=== PATIENT | female | born 1990 | race Caucasian/White ===

== ENCOUNTER 2022-11-22 13:14 | Emergency (ER) | payer BC, SELFPAY ==
[2022-11-22 13:24] VITALS: BP 163/88; PULSE 89; RESP 18; TEMP 36.6; O2SAT 100; BMI 29.4
[2022-11-22] MEDS: 0.9 % SODIUM CHLORIDE 1000 ml 1,000 ML IV (13:42)
[2022-11-22] MEDS: ONDANSETRON 2 MG/ML inj 4 MG IVP ×2 (13:42→16:00)
--- NOTE | 2022-11-22 13:49 | ED_ITS ---
HPI - General Adult General Chief complaint: Unspecified Complaint, Adult Stated complaint: Numbness Hands/Feet Tunnel Vision Time Seen by Provider: 11/22/22 13:23 History of Present Illness HPI narrative: This 32-year-old female comes in reporting episodes of tingling in her hands and which she calls tunnel vision. She states that she was positive for COVID 6 weeks ago. Since then she has had episodes of these symptoms. She is otherwise in good health but states that she is undergoing treatments for infertility. She did start progesterone about 10 days ago but had these symptoms prior to that. She has had some nausea and vomiting. She does not report any dysuria, fever, or abdominal pain. She does get tension headaches and currently does have a headache. Related Data Home Medications Medication Instructions Recorded Confirmed sertraline 50 mg tablet 50 mg PO 10/08/22 10/08/22 Previous Rx's Medication Instructions Recorded meclizine 25 mg tablet 25 mg PO QID #20 tabs 11/22/22 ondansetron HCl 4 mg tablet 4 mg PO Q6H #20 tabs 11/22/22 Allergies Allergy/AdvReac Type Severity Reaction Status Date / Time metoclopramide [From Reglan] Allergy Severe syncope Verified 10/08/22 14:10 Review of Systems Status of ROS: Reports: 10 or more systems reviewed and unremarkable except as noted in History and below Narrative: Constitutional: No fevers, no weight gain or loss. Eyes: No discharge. No vision changes. HENT: No congestion, no sore throat, no ear pain. Cardiovascular: No chest pain, no palpitations. Respiratory: No shortness of breath, no wheezes, no cough. Gastrointestinal: No abdominal pain, no diarrhea. Nausea with vomiting. Genitourinary: No dysuria, no hematuria. Musculoskeletal: Normal range of motion. Skin: No rashes, no pruritis. Neurological: No weakness, speech change. She has episodes of tingling in her hands with lightheadedness. Endo/Heme/Allergies: No bruising or bleeding. No polydipsia. Pysch: no suicidality, no anxiety, no insomnia. All other systems reviewed and are negative. PFSH PFSH Social History Smoking Status: Never smoker Non-prescribed substance use: denies use Exam Const: Vital Signs, click to edit/add: Vital Signs - 24 hr 11/22/22 13:24 11/22/22 14:21 11/22/22 16:00 Temperature 97.8 F Pulse Rate [Right Pulse Oximeter] 89 76 92 Respiratory Rate 18 14 Blood Pressure [Ri ght Upper Arm] 163/88 H 124/77 172/98 H Pulse Oximetry 100 97 98 Oxygen Delivery Me thod Room Air Room Air Room Air 11/22/22 16:30 11/22/22 16:45 Temperature Pulse Rate [Right Pulse Oximeter] 99 93 Respiratory Rate 24 22 Blood Pressure [Ri ght Upper Arm] 178/102 H 191/107 H Pulse Oximetry 95 94 Oxygen Delivery Me thod Room Air Room Air Course Vital Signs Vital signs: Initial Vital Signs Temperature 97.8 F 11/22/22 13:24 Temperature Source Temporal Artery Scan 11/22/22 13:24 Pulse Rate 89 11/22/22 13:24 Respiratory Rate 18 11/22/22 13:24 Blood Pressure 163/88 H 11/22/22 13:24 Blood Pressure Mean 113 11/22/22 13:24 Blood Pressure Position Sitting 11/22/22 13:24 Pulse Oximetry 100 11/22/22 13:24 Oxygen Delivery Method 11/22/22 13:24 Vital Signs Temperature 97.8 F 11/22/22 13:24 Pulse Rate 89 11/22/22 13:24 Respiratory Rate 18 11/22/22 13:24 Blood Pressure 163/88 H 11/22/22 13:24 Pulse Oximetry 100 11/22/22 13:24 Oxygen Delivery Method 11/22/22 13:24 Temperature 97.8 F 11/22/22 13:24 Pulse Rate 93 11/22/22 16:45 Respiratory Rate 22 11/22/22 16:45 Blood Pressure 191/107 H 11/22/22 16:45 Pulse Oximetry 94 11/22/22 16:45 Oxygen Delivery Method 11/22/22 16:45 Medical Decision Making MDM Narrative Medical decision making narrative: This patient comes in episodes of dizziness with some brief visual changes. An IV was established and labs were drawn. She received a L of normal saline initially and states that she did not feel much better. Lab results returned with normal findings. She states that she has several in her family who have had various scan of brain tumors and this is a fear that is lurking in the background of her symptoms. So a CT scan of the head is acquired and returns with no acute findings. She also received IV dose of Zofran 4 mg and an oral dose of meclizine 25 mg. This did bring relief to her symptoms. She is reassured with lab and imaging results. She is okay to be discharged home and a prescription is provided for both Zofran and meclizine. Lab Data Labs: Lab Results 11/22/22 11/22/22 11/22/22 Range/Units 14:15 14:15 14:16 WBC 6.01 (4.50-11.00) K/uL RBC 4.85 (4.00-5.20) m/uL Hgb 13.6 (12.0-16.0) gm/dL Hct 41.8 (33.0-51.0) % MCV 86 (80-100) fL MCH 28 (26-34) pg MCHC 33 (32-36) gm/dL RDW Coeff of Dave 13.2 (11.5-15.5) % Plt Count 256 (140-440) K/uL Neut % (Auto) 53.0 (42.0-72.0) % Lymph % (Auto) 40.3 (20-44) % [place] % (Auto) 5.7 (0.0-11.0) % Eos % (Auto) 0.5 (0.0-7.0) % Baso % (Auto) 0.3 (0.0-3.0) % Neut # (Auto) 3.19 (1.7-7.0) K/uL Lymph # (Auto) 2.42 (0.90-2.90) K/uL [place] # (Auto) 0.30 (0.00-0.90) K/UL Eos # (Auto) 0.03 (0.00-0.50) K/uL Baso # (Auto) 0.02 (0.00-0.30) K/uL Sodium 141 (135-149) mmol/L Potassium 3.6 (3.6-5.1) mmol/L Chloride 109 (96-114) mmol/L Carbon Dioxide 23 (20-32) mmol/L BUN 6 (5-24) mg/dL Creatinine 0.6 (0.5-1.5) mg/dL Estimated Creat Clear 148.26 Estimated GFR 124 ml/min Glucose 88 (60-115) mg/dL Calcium 8.6 (8.4-10.6) mg/dL C-Reactive Protein < 0.5 L (0.5-1.0) mg/dL SARS-CoV-2 (PCR) Negative SARS-CoV-2 (Negative) Influenza Type A (PCR) Negative PCR FLU A (Negative) Influenza Type B (PCR) Negative PCR FLU B (Negative) RSV (PCR) Negative PCR RSV (Negative) Imaging Data CT scan - head: Radiologist's impression: Unremarkable noncontrast head CT. Discharge Plan Discharge Clinical Impression: Acute vestibular neuritis Patient Disposition: Home, Self-Care Condition: Improved Additional Instructions: Take medication as needed and indicated. Follow up with MD or return if worsening. Prescriptions: New ondansetron HCl 4 mg tablet 4 mg PO Q6H Qty: 20 0RF meclizine 25 mg tablet 25 mg PO QID Qty: 20 0RF No Action sertraline 50 mg tablet 50 mg PO Label Comments: TAKE ONE TABLET BY MOUTH EVERY DAY DIRECTED Follow Up/Referrals: Provider,Not a Local [Primary Care Provider] - Stand Alone Forms: [facility] Info Instructions
[2022-11-22 14:21] VITALS: BP 124/77; PULSE 76; RESP 14; O2SAT 97
[2022-11-22 14:21] LABS: Basophils Absolute Auto 0.02 K/uL (0.00-0.30); Basophils Percent Auto 0.3 % (0.0-3.0); Eosinophils Absolute Auto 0.03 K/uL (0.00-0.50); Eosinophils Percent Auto 0.5 % (0.0-7.0); Hematocrit 41.8 % (33.0-51.0); Hemoglobin* 13.6 gm/dL (12.0-16.0); Immature Granulocytes Abs Auto 0.01 K/uL (0.00-0.30); Immature Granulocytes Pct Auto 0.2 %; Lymphocytes Absolute Auto 2.42 K/uL (0.90-2.90); Lymphocytes Percent Auto 40.3 % (20-44); Mean Corpuscular HGB Conc 33 gm/dL (32-36); Mean Corpuscular Hemoglobin 28 pg (26-34); Mean Corpuscular Volume 86 fL (80-100); Monocytes Percent Auto 5.7 % (0.0-11.0); Neutrophils Absolute Auto 3.19 K/uL (1.7-7.0); Platelet Count* 256 K/uL (140-440); RDW Coefficient of Variation % 13.2 % (11.5-15.5); Red Blood Count 4.85 m/uL (4.00-5.20); White Blood Count* 6.01 K/uL (4.50-11.00)
[2022-11-22 14:22] LABS: Slide Review Reflex No
[2022-11-22 15:03] LABS: Chloride* 109 mmol/L (96-114); Potassium* 3.6 mmol/L (3.6-5.1); Sodium* 141 mmol/L (135-149)
[2022-11-22 15:05] LABS: Creatinine* 0.6 mg/dL (0.5-1.5); Est. Creatinine Clearance* 148.26; Estimated Glomerular Filt Rate 124 ml/min
[2022-11-22 15:06] LABS: Blood Urea Nitrogen* 6 mg/dL (5-24); Carbon Dioxide* 23 mmol/L (20-32)
[2022-11-22 15:07] LABS: Calcium* 8.6 mg/dL (8.4-10.6); Glucose* 88 mg/dL (60-115)
[2022-11-22 15:10] LABS: C Reactive Protein* < 0.5 mg/dL (0.5-1.0)
[2022-11-22 15:16] LABS: PCR FLU A Negative PCR FLU A (Negative); PCR FLU B Negative PCR FLU B (Negative); PCR RSV Negative PCR RSV (Negative)
[2022-11-22 15:23] LABS: SARS PCR* Negative SARS-CoV-2 (Negative)
--- NOTE | 2022-11-22 15:33 | CRLHL7_ITS ---
For Patients: As a result of the Century Cures Act, medical imaging exams and procedure reports are released immediately into your electronic medical record. You may view this report before your referring provider. If you have questions, please contact your health care provider. INDICATION: Headache and vertigo. TECHNIQUE: CT head without contrast. COMPARISON: None. FINDINGS: CSF spaces: Within normal limits for age. Brain parenchyma and extra-axial spaces: The winter-white differentiation is normal. No sign of mass, hemorrhage, or midline shift. No extra-axial fluid collection. Skull base and calvarium: The visualized paranasal sinuses and mastoid air cells demonstrate no acute or significant findings. The visualized orbits are grossly unremarkable. No skull fractures. IMPRESSION: Unremarkable noncontrast head CT. Please note that all CT scans at this facility use dose modulation, iterative reconstruction, and/or weight-based dosing when appropriate to reduce radiation dose to as low as reasonably achievable. Dictated by Salazar Coelho MD @ 11/22/2022 4:45:29 PM (Electronically Signed)
[2022-11-22 16:00] VITALS: BP 172/98; PULSE 92; O2SAT 98
[2022-11-22] MEDS: MECLIZINE HCL 25 MG TABLET PO (16:00)
[2022-11-22 16:30] VITALS: BP 178/102; PULSE 99; RESP 24; O2SAT 95
[2022-11-22 16:45] VITALS: BP 191/107; PULSE 93; RESP 22; O2SAT 94
--- NOTE | 2022-11-22 17:05 | ED.NURSE ---
any blood pressures entered by this sba underwriter are charted in error.
== END 2022-11-22 17:45 | disposition home or self-care (01) ==
PROVIDERS: Emergency Provider Emergency Medicine Emergency Medical Services
DX: H81.23 Vestibular neuronitis, bilateral (principal)
CPT/HCPCS: 36415; 70450; 80048; 85025; 86140; 87502; 87634; 87635; 96361; 96374; 96376; 99284; A9270; J2405; J7030

== ENCOUNTER 2023-12-31 18:28 | Outpatient (CLI) | payer BC, SELFPAY | END 2023-12-31 18:29 | disposition home or self-care (01) | LOC: AMB 01-03 11:13 | PROVIDERS: Visit Provider Student in an Organized Health Care Education/Training Program | DX: R55 Syncope and collapse (principal); M54.2 Cervicalgia; R11.2 Nausea with vomiting, unspecified | CPT/HCPCS: A0425; A0427 ==

== ENCOUNTER 2023-12-31 19:01 | Emergency (ER) | payer BC, SELFPAY ==
[2023-12-31 19:08] VITALS: BP 141/86; PULSE 83; RESP 18; TEMP 36.4; O2SAT 100; BMI 26.4
--- NOTE | 2023-12-31 19:16 | ED_ITS ---
HPI - General Adult General Chief complaint: Constipation <Donte Lange MD - Last Filed: 01/02/24 23:56> Stated complaint: weak <Donte Lange MD - Last Filed: 01/02/24 23:56> Time Seen by Provider: 12/31/23 19:13 <Donte Lange MD - Last Filed: 01/02/24 23:56> History of Present Illness HPI narrative: Patient here today after having some nausea/dry heaving that triggered LLQ abdominal pain and neck pain at 07/31. Patient had C5- C6 surgery on Tuesday and no BM since that time. Tried enema and suppository at home without effect. 4 mg PO zofran given by EMS. Taking opioids at home after surgery. 33-year-old woman presenting to the emergency department <Donte Lange MD - Last Filed: 01/02/24 23:56> 33-year-old woman presenting to the emergency department with abdominal pain. Patient is postop day number 4, status post C5-C6 disc surgery. She she has been doing well postoperatively until today she started feeling nauseated. She stated that she started having abdominal cramping and then started dry heaving. Right when she was dry heaving she felt very lightheaded and tingly all over. she went to lay down when her significant other was helping her, and she fainted very briefly. He was able to hold her up and put her on the bed. She is now complaining of significant abdominal discomfort that is worse than left lower quadrant but is diffuse. She states that she is passing gas, but is less than usual and she feels very bloated. She had her last dose of narcotics yesterday. She has not had a bowel movement since Tuesday. She denies any fevers. No chills. Her neck pain has been well controlled. She did try an enema earlier today and did not have any results. She is also on daily Colace in the morning and 1 spoonful of Metamucil per day. <Thelma Taveras MD - Last Filed: 01/01/24 00:00> Related Data Home medications: Home Medications Medication Instructions Recorded Confirmed sertraline 50 mg tablet 50 mg PO 10/08/22 10/08/22 acetaminophen 500 mg tablet 500 mg PO Q6H PRN 12/31/23 12/31/23 (Tylenol Extra Strength) docusate sodium 100 mg capsule 100 mg PO BID 12/31/23 12/31/23 hydroxyzine HCl 25 mg tablet 25 mg PO QID PRN 12/31/23 12/31/23 oxycodone 5 mg tablet 5 - 10 mg PO Q4-6H PRN pain 12/31/23 12/31/23 Previous Rx's Medication Instructions Recorded meclizine 25 mg tablet 25 mg PO QID #20 tabs 11/22/22 ondansetron HCl 4 mg tablet 4 mg PO Q6H #20 tabs 11/22/22 <Donte Lange MD - Last Filed: 01/02/24 23:56> Allergies/adverse reactions: Allergies Allergy/AdvReac Type Severity Reaction Status Date / Time metoclopramide [From Reglan] Allergy Severe syncope Verified 10/08/22 14:10 <Donte Lange MD - Last Filed: 01/02/24 23:56> Review of Systems Status of ROS: Reports: 10 or more systems reviewed and unremarkable except as noted in History and below <Thelma Taveras MD - Last Filed: 01/01/24 00:00> [facility] Social History: Social History Smoking Status: Never smoker Non-prescribed substance use: denies use <Donte Lange MD - Last Filed: 01/02/24 23:56> Exam Narrative: Exam Narrative: Well-nourished well-developed patient , appears uncomfortable. Alert and oriented X3. Answers questions appropriately. Mood and affect are appropriate. Thoughts are goal oriented and rational. No tangential or magical thinking noted. Patient speaks in full sentences without needing to catch her breath. HEENT: Normocephalic atraumatic. Pupils are equally round reactive to light. Extraocular muscles are intact. Conjunctivae are moist without any icterus noted. Moist mucous membranes. neck is clearly stiff. Incision on the anterior neck is dressed, there is no surrounding erythema or oozing from the dressing. Cardiovascular: Heart is regular rate and rhythm S1 and S2 are present without any murmurs. Lungs: Clear to auscultation bilaterally no wheezes rhonchi or rales are appreciated. Patient takes deep breaths without any discomfort. Abdomen: Soft and Mildly distended. She does have hypoactive bowel sounds. She has mild tenderness throughout the entire abdomen, left lower quadrant more tender than the remainder of the abdomen. Extremities: Bilateral lower extremities are without edema. Normal DP and PT pulses. Skin: Well perfused without any obvious rashes. <Thelma Taveras MD - Last Filed: 01/01/24 00:00> Const: Vital Signs, click to edit/add: Vital Signs - 24 hr 12/31/23 19:08 12/31/23 21:13 12/31/23 21:25 Temperature 97.6 F Pulse Rate 82 Pulse Rate [Pulse Oximeter] 83 Respiratory Rate 18 Blood Pressure [Le ft Upper Arm] 141/86 H Pulse Oximetry 100 96 97 Oxygen Delivery Me thod Room Air 12/31/23 21:30 12/31/23 21:45 12/31/23 22:00 Temperature Pulse Rate 79 81 84 Pulse Rate [Pulse Oximeter] Respiratory Rate Blood Pressure [Le ft Upper Arm] Pulse Oximetry 98 91 99 Oxygen Delivery Me thod <Donte Lange MD - Last Filed: 01/02/24 23:56> Vital Signs, click to edit/add: Vital Signs - 24 hr 12/31/23 19:08 12/31/23 21:13 12/31/23 21:25 Temperature 97.6 F Pulse Rate 82 Pulse Rate [Pulse Oximeter] 83 Respiratory Rate 18 Blood Pressure [Le ft Upper Arm] 141/86 H Pulse Oximetry 100 96 97 Oxygen Delivery Me thod Room Air 12/31/23 21:30 12/31/23 21:45 12/31/23 22:00 Temperature Pulse Rate 79 81 84 Pulse Rate [Pulse Oximeter] Respiratory Rate Blood Pressure [Le ft Upper Arm] Pulse Oximetry 98 91 99 Oxygen Delivery Me thod <Thelma Taveras MD - Last Filed: 01/01/24 00:00> Course Course ED Course: Differential diagnosis includes postop ileus, narcotic induced ileus, colitis, constipation. Less likely but still on the differential include pancr eatitis, ischemic colitis, UTI. IV is established and patient was given a L of normal saline and Zofran. CBC shows an elevated white cell count 14.86, 88.9% neutrophils. Chemistries are unremarkable. Normal LFTs and lipase. Normal CRP. UA is unremarkable. Negative test. Abdominal x-ray shows multiple air-fluid levels, nonspecific pattern. Given the amount of discomfort she was having and the concern for an obstruction, we did proceed with an abdominal CT scan which shows large stool and gas burden in the colon. There is also an area of ascending colonic wall thickening and mild adjacent fluid which could represent early stercoral colitis. Patient received enema while she was in the ED, no results. <Thelma Taveras MD - Last Filed: 01/01/24 00:00> Vital Signs Vital signs: Initial Vital Signs Temperature 97.6 F 12/31/23 19:08 Temperature Source Temporal Artery Scan 12/31/23 19:08 Pulse Rate 83 12/31/23 19:08 Pulse Rhythm Regular 12/31/23 19:08 Respiratory Rate 18 12/31/23 19:08 Blood Pressure 141/86 H 12/31/23 19:08 Blood Pressure Mean 104 12/31/23 19:08 Blood Pressure Position Sitting 12/31/23 19:08 Pulse Oximetry 100 12/31/23 19:08 Oxygen Delivery Method Room Air 12/31/23 19:08 Vital Signs Temperature 97.6 F 12/31/23 19:08 Pulse Rate 83 12/31/23 19:08 Respiratory Rate 18 12/31/23 19:08 Blood Pressure 141/86 H 12/31/23 19:08 Pulse Oximetry 100 12/31/23 19:08 Oxygen Delivery Method Room Air 12/31/23 19:08 Temperature 97.6 F 12/31/23 19:08 Pulse Rate 84 12/31/23 22:00 Respiratory Rate 18 12/31/23 19:08 Blood Pressure 141/86 H 12/31/23 19:08 Pulse Oximetry 99 12/31/23 22:00 Oxygen Delivery Method Room Air 12/31/23 19:08 <Donte Lange MD - Last Filed: 01/02/24 23:56> Initial Vital Signs Temperature 97.6 F 12/31/23 19:08 Temperature Source Temporal Artery Scan 12/31/23 19:08 Pulse Rate 83 12/31/23 19:08 Pulse Rhythm Regular 12/31/23 19:08 Respiratory Rate 18 12/31/23 19:08 Blood Pressure 141/86 H 12/31/23 19:08 Blood Pressure Mean 104 12/31/23 19:08 Blood Pressure Position Sitting 12/31/23 19:08 Pulse Oximetry 100 12/31/23 19:08 Oxygen Delivery Method Room Air 12/31/23 19:08 Vital Signs Temperature 97.6 F 12/31/23 19:08 Pulse Rate 83 12/31/23 19:08 Respiratory Rate 18 12/31/23 19:08 Blood Pressure 141/86 H 12/31/23 19:08 Pulse Oximetry 100 12/31/23 19:08 Oxygen Delivery Method Room Air 12/31/23 19:08 Temperature 97.6 F 12/31/23 19:08 Pulse Rate 84 12/31/23 22:00 Respiratory Rate 18 12/31/23 19:08 Blood Pressure 141/86 H 12/31/23 19:08 Pulse Oximetry 99 12/31/23 22:00 Oxygen Delivery Method Room Air 12/31/23 19:08 <Thelma Taveras MD - Last Filed: 01/01/24 00:00> Medications Administered Medications: Discontinued Medications Generic Name Dose Route Start Last Admin Trade Name Freq PRN Reason Stop Dose Admin Hydromorphone HCl 0.5 mg 12/31/23 20:57 12/31/23 21:08 Hydromorphone 0.5 Mg/0.5 Ml Inj IVP 12/31/23 20:58 0.5 mg ONCE ONE Administration Sodium Chloride 1,000 mls @ 1,000 mls/hr 12/31/23 20:00 12/31/23 21:37 0.9 % Sodium Chloride 1000 Ml IV 12/31/23 20:59 Infused .Q1H YOBANI Infusion Ketorolac Tromethamine 15 mg 12/31/23 22:25 12/31/23 22:32 Ketorolac 15 Mg/Ml Inj IVP 12/31/23 22:26 15 mg ONCE ONE Administration Ondansetron HCl 4 mg 12/31/23 19:59 12/31/23 21:08 Ondansetron 2 Mg/Ml Inj IVP 12/31/23 20:00 4 mg ONCE ONE Administration <Donte Lange MD - Last Filed: 01/02/24 23:56> Discontinued Medications Generic Name Dose Route Start Last Admin Trade Name Freq PRN Reason Stop Dose Admin Hydromorphone HCl 0.5 mg 12/31/23 20:57 12/31/23 21:08 Hydromorphone 0.5 Mg/0.5 Ml Inj IVP 12/31/23 20:58 0.5 mg ONCE ONE Administration Sodium Chloride 1,000 mls @ 1,000 mls/hr 12/31/23 20:00 12/31/23 21:37 0.9 % Sodium Chloride 1000 Ml IV 12/31/23 20:59 Infused .Q1H YOBANI Infusion Ketorolac Tromethamine 15 mg 12/31/23 22:25 12/31/23 22:32 Ketorolac 15 Mg/Ml Inj IVP 12/31/23 22:26 15 mg ONCE ONE Administration Ondansetron HCl 4 mg 12/31/23 19:59 12/31/23 21:08 Ondansetron 2 Mg/Ml Inj IVP 12/31/23 20:00 4 mg ONCE ONE Administration <Thelma Taveras MD - Last Filed: 01/01/24 00:00> Medical Decision Making MDM Narrative Medical decision making narrative: 33-year-old female with postoperative constipation. Plan below. <Thelma Taveras MD - Last Filed: 01/01/24 00:00> Lab Data Lab results reviewed: Yes I reviewed the patient's lab results <Thelma Taveras MD - Last Filed: 01/01/24 00:00> Labs: Lab Results 12/31/23 12/31/23 Range/Units 20:10 20:36 WBC 14.86 H (4.50-11.00) K/uL RBC 4.79 (4.00-5.20) m/uL Hgb 13.7 (12.0-16.0) gm/dL Hct 41.1 (33.0-51.0) % MCV 86 (80-100) fL MCH 29 (26-34) pg MCHC 33 (32-36) gm/dL RDW Coeff of Dave 12.6 (11.5-15.5) % Plt Count 268 (140-440) K/uL Neut % (Auto) 88.9 H (42.0-72.0) % Lymph % (Auto) 7.5 L (20-44) % [place] % (Auto) 3.3 (0.0-11.0) % Eos % (Auto) 0.1 (0.0-7.0) % Baso % (Auto) 0.1 (0.0-3.0) % Neut # (Auto) 13.20 H (1.7-7.0) K/uL Lymph # (Auto) 1.10 (0.90-2.90) K/uL [place] # (Auto) 0.50 (0.00-0.90) K/UL Eos # (Auto) 0.00 (0.00-0.50) K/uL Baso # (Auto) 0.00 (0.00-0.30) K/uL Abs Immat Gran (auto) 0.00 (0.00-0.30) K/uL Imm/Tot Granulo (auto) 0.1 % Sodium 134 L (135-149) mmol/L Potassium 4.4 (3.6-5.1) mmol/L Chloride 98 (96-114) mmol/L Carbon Dioxide 29 (20-32) mmol/L Anion Gap 7 (7-15) mEq/L BUN 10 (5-24) mg/dL Creatinine 0.7 (0.5-1.5) mg/dL Estimated Creat Clear 125.92 Estimated GFR 119 ml/min Glucose 109 (60-115) mg/dL Calcium 9.3 (8.4-10.6) mg/dL Total Bilirubin 0.4 (0.1-1.5) mg/dL Direct Bilirubin 0.2 (0.0-0.5) mg/dL AST 29 (12-35) U/L ALT 27 (4-35) U/L Alkaline Phosphatase 64 (40-150) U/L C-Reactive Protein 1.0 (0.5-1.0) mg/dL Total Protein 7.8 (6.0-8.3) g/dL Albumin 4.6 (3.3-5.0) g/dL Lipase 37 (23-300) U/L Urine Color Yellow (Yellow) Urine Appearance Clear (Clear) Urine pH 8.5 (5.0-8.5) Ur Specific [place] 1.015 (1.000-1.030) Urine Protein Negative (Negative) Urine Glucose (UA) Negative (Negative) Urine Ketones Negative (Negative) Urine Blood Negative (Negative) Urine Nitrite Negative (Negative) Urine Bilirubin Negative (Negative) Urine Urobilinogen 0.2 (0.2-1.0) Ur Leukocyte Esterase Negative (Negative) Urine RBC 0-2 (0-2) Urine WBC 0-2 (0-5) Ur Squamous Epith Cells None (None-Few) Urine Bacteria None (None) Urine HCG, Qual Negative (Negative) <Donte Lange MD - Last Filed: 01/02/24 23:56> Lab Results 12/31/23 12/31/23 Range/Units 20:10 20:36 WBC 14.86 H (4.50-11.00) K/uL RBC 4.79 (4.00-5.20) m/uL Hgb 13.7 (12.0-16.0) gm/dL Hct 41.1 (33.0-51.0) % MCV 86 (80-100) fL MCH 29 (26-34) pg MCHC 33 (32-36) gm/dL RDW Coeff of [place] 12.6 (11.5-15.5) % Plt Count 268 (140-440) K/uL Neut % (Auto) 88.9 H (42.0-72.0) % Lymph % (Auto) 7.5 L (20-44) % [place] % (Auto) 3.3 (0.0-11.0) % Eos % (Auto) 0.1 (0.0-7.0) % Baso % (Auto) 0.1 (0.0-3.0) % Neut # (Auto) 13.20 H (1.7-7.0) K/uL Lymph # (Auto) 1.10 (0.90-2.90) K/uL [place] # (Auto) 0.50 (0.00-0.90) K/UL Eos # (Auto) 0.00 (0.00-0.50) K/uL Baso # (Auto) 0.00 (0.00-0.30) K/uL Abs Immat Gran (auto) 0.00 (0.00-0.30) K/uL Imm/Tot Granulo (auto) 0.1 % Sodium 134 L (135-149) mmol/L Potassium 4.4 (3.6-5.1) mmol/L Chloride 98 (96-114) mmol/L Carbon Dioxide 29 (20-32) mmol/L Anion Gap 7 (7-15) mEq/L BUN 10 (5-24) mg/dL Creatinine 0.7 (0.5-1.5) mg/dL Estimated Creat Clear 125.92 Estimated GFR 119 ml/min Glucose 109 (60-115) mg/dL Calcium 9.3 (8.4-10.6) mg/dL Total Bilirubin 0.4 (0.1-1.5) mg/dL Direct Bilirubin 0.2 (0.0-0.5) mg/dL AST 29 (12-35) U/L ALT 27 (4-35) U/L Alkaline Phosphatase 64 (40-150) U/L C-Reactive Protein 1.0 (0.5-1.0) mg/dL Total Protein 7.8 (6.0-8.3) g/dL Albumin 4.6 (3.3-5.0) g/dL Lipase 37 (23-300) U/L Urine Color Yellow (Yellow) Urine Appearance Clear (Clear) Urine pH 8.5 (5.0-8.5) Ur Specific [place] 1.015 (1.000-1.030) Urine Protein Negative (Negative) Urine Glucose (UA) Negative (Negative) Urine Ketones Negative (Negative) Urine Blood Negative (Negative) Urine Nitrite Negative (Negative) Urine Bilirubin Negative (Negative) Urine Urobilinogen 0.2 (0.2-1.0) Ur Leukocyte Esterase Negative (Negative) Urine RBC 0-2 (0-2) Urine WBC 0-2 (0-5) Ur Squamous Epith Cells None (None-Few) Urine Bacteria None (None) Urine HCG, Qual Negative (Negative) <Thelma Taveras MD - Last Filed: 01/01/24 00:00> Imaging Data Abdominal x-ray: Attestation: I have reviewed the pertinent imaging results. <Thelma Taveras MD - Last Filed: 01/01/24 00:00> Radiologist's impression: Abdominal pain Technique: Flat and upright views of the abdomen Comparison: None Findings: Nonspecific scattered air-fluid levels are noted on upright imaging. There is prominence of colonic stool and transverse colon gas. The largest loops of small bowel measure up to 2.7 centimeters. No free air under the diaphragm. No acute osseous abnormality. No gross organomegaly. No dystrophic calcifications. Impression: Nonspecific bowel gas pattern with no acute radiographic abnormality appreciated. <Thelma Taveras MD - Last Filed: 01/01/24 00:00> CT scan - abdomen: Attestation: I have reviewed the pertinent imaging results. <Thelma Taveras MD - Last Filed: 01/01/24 00:00> Discharge Plan Discharge Clinical Impression: Constipation <Donte Lange MD - Last Filed: 01/02/24 23:56> Patient Disposition: Home, Self-Care <Donte Lange MD - Last Filed: 01/02/24 23:56> Condition: Stable <Donte Lange MD - Last Filed: 01/02/24 23:56> Additional Instructions: Start 2 scoops of MiraLax per day and continued use of Colace until bowel movements are regular, then can decrease MiraLax use. Increase water intake. Try to do some mild physical activity daily such as walking. Use enemas as needed. Try to decrease narcotic use if possible. <Donte Lange MD - Last Filed: 01/02/24 23:56> Activity Level: Activity as Tolerated <Donte Lange MD - Last Filed: 01/02/24 23:56> Activity as Tolerated <Thelma Taveras MD - Last Filed: 01/01/24 00:00> Prescriptions: No Action sertraline 50 mg tablet 50 mg PO Patient Comments: TAKE ONE TABLET BY MOUTH EVERY DAY DIRECTED ondansetron HCl 4 mg tablet 4 mg PO Q6H Qty: 20 0RF meclizine 25 mg tablet 25 mg PO QID Qty: 20 0RF docusate sodium 100 mg capsule 100 mg PO BID hydroxyzine HCl 25 mg tablet 25 mg PO QID PRN oxycodone 5 mg tablet 5 - 10 mg PO Q4-6H PRN (Reason: pain) acetaminophen [Tylenol Extra Strength] 500 mg tablet 500 mg PO Q6H PRN <Donte Lange MD - Last Filed: 01/02/24 23:56> Follow Up/Referrals: Provider,Not a Local [Primary Care Provider] - <Donte Lange MD - Last Filed: 01/02/24 23:56> Stand Alone [facility] <Donte Lange MD - Last Filed: 01/02/24 23:56>
--- NOTE | 2023-12-31 19:59 | CRLHL7_ITS ---
For Patients: As a result of the Century Cures Act, medical imaging exams and procedure reports are released immediately into your electronic medical record. You may view this report before your referring provider. If you have questions, please contact your health care provider. Indication: Abdominal pain Technique: Flat and upright views of the abdomen Comparison: None Findings: Nonspecific scattered air-fluid levels are noted on upright imaging. There is prominence of colonic stool and transverse colon gas. The largest loops of small bowel measure up to 2.7 centimeters. No free air under the diaphragm. No acute osseous abnormality. No gross organomegaly. No dystrophic calcifications. Impression: Nonspecific bowel gas pattern with no acute radiographic abnormality appreciated. Dictated by Moncho Bauer MD @ 12/31/2023 9:55:49 PM (Electronically Signed)
[2023-12-31 20:24] LABS: Basophils Percent Auto 0.1 % (0.0-3.0); Eosinophils Percent Auto 0.1 % (0.0-7.0); Hematocrit 41.1 % (33.0-51.0); Hemoglobin* 13.7 gm/dL (12.0-16.0); Immature Granulocytes Pct Auto 0.1 %; Lymphocytes Percent Auto 7.5 % (20-44); Mean Corpuscular HGB Conc 33 gm/dL (32-36); Mean Corpuscular Hemoglobin 29 pg (26-34); Mean Corpuscular Volume 86 fL (80-100); Monocytes Percent Auto 3.3 % (0.0-11.0); Neutrophils Percent Auto 88.9 % (42.0-72.0); Platelet Count* 268 K/uL (140-440); RDW Coefficient of Variation % 12.6 % (11.5-15.5); Red Blood Count 4.79 m/uL (4.00-5.20); White Blood Count* 14.86 K/uL (4.50-11.00)
[2023-12-31 20:28] LABS: Slide Review Reflex No
[2023-12-31 20:36] LABS: Chloride* 98 mmol/L (96-114); Potassium* 4.4 mmol/L (3.6-5.1); Sodium* 134 mmol/L (135-149)
[2023-12-31 20:37] LABS: Albumin* 4.6 g/dL (3.3-5.0)
[2023-12-31 20:39] LABS: Anion Gap 7 mEq/L (7-15); Blood Urea Nitrogen* 10 mg/dL (5-24); Carbon Dioxide* 29 mmol/L (20-32); Creatinine* 0.7 mg/dL (0.5-1.5); Est. Creatinine Clearance* 125.92; Estimated Glomerular Filt Rate 119 ml/min
[2023-12-31 20:40] LABS: Alkaline Phosphatase* 64 U/L (40-150); Aspartate Amino Transferase* 29 U/L (12-35); Bilirubin Direct* 0.2 mg/dL (0.0-0.5); Bilirubin Total* 0.4 mg/dL (0.1-1.5); Calcium* 9.3 mg/dL (8.4-10.6); Glucose* 109 mg/dL (60-115); Lipase* 37 U/L (23-300); Total Protein* 7.8 g/dL (6.0-8.3)
[2023-12-31 20:41] LABS: Alanine Aminotransferase* 27 U/L (4-35)
[2023-12-31 20:43] LABS: Appearance Urine Clear (Clear); Bilirubin Urine Negative (Negative); Blood Urine Negative (Negative); Color Urine Yellow (Yellow); Glucose Urine Negative (Negative); Ketones Urine Negative (Negative); Leukocyte Esterase Urine Negative (Negative); Nitrite Urine Negative (Negative); Protein Urine Negative (Negative); Specific Gravity Urine 1.015 (1.000-1.030); Urobilinogen Urine 0.2 (0.2-1.0); pH Urine 8.5 (5.0-8.5)
[2023-12-31 20:46] LABS: Ur HCG Qualitative* Negative (Negative)
[2023-12-31 20:52] LABS: RBC Urine 0-2 (0-2); WBC Urine 0-2 (0-5)
--- NOTE | 2023-12-31 21:00 | CRLHL7_ITS ---
For Patients: As a result of the Century Cures Act, medical imaging exams and procedure reports are released immediately into your electronic medical record. You may view this report before your referring provider. If you have questions, please contact your health care provider. INDICATION: Concern for small bowel obstruction TECHNIQUE: CT abdomen and pelvis acquired with 90 cc Isovue 370 IV contrast. COMPARISON: Same day radiographs FINDINGS: Lower chest: No acute abnormality appreciated. Hepatobiliary: Unremarkable. Spleen: Unremarkable. Pancreas: Unremarkable. Adrenal glands: Unremarkable. Kidneys: No significant parenchymal abnormality. No hydronephrosis. No calculi. Bowel: No small bowel obstruction. Prominent air and stool in the colon. Focal area of ascending colonic wall thickening and adjacent stranding and small volume fluid. The appendix is visualized and appears unremarkable. Vascular: Unremarkable. Lymph nodes: Mildly prominent right lower quadrant nodes. Peritoneum: Right mid abdominal stranding and small volume ascites. : Unremarkable. Soft tissues: Unremarkable. Bones: No acute abnormality appreciated. IMPRESSION: No small bowel obstruction. There is a large colonic air and stool burden, and there is a focal region of ascending colonic wall thickening and mild adjacent fluid which could represent early stercoral colitis. Please note that all CT scans at this facility use dose modulation, iterative reconstruction, and/or weight-based dosing when appropriate to reduce radiation dose to as low as reasonably achievable. Dictated by Moncho Bauer MD @ 12/31/2023 11:19:16 PM (Electronically Signed)
[2023-12-31] MEDS: HYDROmorphone 0.5 mg/0.5 ml inj IVP (21:08)
[2023-12-31] MEDS: 0.9 % SODIUM CHLORIDE 1000 ml 1,000 ML IV (21:08)
[2023-12-31] MEDS: ONDANSETRON 2 MG/ML inj 4 MG IVP (21:08)
[2023-12-31 21:13] VITALS: O2SAT 96
[2023-12-31 21:25] VITALS: PULSE 82; O2SAT 97
[2023-12-31 21:30] VITALS: PULSE 79; O2SAT 98
[2023-12-31 21:45] VITALS: PULSE 81; O2SAT 91
[2023-12-31 22:00] VITALS: PULSE 84; O2SAT 99
[2023-12-31] MEDS: KETOROLAC 15 MG/ML inj IVP (22:32)
--- NOTE | 2024-01-01 | ED.NURSE ---
Enema has been ineffective thus far.
== END 2024-01-01 00:21 | disposition home or self-care (01) ==
PROVIDERS: Emergency Provider Family Medicine
DX: K59.00 Constipation, unspecified (principal)
CPT/HCPCS: 36415; 74019; 74177; 80048; 80076; 81001; 81025; 83690; 85025; 86140; 87086; 94761; 96374; 96375; 99284; 99285; J1170; J1885; J2405; J7030; Q9967

== ENCOUNTER 2024-01-01 16:37 | Outpatient (CLI) | payer BC, SELFPAY | END 2024-01-01 16:38 | disposition home or self-care (01) | LOC: AMB 01-03 12:51 | PROVIDERS: Visit Provider Emergency Medicine Emergency Medical Services | DX: R10.9 Unspecified abdominal pain (principal) | CPT/HCPCS: A0425; A0433 ==

== ENCOUNTER 2025-02-22 00:17 | Emergency (ER) | payer BC, SELFPAY ==
--- OUTSIDE RECORDS SUMMARY | 2025-02-22 00:19 | XMS_ITS ---
Author Organization [facility] Address [address] [place] [id number] Care Team Providers Care Traffic Rate Analyst Name Role Phone No Ref-Primary, Physician Primary Care Provider Anitha Anaya MD Unavailable Home Infusion Status:Closed (Closed) Start date:07/26/2024 Enrollment date:07/27/2024 End date:01/21/2025 Close reason:Therapy Completed Related service episodes:Antiemetic (Closed), Hydration Therapy (Closed), Multivitamin (Closed), Alteplase (Closed) Continued Care and Services Coordination This section includes services coordinated for Home Infusion. [facility] Name Services Phone [facility] [phone]
--- OUTSIDE RECORDS SUMMARY | 2025-02-22 00:19 | XMS_ITS | Clinical Summary ---
Author Organization [facility] [employer] Address [address] [place] [address] Care Team Providers Care Systems Specialist Name Role Phone Needs Pcp, Assignment Primary Care Provider [phone] Source Comments You are receiving this document as you are listed as the primary care provider,follow-up provider, or the patient has been referred to you for consultation.This is in compliance with the Medicare and[facility] EHR Incentive Program,which states Providers who transition their patient to another setting of careor provider of care or refers their patient to another provider of care shouldprovide summary care record for each transition of care or referral. [employer] Allergies Active Allergy Reactions Criticality Noted Date Comments Metoclopramide Respiratory Distress High 12/16/2023 Medications * This document contains information received from the source organization and may not represent a complete record from that organization. VYVANSE 30 MG capsule Take 1 Capsule (30 mg) by mouth every morning. 12/12/2023 Active sertraline (ZOLOFT) 100 MG tablet Take 1 Tablet (100 mg) by mouth daily. 10/17/2023 Active Immunizations Immunization Administration Dates Next Due Pfizer Monovalent 12+ Purple Top 03/28/2021,02/19 Social History Tobacco Use Types Packs/Day Years Used Date Smoking Tobacco: Never Tobacco Cessation:Counseling Given: Not Answered Alcohol Use Standard Drinks/Week Comments Yes 0 (1 standard drink = 0.6 oz pur e alcohol) Comments No Sex and Gender Information Value Date Recorded Sex Assigned at Not on file Legal Sex Female 4:00 PM COAL SAMPLE TESTER Gender Identity Not on file Sexual Orientation Not on file Last Filed Vital Signs Vital Sign Reading Time Taken Comments Blood Pressure 126/79 12/16/2023 11:20 AM COAL SAMPLE TESTER Pulse 67 12/16/2023 11:20 AM COAL SAMPLE TESTER Temperature - - Respiratory Rate - - Oxygen Saturation - - Inhaled Oxygen Concentration - - Weight 83.9 kg (185 lb) 12/16/2023 11:17 AM COAL SAMPLE TESTER Height 178 cm (5' 10.08) 12/16/2023 11:17 AM CS T Body Mass Index 26.48 12/16/2023 11:17 AM COAL SAMPLE TESTER Plan of Treatment Health Maintenance Due Date Last Done Comments Cervical Cancer Screening Due 1992 Hep C Screening (Preventive Services) 1992 HIV Screening (Preventive Services) 2008 Adult Preventive Visit 2010 DTaP/Tdap/Td (1 - Tdap) 2011 HepB (1) 2011 COVID-19 Vaccine (3 - 2023-2 5 season) 2024 03/28/2021, 03/07/2021 Influenza (#1) 2024 Zoster/Shingles (1 of 2) 2042 HPV Vaccine Aged Out No longer eligi ble based on patient's age to complete this topic HepA Aged Out No longer eligi ble based on patient's age to complete this topic Hib Aged Out No longer eligi ble based on patient's age to complete this topic IPV (Polio) Aged Out No longer eligi ble based on patient's age to complete this topic MCV4 Aged Out No longer eligi ble based on patient's age to complete this topic Meningococcal B Aged Out No longer el igible based on patient's age to complete this topic Pneumococcal Aged Out No longer eligi ble based on patient's age to complete this topic Insurance [facility] [employer] Care Teams Systems Specialist Relationship Specialty Start Date End Date Needs Pcp, [place] [address] PCP - General 12/16/23
--- OUTSIDE RECORDS SUMMARY | 2025-02-22 00:19 | XMS_ITS ---
Author Name [id number] Address [address] [facility] [address] [address] Organization [facility] Address [address] [facility] [address] [address] Care Team Providers Care Big Machine Consultant Name Role Phone Arielle Blanco Unavailable Unavailable Allergies and Adverse Reactions Medication/Group Name Reaction Severity Date Reglan 12/03/2024 Plan Date Type Value 12/18/2024 APPOINTMENT TREATMENT 2 HR 12/17/2024 APPOINTMENT TREATMENT 2 HR 12/10/2024 APPOINTMENT TREATMENT 2 HR 12/03/2024 APPOINTMENT TREATMENT 2 HR 12/03/2024 APPOINTMENT NEW PT CONSULT 6 0 MIN Reason for Visit TREATMENT 2 HR Encounters Date Name 12/03/2024 Anemia of (disorder) Immunizations Date Name Route Dose Instructions Refusal Reason Stat us Flu vaccine - Adult Comp leted Medications Date Name Route Dose Frequency Instructions Start Date End Date Status Ondansetron Oral every 8- 12 hours active Famotidine Oral a ctive Magnesium Oxide Oral daily active Promethazine Suppository PRN active Pyridoxine Oral daily a ctive Aspirin Oral acti ve Diphenhydramine Oral Disintegrating Tablet active 12/18 hydrocortisone 100 MG Injection intravenously 100.0 mg Re-initiate treatment only upon physician approval. 2024 active 12/18 methylprednisolone 2000 MG Injection intravenously 125.0 mg Re-initiate treatment only upon physician approval. 2024 active 12/18 famotidine 10 MG/ML Injectable Solution intravenously 20.0 mg Re-initiate treatment only upon physician approval. 2024 active 12/18 1 ML epinephrine 1 MG/ML Injection intramuscularly 0.3 mg once Re-initiate treatment only upon physician approval. 2024 active 12/10 methylprednisolone 2000 MG Injection intravenously 125.0 mg Re-initiate treatment only upon physician approval. 2024 active 12/10 hydrocortisone 100 MG Injection intravenously 100.0 mg Re-initiate treatment only upon physician approval. 2024 active 12/10 famotidine 10 MG/ML Injectable Solution intravenously 20.0 mg Re-initiate treatment only upon physician approval. 2024 active 12/10 1 ML epinephrine 1 MG/ML Injection intramuscularly 0.3 mg once Re-initiate treatment only upon physician approval. 2024 active 12/03 1 ML epinephrine 1 MG/ML Injection intramuscularly 0.3 mg once Re-initiate treatment only upon physician approval. 2024 active 12/03 hydrocortisone 100 MG Injection intravenously 100.0 mg Re-initiate treatment only upon physician approval. 2024 active 12/03 famotidine 10 MG/ML Injectable Solution intravenously 20.0 mg Re-initiate treatment only upon physician approval. 2024 active 12/03 methylprednisolone 2000 MG Injection intravenously 125.0 mg Re-initiate treatment only upon physician approval. 2024 active Problems Diagnosis Status Date of Diagnosi s Anemia of (disorder) Active Iron deficiency anemia (disorder) Active Vital Signs Date Type Value 12/03/2024 Heart Beat 94.00 12/03/2024 Body Temperature 98.00 12/03/2024 Intravascular Systolic 102 12/03/2024 Intravascular Diastolic 65 12/03/2024 Respiratory Rate 16.00 12/03/2024 Oxygen Saturation 98.00 12/03/2024 BSA 2.21 12/03/2024 Pain Scale 4.00 12/03/2024 Weight 228.20 12/03/2024 Height 70.00 12/03/2024 BMI 32.74 12/03/2024 Intravascular Systolic 122 12/03/2024 Intravascular Diastolic 78 12/10/2024 Heart Beat 81.00 12/10/2024 Intravascular Systolic 99 12/10/2024 Intravascular Diastolic 64 12/10/2024 BSA 2.23 12/10/2024 BMI 33.36 12/10/2024 Height 70.00 12/10/2024 Weight 232.50 12/10/2024 Pain Scale 0.00 12/10/2024 Intravascular Systolic 112 12/10/2024 Intravascular Diastolic 63 12/10/2024 Oxygen Saturation 99.00 12/10/2024 Respiratory Rate 16.00 12/10/2024 Body Temperature 98.50 12/10/2024 Heart Beat 94.00 12/18/2024 Height 70.00 12/18/2024 Intravascular Systolic 110 12/18/2024 Intravascular Diastolic 71 12/18/2024 Oxygen Saturation 99.00 12/18/2024 Respiratory Rate 16.00 12/18/2024 Heart Beat 83.00 12/18/2024 Body Temperature 98.10 12/18/2024 Pain Scale 0.00 Notes Section * [facility] Consult (Amended) Patient Name:??MAMI SEQUEIRA Date of :??1990 Date of Service:??12/03/2024 Attending Physician:?Arielle Blanco (Medical Oncology) Referring Physician: Cecy Andersen MD [facility] Reason for Visit 1. ??Patient is in the office today for IV iron??due to iron deficiency anemia in Assessment 1. ??Iron deficiency anemia in Plan 1. ??Proceed with Venofer 300 mg??IV weekly x 3 2. ??Repeat iron studies to be performed under the direction of??[employer] TECHNICAL LEAD SENIOR DEVELOPER 3. ??Patient will return weekly??x 2??for continuation of??treatment 4.?? Today??we reviewed??the??side effects including flu type symptoms as well as??infusional reactions. ??Patient verbalized understanding and agrees to proceed. History of Present Illness 34-year-old woman who is a [id number] with final estimated date of delivery 02/11/2025.?? The patient describes many challenges with her .?? First she experienced infertility for about 12 years. ??She has struggled with endometriosis and anemia as well as ovarian cysts.?? She has had??hyperemesis gravidarum??and is receiving??at home IV fluids and multivitamins.?? She has had extreme??fatigue and was found to be iron deficient. ??Hemoglobin at 10.1, ferritin at 10, iron 42.?Mami denies any complaints of pica. Review of Systems A comprehensive review of systems was performed and the pertinent positives and negatives can be found in the History of Present Illness. Past Medical and Surgical History Anemia Cervical spine surgery C5-C6 Shoulder/bicep surgery Endoscopy/colonoscopy Current Medications Medication List Name Date Aspirin Oral 12/03/2024 Promethazine Suppository 12/03/2024 Magnesium Oxide Oral 12/03/2024 Ondansetron Oral 12/03/2024 Pepcid (Famotidine Oral) 12/03/2024 Unisom SleepMelts (Diphenhydramine Oral Disintegrating Tablet) 12/03/2024 Vitamin B-6 (Pyridoxine Oral) 12/03/2024 Allergies Current Allergy List Allergy Name Severity Status Recording Date Reglan Active 12/03/2024 Family History No significant family history Social History The patient is . ??She has struggled with infertility for 12 years.?? Her and her live in [place]. 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 Vital Signs Blood pressure: 102/65, Pulse: 94, Temperature: 98 F, Respirations: 16, O2 sat: 98%, At Rest, Room Air, Pain Scale: 4, Height: 70 in, Weight: 228.2 lb, BSA: 2.21, BMI: 32.74 kg/m2 Immunizations: COVID 4+ (2023), Elsewhere; Flu vaccine - Adult (12/03/2024), Elsewhere Oxygen Sats 98%, At Rest, Room Air Physical Exam GENERAL:??Alert and oriented x 3. ??In no apparent distress.?? She is seated comfortably HEENT:??Pupils equal round and reactive to light. ??Sclera nonicteric. ??Conjunctive are pink. ??Oropharynx pink and moist no lesions or exudate. LYMPH:??No palpable cervical supraclavicular axillary lymphadenopathy RESP:??No dyspnea with conversation lungs are clear to auscultation CARDIAC:??Regular rate and rhythm no ectopic beats or murmurs noted. ABDOMEN:??Not examined today EXT:??Lower extremities without any edema?? SKIN:??Warm and dry no rashes or petechiae. NEURO: None Focal Additional Labs, Imaging and Other Studies Lab Results 11/20/2024: Hemoglobin 10.0 Iron 42 Ferritin 10 Thank you for allowing me to see MAMI SEQUEIRA in consult. Arielle Blanco RN, LAWN SPRINKLER SERVICER, MA, OCN CC: ? Electronically signed by Arielle Blanco RN, LAWN SPRINKLER SERVICER, MA, OCN 12/03/2024 15:21 WASHER MACHINE
--- OUTSIDE RECORDS SUMMARY | 2025-02-22 00:20 | XMS_ITS | Encounter Summary ---
Author Organization [facility] Address [address] [place] [address] Care Team Providers Care Information Technology Internship Name Role Phone No Ref-Primary, Physician Primary Care Provider Anitha Anaya MD Unavailable [phone] Reason for Visit * Auth/Cert (Routine) Specialty Diagnoses / Procedures Referred By Contac t Referred To Contact well treatment offsider Diagnoses Labor and delivery, indication for care [facility] [address] [place] [address] Phone: tel: fax: Referral ID Status Reason Start Date Expiration Date Visits Re quested Visits Authorized [id number] 1 1 Encounter Details Date Type Department Care Team (Late st Contact Info) Description 02/05/2025 10:38 PM CDT Anesthesia Event [facility] [address] [place] [address] Katlyn Frost MD [facility] [place] [address] [place] [address] Lui Cardona MD [facility] [address] [place], [place] [id number] Anesthesia Record Procedure Summary Procedure Name Responsible Anesthesiologist Anesthesia Start Time Anesthesia Stop Time section (Abdomen) Katlyn Frost MD 02/05/25223702/05/25 2353 Events Date Time Event Comment 02/05/20252231 DIRECTOR OF LAND Ready for Procedure 2237 AN REASSESS I attest that I have identified and re-evaluated the patient immediately before the induction of anesthesia and I am satisfied that the anesthetic plan is suitable for the patient's condition and procedure. The first vital signs recorded are pre-induction. Johnathon Coulter APRN DIRECTOR OF LAND 2237 An Start Anesthesia Star t is defined as when the anesthesia provider assumed care, began anesthesia prep, remained continuously present with the patient, and excludes all time for performing the pre-anesthesia evaluation. The Pre-Anesthesia Evaluation was completed before Anesthesia Start. 223 Quick Note To OR. Sitting for SAB by Anesthesiologist, then supine, SHANEKA, oxygen per nasal, arms padded and secured. All monitors applied. 2240 An Start Data 2240 MD Present 225 Quick Note Spinal attempte d x 2 levels, suspect longer needle needed. None immediately available. Epidural placed uneventfully 2310 MD Present 2311 AN INCISION 2317 Uterine Incision 2320 Baby Delivered 2341 Quick Note Epidural cathet er removed tip intact. 2353 an stop data 2353 An Stop Electronically signed by Johnathon Coulter APRN DIRECTOR OF LAND on February 05, 2025 11:53 PM Meds Name Total fentaNYL 50 mcg/mL 100 mcg ePHEDrine 5 mg/mL in NS 10 mg phenylephrine (FLIP-SYNEPHRINE) injection 150 mcg phenylephrine 0.1 mg/mL infusion (mcg/kg /min) 2.42 mg dexamethasone (DECADRON) 4 mg/mL 4 mg ondansetron 2 mg/mL 4 mg oxytocin 30 units in 500 mL 0.9% NaCl in fusion 210 mL ceFAZolin Sodium (ANCEF) injection 2 g 2 g chloroprocaine PF 3% 20 mL lidocaine 2%-EPINEPHrine 1:200,000 20 mL morphine PF 1 mg/mL 2 mg ketorolac 30mg/mL 30 mg LR 1,900 mL * Agents Name O2 N2O Air * Blood No blood administrations on file. Lines, Drains, and Airways Type Details Placement Removal Incision/Surgical Site Incision; 5; 2345; Lower; Abdomen 02/05/252344 by Elizabeth Malik, RN Peripheral IV 02/05/25; 0844; 18 G ; Anterior, Right; Upper forearm; Chlorhexidine; None; 2; Tolerated well 02/05/25 0844 by Ale An, SUNDAR 02/07/25 0031 by Janae Angel RN Epidural 02/05/25; 223 (created via procedure documentation); Physician; Epidural; L3-4; Anesthesia 02/05/25 2231 by Katlyn Frost MD 02/06/25 0000 by Claire Cosme RN Urinary Drain 02/05/25; 2300; Urethral Catheter; No; franky enciso rn; Surgical procedure; (order for 6 hours after out of OR) 02/05/25 2300 by Elizabeth Malik RN 02/06/25 0630 by Claire Cosme, RN documented in this encounter Social History Tobacco Use Types Packs/Day Years Used Date Smoking Tobacco: Never Smokeless Tobacco: Never Alcohol Use Standard Drinks/Week Comments Not Currently 0 (1 standard drink = 0.6 oz pur e alcohol) [place] Depression Scale Answer Date Recorded Last EPDS Total Score Not on file 02/07/2025 The thought of harming myself has occurred to me . Never 02/07/2025 Adolescent Education Answer Date Record ed Getting School Help Needed Not on file 08/13 Food Insecurity Answer Date Recorded Within the past 12 months, d id you worry that your food would run out before you got money to buy more? No 02/05/2025 Within the past 12 months, d id the food you bought just not last and you didn t have money to get more? No 02/05/2025 Housing Stability Answer Date Recorded Do you have housing? (Housin g is defined as stable permanent housing and does not include staying ouside in a car, in a tent, in an abandoned building, in an overnight custodial, or couch-surfing.) Yes 02/05/2025 Are you worried about losing your housing? No 02/05/2025 Financial Resource Strain Answer Date R ecorded Within the past 12 months, h ave you or your family members you live with been unable to get utilities (heat, electricity) when it was really needed? No 02/05/2025 Transportation Needs Answer Date Record ed Within the past 12 months, h as lack of transportation kept you from medical appointments, getting your medicines, non-medical meetings or appointments, work, or from getting things that you need? No 02/05/2025 Interpersonal Safety Answer Date Record ed Do you feel physically and e motionally safe where you currently live? Yes 02/05/2025 Within the past 12 months, h ave you been hit, slapped, kicked or otherwise physically hurt by someone? No 02/05/2025 Within the past 12 months, h ave you been humiliated or emotionally abused in other ways by your partner or ex-partner? No 02/05/2025 Comments Yes Sex and Gender Information Value Date Recorded Sex Assigned at Not on file Legal Sex Female 10:15 AM NURSE COORDINATOR Gender Identity Not on file Sexual Orientation Not on file documented as of this encounter OR Notes * Anesthesia Postprocedure Evaluation - Katlyn Frost MD - 02/06/2025 6:11 AM CDT Patient: Mami Pete Procedure: Procedure(s): section Anesthesia Type: No value filed. Note: Disposition: Inpatient Postop Pain Control: Uneventful Sign Out: Well controlled pain PONV: No Neuro/Psych: Uneventful Sign Out: Acceptable/Baseline neuro status Airway/Respiratory: Uneventful Sign Out: Acceptable/Baseline resp. status CV/Hemodynamics: Uneventful Sign Out: Acceptable CV status; No obvious hypovolemia; No obvious fluid overload Other NRE: DID A NON-ROUTINE EVENT OCCUR? No Last vitals: Vitals Value Taken Time BP 117/60 02/06/25 0048 Temp Pulse Resp SpO2 100 % 02/06/25 0045 Vitals shown include unfiled device data. Electronically Signed By: Katlyn Frost MD February 06, 2025 6:11 AM * Anesthesia Procedure Notes - Johnathon Coulter APRN CRNA - 02/05/2025 11:20 PM CDT Associated Order(s): Epidural Block Epidural catheter Procedure Note Pre-Procedure Staff - Anesthesiologist: Katlyn Frost MD Performed By: anesthesiologist Location: OR Procedure Start/Stop Times: 02/05/2025 10:31 PM and 02/05/2025 10:54 PM Pre-Anesthestic Checklist: patient identified, IV checked, risks and benefits discussed, informed consent, monitors and equipment checked, pre-op evaluation and at physician/surgeon's request Timeout: Correct Patient: Yes Correct Procedure: Yes Correct Site: Yes Correct Position: Yes Procedure Documentation Procedure: epidural catheter Patient Position: sitting Skin prep: Chloraprep Local skin infiltrated with 3 mL of 2% lidocaine. Insertion Site: L3-4. (midline approach). Technique: LORT air ANDREW at 8 cm. Needle Type: Touhy needle Needle Gauge: 17. Needle Length (Inches): 3.5 Catheter: 19 G. Catheter threaded easily. 5 cm epidural space. Threaded 13 cm at skin. # of attempts: 1 and # of redirects: 1 Assessment/Narrative Paresthesias: No. Test dose of 3 mL at. Test dose negative, 3 minutes after injection, for signs of intravascular, subdural, or intrathecalinjection. Insertion/Infusion Method: LORT air Aspiration negative for Heme or CSF via Epidural Catheter. Sensory Level Left: T6. Sensory Level Right: T6. Medication(s) Administered Medication Administration Time: 02/05/2025 10:31 PM Comments: Spinal attempted x 2 levels - unsuccessful, suspect needle too short - no longer needle immediately available. Epidural catheter placed, ANDREW @ 8cm, no complications FOR [facility] ([facility]) ONLY: Pain Team Contact information: please page the Pain Team Via [employer]Search Pain. During daytime hours, please page the attending first. At night please page the resident first. * Anesthesia Preprocedure Evaluation - Katlyn Frost MD - 02/05/2025 10:41 PM CDT Anesthesia Pre-Procedure Evaluation Patient: Mami Pete : 1990 Procedure : Procedure(s): section Past Medical History: Diagnosis Date ADHD (attention deficit hyperactivity disorder) Anxiety Hyperemesis gravidarum Past Surgical History: Procedure Laterality Date CERVICAL SPINE SURGERY 2023 SHOULDER SURGERY 2016 Allergies Allergen Reactions Reglan [Metoclopramide] Shortness Of Breath, Itching and Difficulty breathing Social History Tobacco Use Smoking status: Never Smokeless tobacco: Never Substance Use Topics Alcohol use: Not Currently Wt Readings from Last 1 Encounters: 02/05/25 108.9 kg (240 lb) Anesthesia Evaluation ROS/MED HX ENT/Pulmonary: - neg pulmonary ROS Neurologic: Cardiovascular: - neg cardiovascular ROS METS/Exercise Tolerance: Hematologic: Musculoskeletal: GI/Hepatic: Renal/Genitourinary: Endo: (+) Obesity, Psychiatric/Substance Use: Infectious Disease: Malignancy: Other: Hyperemesis gravidarum, severe, requiring PICC line for most of . Still dealing with nausea and vomiting, none today. Physical Exam Airway Mallampati: II TM distance: > 3 FB Neck ROM: full Mouth opening: > 3 cm Respiratory Devices and Support Dental Cardiovascular cardiovascular exam normal Pulmonary pulmonary exam normal OUTSIDE LABS: CBC: Lab Results Component Value Date WBC 10.6 02/05/2025 WBC 16.0 (H) 11/27/2024 HGB 11.7 02/05/2025 HGB 11.0 (L) 11/27/2024 HCT 35.2 02/05/2025 HCT 32.7 (L) 11/27/2024 PLT 190 02/05/2025 PLT 209 11/27/2024 BMP: Lab Results Component Value Date NA 135 11/27/2024 NA 139 10/22/2024 POTASSIUM 4.2 11/27/2024 POTASSIUM 4.3 10/22/2024 CHLORIDE 103 11/27/2024 CHLORIDE 106 10/22/2024 CO2 19 (L) 11/27/2024 CO2 21 (L) 10/22/2024 BUN 4.0 (L) 11/27/2024 BUN 5.2 (L) 10/22/2024 CR 0.60 11/27/2024 CR 0.55 10/22/2024 GLC 84 11/27/2024 GLC 92 10/22/2024 COAGS: No results found for: PTT, INR, FIBR POC: No results found for: BGM, HCG, HCGS HEPATIC: Lab Results Component Value Date ALBUMIN 3.4 (L) 11/27/2024 PROTTOTAL 6.5 11/27/2024 ALT 11 11/27/2024 AST 25 11/27/2024 ALKPHOS 97 11/27/2024 BILITOTAL 0.2 11/27/2024 OTHER: Lab Results Component Value Date UNRULY 8.8 11/27/2024 MAG 2.0 10/22/2024 LIPASE 22 10/22/2024 Anesthesia Plan ASA Status: 2 Anesthesia Type: Spinal. Consents Anesthesia Plan(s) and associated risks, benefits, and realistic alternatives discussed. Questions answered and patient/metals sales representative(s) expressed understanding. - Discussed: - Discussed with: Patient Postoperative Care Comments: Katlyn Frost MD Clinically Significant Risk Factors Present on Admission # Drug Induced Platelet Defect: home medication list includes an antiplatelet medication documented in this encounter Miscellaneous Notes * Anesthesia Care Transfer Note - Johnathon Coulter APRN CRNA - 02/05/2025 11:52 PM CDT Patient: Mami Pete Procedure: Procedure(s): section Diagnosis: 39 weeks gestation of [Z3A.39] Diagnosis Additional Information: No value filed. Anesthesia Type: No value filed. Note: Oropharynx: spontaneously breathing Level of Consciousness: awake Oxygen Supplementation: room air Independent Airway: airway patency satisfactory and stable Dentition: dentition unchanged Vital Signs Stable: post-procedure vital signs reviewed and stable Report to RN Given: handoff report given Patient transferred to: Labor and Delivery Comments: To L/D, report to RN. Vitals: Vitals Value Taken Time BP 88/50 02/05/25 2350 Temp Pulse Resp SpO2 Electronically Signed By: Johnathon Coulter APRN CRNA February 05, 2025 11:52 PM documented in this encounter Plan of Treatment Not on file documented as of this encounter Procedures Procedure Name Priority Date/Time Associated Diagnosis Comments ANE EPIDURAL BLOCK Routine 02/05/2025 10 :31 PM CDT documented in this encounter Results * FV AN EPIDURAL DUMMY PERFORMABLE (02/05/2025 10:31 PM CDT) Narrative Johnathon Coulter APRN CRNA - 02/05/2025 10:31 PM CDT Johnathon Coulter APRN CRNA 02/05/2025 11:23 PM Epidural catheter Procedure Note Pre-Procedure Staff - Anesthesiologist: Katlyn Frost MD Performed By: anesthesiologist Location: OR Procedure Start/Stop Times: 02/05/2025 10:31 PM and 02/05/2025 10:54 PM Pre-Anesthestic Checklist: patient identified, IV checked, risks and benefits discussed, informed consent, monitors and equipment checked, pre-op evaluation and at physician/surgeon's request Timeout: Correct Patient: Yes Correct Procedure: Yes Correct Site: Yes Correct Position: Yes Procedure Documentation Procedure: epidural catheter Patient Position: sitting Skin prep: Chloraprep Local skin infiltrated with 3 mL of 2% lidocaine. Insertion Site: L3-4. (midline approach). Technique: LORT air ANDREW at 8 cm. Needle Type: Touhy needle Needle Gauge: 17. Needle Length (Inches): 3.5 Catheter: 19 G. Catheter threaded easily. 5 cm epidural space. Threaded 13 cm at skin. # of attempts: 1 and # of redirects: 1 Assessment/Narrative Paresthesias: No. Test dose of 3 mL at. Test dose negative, 3 minutes after injection, for signs of intravascular, subdural, or intrathecal injection. Insertion/Infusion Method: LORT air Aspiration negative for Heme or CSF via Epidural Catheter. Sensory Level Left: T6. Sensory Level Right: T6. Medication(s) Administered Medication Administration Time: 02/05/2025 10:31 PM Comments: Spinal attempted x 2 levels - unsuccessful, suspect needle too short - no longer needle immediately available. Epidural catheter placed, ANDREW @ 8cm, no complications FOR [facility] ([facility]) ONLY: Pain Team Contact information: please page the Pain Team Via [employer]. Search Pain. During daytime hours, please page the attending first. At night please page the resident first. Katlyn Frost MD [place] ANESTHESIA Final Result documented in this encounter Visit Diagnoses Not on filedocumented in this encounter Administered Medications Inactive Administered Medications - up to 3 most recent administrations Medication Order MAR Action Action Date Dose Rate Site ceFAZolin Sodium (ANCEF) injection 2 g Routine, 2 g, Intravenous, PRE-OP/PRE-PROCEDURE, Starting on Tue02/05/25 at 2225, For 1 dose, Give no sooner than 60 minutes prior to incision., Indications: Perioperative Pharmacoprophylaxis, Pre-procedureIndications:Perioperat mukesh Pharmacoprophylaxis $Given 02/05/2025 10:40 PM CDT 2 g chloroprocaine (PF) (NESACAINE) 3 % injection EPIDURAL, PRN, Starting on e 02/05/25 at 2256, Anesthesia Intra-op $Given 02/05/2025 10:56 PM CDT 20 mLs dexAMETHasone (DECADRON) injection Intravenous, PRN, Administer over 1 Minutes, Starting on Tue02/05/25 at 2255, Anesthesia Intra-op $Given 02/05/2025 10:55 PM CDT 4 mg ePHEDrine injection Intravenous, PRN, Starting on Tue02/05/25 at 2316, Anesthesia Intra-op $Given 02/05/2025 11:16 PM CDT 10 mg fentaNYL (PF) (SUBLIMAZE) injection EPIDURAL, PRN, Administer over 3-5 Minutes, Starting on Tue02/05/25 at 2309, Anesthesia Intra-op $Given 02/05/2025 11:09 PM CDT 100 mcg ketorolac (TORADOL) injection Intravenous, PRN, Administer over 2 Minutes, Starting on Tue02/05/25 at 2346, Anesthesia Intra-op $Given 02/05/2025 11:46 PM CDT 30 mg lactated ringers infusion Intravenous, CONTINUOUS PRN, Anesthesia Intra-op, Starting on Tue02/05/25 at 2236, Until Tue02/05/25 at 2353 $New Bag 02/05/2025 10:58 PM CDT $New Bag 02/05/2025 10:36 PM CDT Lidocaine-EPINEPHrine (PF) injection EPIDURAL, PRN, Starting on Tue02/05/25 at 2300, Anesthesia Intra-op $Given 02/05/2025 11:09 PM CDT 5 mLs $Given 02/05/2025 11:08 PM CDT 5 mLs $Given 02/05/2025 11:02 PM CDT 5 mLs morphine (PF) (DURAMORPH) injection EPIDURAL, PRN, Administer over 4-5 Minutes, Starting on Tue02/05/25 at 2324, Anesthesia Intra-op $Given 02/05/2025 11:24 PM CDT 2 mg ondansetron (ZOFRAN) injection Intravenous, PRN, Administer over 2-5 Minutes, Starting on Tue02/05/25 at 2241, Anesthesia Intra-op $Given 02/05/2025 10:41 PM CDT 4 mg oxytocin (PITOCIN) 30 units in 500 mL 0.9% NaCl infusion Intravenous, PRN, Starting on Tue02/05/25 at 2320, Anesthesia Intra-op $Given 02/05/2025 11:42 PM CDT 200 mLs $Given 02/05/2025 11:20 PM CDT 10 mLs phenylephrine (FLIP-SYNEPHRINE) injection Intravenous, CONTINUOUS PRN, Starting on Tue02/05/25 at 2318, Anesthesia Intra-op $New Bag 02/05/2025 11:18 PM CDT 150 mcg phenylephrine 0.1 mg/mL infusion (mcg/kg/min) Intravenous, CONTINUOUS PRN, Starting on Tue02/05/25 at 2244, Anesthesia Intra-op Rate/Dose Change 02/05/2025 11:24 PM CDT 0.4 mcg/kg/min 25.92 mL/hr $New Bag 02/05/2025 10:44 PM CDT 0.5 mcg/kg/min 32.4 mL/ hr documented in this encounter Care Teams Information Technology Internship Relationship Specialty Start Date End Date No Ref-Primary, Physician PCP - General 12/14/23 Anitha Anaya MD [facility] [address] [place] [id number] Physician well treatment offsider 09/09/24 documented as of this encounter
--- OUTSIDE RECORDS SUMMARY | 2025-02-22 00:20 | XMS_ITS ---
Author Organization [facility] Address [address] [place] [address] Care Team Providers Care Copper Plate Printer Name Role Phone No Ref-Primary, Physician Primary Care Provider Anitha Anaya MD Unavailable [phone] Antiemetic Status:Closed (Closed) Start date:07/26/2024 Enrollment date:09/05/2024 End date:01/21/2025 Close reason:Therapy Completed Linked medications:Ondansetron HCl (Discontinued) Linked problems:Hyperemesis gravidarum (Active) Related program episode:Home Infusion (Closed) Continued Care and Services Coordination
--- OUTSIDE RECORDS SUMMARY | 2025-02-22 00:20 | XMS_ITS ---
Author Organization [facility] Address [address] [place] [address] Care Team Providers Care Industrial Green Systems Designer Name Role Phone No Ref-Primary, Physician Primary Care Provider Anitha Anaya MD Unavailable [phone] Alteplase Status:Closed (Closed) Start date:07/26/2024 Enrollment date:07/26/2024 End date:01/21/2025 Close reason:Therapy Completed Linked medications:Alteplase (Discontinued) Linked problems:Hyperemesis gravidarum (Active) Related program episode:Home Infusion (Closed) Continued Care and Services Coordination
--- OUTSIDE RECORDS SUMMARY | 2025-02-22 00:20 | XMS_ITS ---
Author Organization [facility] Address [address] [place] [address] Care Team Providers Care Computer Training Specialist Name Role Phone No Ref-Primary, Physician Primary Care Provider Anitha Anaya MD Unavailable [phone] Hydration Therapy Status:Closed (Closed) Start date:07/26/2024 Enrollment date:07/27/2024 End date:01/21/2025 Close reason:Therapy Completed Linked medications:Dextrose in Lactated Ringers (Discontinued) Linked problems:Hyperemesis gravidarum (Active) Related program episode:Home Infusion (Closed) Continued Care and Services Coordination
--- OUTSIDE RECORDS SUMMARY | 2025-02-22 00:20 | XMS_ITS | Encounter Summary ---
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 Diagnoses Labor and delivery, indication for care [facility] [address] [place] [address] Phone: tel: fax: Referral ID Status Reason Start Date Expiration Date Visits Re quested Visits Authorized [id number] 1 1 Encounter Details Date Type Department Care Team (Latest Contact Info) Description 02/05/2025 7:39 AM CDT - 02/09/2025 12:38 PM CDT Hospital Encounter [facility] [address] [place] [id number] Pete Orozco MD [address] [facility] [address] [place], [place] [id number] S/P primary low transverse (Primary Dx); Labor and delivery, indication for care Discharge Disposition: Home or Self Care Social History Tobacco Use Types Packs/Day Years Used Date Smoking Tobacco: Never Smokeless Tobacco: Never Alcohol Use Standard Drinks/Week Comments Not Currently 0 (1 standard drink = 0.6 oz pur e alcohol) Bristol Depression Scale Answer Date Recorded Last EPDS [...] in an abandoned building, in an overnight chcf, or couch-surfing.) Yes 02/05/2025 Are you worried [...] your partner or ex-partner? 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 Gender Identity Not on file Sexual Orientation Not on file documented as of this encounter Last Filed Vital Signs Vital Sign Reading Time Taken Comments Blood Pressure 129/84 02/09/2025 9:00 AM CDT Pulse 88 02/09/2025 9:00 AM CDT Temperature 36.7 C (98 F) 02/09/2025 9:00 AM CDT Respiratory Rate 17 02/09/2025 9:00 AM CDT Oxygen Saturation 99% 02/06/2025 8:44 AM CDT Inhaled Oxygen Concentration - - Weight 104.7 kg (230 lb 13.2 oz) 2024 12:11 PM CDT Height 177.8 cm (5' 10) 02/05/2025 8:05 AM CDT Body Mass Index 33.12 02/05/2025 8:05 AM CDT documented in this encounter Discharge Summaries * Geri Alanis MD - 02/09/2025 9:03 AM CDT Subjective: 34 year old on POD#4 s/p pLTCS for failed induction of labor in the setting of suspected LGA Had painful, pruritic rash likely from chlorhexidine. Now improved with topical steroid and short oral course. Objective: Vitals: Last vitals: BP 129/84 (BP Location: Left arm, Patient Position: Semi-Posadas's, Cuff Size: Adult Regular) Pulse 88 Temp 98 ??F (36.7 ??C) (Oral) Resp 17 Ht 1.778 m (5' 10) Wt 108.9 kg (240lb) SpO2 99% Unknown BMI 34.44 kg/m?? Vital Range in last 24 hours: Temp: [98 ??F (36.7 ??C)-99.3 ??F (37.4 ??C)] 98 ??F (36.7 ??C) Pulse: [65-88] 88 Resp: [16-17] 17 BP: (120-138)/(65-84) 129/84 General: In no acute distress. Cardiovascular: Regular rate Pulmonary: Non-labored Abdomen: diffuse raise, erythematous rash Incision: incision clean, dry, and intact Extremities: Warm and well perfused, mild edema bilaterally. Perineum: Deferred. Relevant Labs: Blood Type: A POS Hemoglobin Date Value Ref Range Status 02/06/2025 10.5 (L) 11.7 - 15.7 g/dL Final 02/05/2025 11.7 11.7 - 15.7 g/dL Final 11/27/2024 11.0 (L) 11.7 - 15.7 g/dL Final Recent Labs Lab Test 02/06/25 0638 02/05/25 0828 11/27/24 1828 10/22/24 1611 08/08/24 2348 06/26/24 1044 HGB 10.5* 11.7 11.0* 11.4* < > -- AST -- -- 25 16 -- 22 ALT -- -- 11 13 -- 21 < > = values in this interval not displayed. Assessment/Plan Mami Pete is a 34 year old delivered on 02/05/2025 11:20 PM via , Low Transverse # s/p - Post-op H&H as expected - Encourage ambulation, diet as tolerated - Pain control: Ibuprofen and Tylenol with oxycodone PRN # contact dermatitis - likely from chlorhexidine - improved with steroids Discharge today Geri Alanis MD documented in this encounter Discharge Instructions * Discharge Instructions* Khushboo Levin RN - 02/09/2025 11:23 AM CDT Warning Signs after Having a Baby Keep this paper on your fridge or somewhere else where you can see it. Call your provider if you have any of these symptoms up to 12 weeks after having your baby. Thoughts of hurting yourself or your baby Pain in your chest or trouble breathing Severe headache not helped by pain medicine Eyesight concerns (blurry vision, seeing spots or flashes of light, other changes to eyesight) Fainting, shaking or other signs of a seizure Call if you feel that it is an emergency. The symptoms below can happen to anyone after giving . They can be very serious. Call your provider if you have any of these warning signs. My provider???s phone number: Losing too much blood (hemorrhage) Call your provider if you soak through a pad in less than an hour or pass blood clots bigger than agolf ball. These may be signs that you are bleeding too much. Blood clots in the legs or lungs After you give , your body naturally clots its blood to help prevent blood loss. Sometimes this increased clotting can happen in other areas of the body, like the legs or lungs. This can block your blood flow and be very dangerous. Call your provider if you: Have a red, swollen spot on the back of your leg that is warm or painful when you touch it. Are coughing up blood. Infection Call your provider if you have any of these symptoms: Fever of 100.4 F (38 C) or higher. Pain or redness around your stitches if you had an incision. Any yellow, white, or green fluid coming from places where you had stitches or surgery. Mood Problems ( depression) Many people feel sad or have mood changes after having a baby. But for some people, these mood swings are worse. Call your provider right away if you feel so anxious or nervous that you can't care for yourself oryour baby. Preeclampsia (high blood pressure) Even if you didn't have high blood pressure when you were , you are at risk for the high blood pressure disease called preeclampsia. This risk can last up to 12 weeks after giving . Call your provider if you have: Pain on your right side under your rib cage Sudden swelling in the hands and face Remember: You know your body. If something doesn't feel right, get medical help. For informational purposes only. Not to replace the advice of your health care provider. Copyright 2020 [facility]. All rights reserved. Clinically reviewed by CYNTHIA Moyer-OB, MSN. [employer] [id number] - Rev 01/13. documented in this encounter Medications at Time of Discharge clobetasol (TEMOVATE) 0.05 % external ointmentIndicati ons:Labor and delivery, indication for care Apply topically 2 times daily. 453 g 02/09/2025 oxyCODONE (ROXICODONE) 5 MG tabletIndication s:Labor and delivery, indication for care Take 1 tablet (5 mg) by mouth every 4 hours as needed for moderate pain. 15 tablet 02/09/2025 predniSONE (DELTASONE) 20 MG tabletIndication s:Labor and delivery, indication for care Take 1 tablet (20 mg) by mouth daily. 3 tablet 02/10/2025 documented as of this encounter Progress Notes * Geri Alanis MD - 02/08/2025 7:35 AM CDT Subjective: 34 year old on POD#3 s/p pLTCS for failed induction of labor in the setting of suspected LGA Patient tearful secondary to rash on abdomen. Patient notes she has had reaction to chlorhexidine in the past. Objective: Vitals: Last vitals: BP 110/45 (BP Location: Left arm, Patient Position: Semi-Posadas's, Cuff Size: Adult Regular) Pulse 74 Temp 98.1 ??F (36.7 ??C) (Oral) Resp 16 Ht 1.778 m (5' 10) Wt 108.9 kg (240 lb) SpO2 99% BMI 34.44 kg/m?? Vital Range in last 24 hours: Temp: [97.8 ??F (36.6 ??C)-98.3 ??F (36.8 ??C)] 98.1 ??F (36.7 ??C) Pulse: [72-91] 74 Resp: [14-16] 16 BP: (110-135)/(45-76) 110/45 General: In no acute distress. Cardiovascular: Regular rate Pulmonary: Non-labored Abdomen: diffuse raise, erythematous rash Incision: incision clean, dry, and intact Extremities: Warm and well perfused, mild edema bilaterally. Perineum: Deferred. Relevant Labs: Blood Type: A POS Hemoglobin Date Value Ref Range Status 02/06/2025 10.5 (L) 11.7 - 15.7 g/dL Final 02/05/2025 11.7 11.7 - 15.7 g/dL Final 11/27/2024 11.0 (L) 11.7 - 15.7 g/dL Final Recent Labs Lab Test 02/06/25 0638 02/05/25 0828 11/27/24 1828 10/22/24 1611 08/08/24 2348 06/26/24 1044 HGB 10.5* 11.7 11.0* 11.4* < > -- AST -- -- 25 16 -- 22 ALT -- -- 11 13 -- 21 < > = values in this interval not displayed. Assessment/Plan Mami Pete is a 34 year old delivered on 02/05/2025 11:20 PM via # s/p - Post-op H&H as expected - Encourage ambulation, diet as tolerated - Pain control: Ibuprofen and Tylenol with oxycodone PRN # contact dermatitis - likely from chlorhexidine - plan stronger topical steroid and PO steroid course Likely discharge tomorrow Geri Alanis MD * Izzy Ashby RN - 02/07/2025 10:09 AM CDT Public Health Nurse (PHN) in to see patient to discuss [facility] ([facility]) programs.Patient is not interested in referral for a nurse visit at this time but will reach out to [facility] if interested in scheduling a nurse visit. PHN discussed [facility] community resource guide and rack cards and left these resources with patient. * Orlando Cardenas MD - 02/07/2025 7:45 AM CDT POD 2 Vss afeb c/o itching and rash on abd FF,NT Incision- intact Ext NT Imp- POD 2, rash due to prep Plan-Benadryl and topical hydrocortisone. Routine care discharge tomorrow * Liseth Ayala PA-C - 02/06/2025 7:[address] [facility] Obstetrics Post-Op / Progress Note Interval History: Doing well. Pain is well-controlled. Ambulatory. Voiding independently. well. Lochia within normal limits, denies clots. C/o dizziness, notable low BPs, up with assistance. Physical Exam: All vitals stable Patient Vitals for the past 8 hrs: BP Temp Temp src Pulse Resp SpO2 02/06/25 0609 123/53 -- -- 62 16 98 % 02/06/25 0508 127/54 -- -- 72 18 97 % 02/06/25 0429 138/57 -- -- 77 16 96 % 02/06/25 0333 126/65 -- -- 60 18 97 % 02/06/25 0230 125/61 98.5 ??F (36.9 ??C) Oral 64 16 98 % 02/06/25 0119 121/68 -- -- -- -- -- 02/06/25 0109 125/71 -- -- -- -- -- 02/06/25 0059 121/65 -- -- -- -- -- 02/06/25 0048 117/60 -- -- -- -- -- 02/06/25 0043 106/59 -- -- -- -- -- 02/06/25 0040 -- -- -- -- -- 100 % 02/06/25 0038 101/59 -- -- -- -- -- 02/06/25 0033 99/57 -- -- -- -- -- 02/06/25 0030 -- -- -- -- -- 97 % 02/06/25 0028 94/52 -- -- -- -- -- 02/06/25 0023 91/54 -- -- -- -- -- 02/06/25 0020 89/51 -- -- -- -- 96 % 02/06/25 0016 96/53 -- -- -- -- -- 02/06/25 0010 -- -- -- -- -- (!) 80 % 02/06/25 0005 (!) 66/48 -- -- -- -- -- 02/06/25 0003 (!) 62/37 -- -- -- -- -- 02/06/25 0000 89/49 -- -- -- -- -- 02/05/252356 (!) 82/52 -- -- -- -- -- 02/05/252353 (!) 79/52 -- -- -- -- -- 02/05/25 2350 (!) 88/50 -- -- -- -- -- Constitutional: healthy, alert, no distress. Abdomen: Abdomen soft, non-tender. BS normal. No masses, fundus is firm. Incision: Clean, dry and pressure dressing intact, no erythema or induration. Extremities: minimal edema Data: All laboratory data related to this surgery reviewed Lab Results Component Value Date HGB 10.5 (L) 02/06/2025 Assessment and Plan: Assessment: Post-operative day #1 Low transverse primary section Doing well. Plan: Ambulation encouraged Pain control: acetaminophen and ibuprofen PRN Diet as tolerated Activity as tolerated Continue cares Dispo: anticipate discharge home in 1-2 days. Liseth Ayala PA-C * Pete Orozco MD - 02/05/2025 10:26 PM CDT February 05, 2025 S: Since pitocin was increased to 24 mU/min, pt states UCs have gotten more painful, rating up to 8/10. O: BP 106/56 Temp 98 ??F (36.7 ??C) (Oral) Resp 16 Ht 1.778 m (5' 10) Wt 108.9 kg (240 lb) BMI 34.44 kg/m?? Gen: NAD, A&O x 3 Abd: gravid, NT SVE: /-3 to -4 FHT: cat 1 TOCO: Q2 min pit@ 24 A/P: 34 yo @ 39 w 1 d, here for eIOL for suspected LGA. AVSS. - No cervical change, s/p dilapan, misoprostol x 2, pitocin. - Offered option of continuing at pitocin 24 for a couple hours to see if any change due to pt getting more uncomfortable, vs proceeding with primary C/S - Risks, benefits, and alternatives of continued management vs. section discussed with thepatient. Risks of section discussed in detail, including risk of bleeding with possible need for blood transfusion, visceral injury including but not limited to damage to bladder/bowel/ureter, infection, prolonged hospitalization. Pt desires to proceed with primary C/S. Patient understandsand agrees, all questions have been answered. Informed consent obtained. PETE OROZCO MD * Evita Leon RN - 02/05/2025 9:20 PM CDT Bo hung complete * Evita Leon RN - 02/05/2025 9:10 PM CDT Bo hung RN presence at bedside. * Pete Orozco MD - 02/05/2025 5:30 PM CDT February 05, 2025 S: Pt feeling UCs, not too uncomfortable at this time. O: BP 131/77 Temp 98.1 ??F (36.7 ??C) (Oral) Resp 18 Ht 1.778 m (5' 10) Wt 108.9 kg (240 lb) BMI 34.44 kg/m?? Gen: NAD, A&Ox 3 Abd: gravid, NT SVE: /50/-4 FHT: cat 1 reactive TOCO: Q2-3 min, pit @ 14 A/P: 34 yo @ 39 w 1 d, here for eIOL, suspected LGA. AVSS. - d/w pt no cervical change (s/p dilapan, cytotec x 2, pitocin). Options: continue pitocin per protocol, return to more cervical ripening (eg. Cytotec, cook), or section. After discussion, pt would like to continue pitocin. However, if no cervical change, then would proceed with C/S at that time. She would not be interested in going back to cervical ripening. Of note, EFW at 36 wks 7 lb 11 oz 95% (HC 92%, AC 98%). - clear liquids only for now PETE OROZCO MD documented in this encounter H&P Notes * Pete Orozco MD - 02/05/2025 7:50 AM CDT February 05, 2025 34 yo @ 39 w 1 d here for IOL for suspected LGA. 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 US on 01/18 showed EFW 3485 g @ 95%, HC 92%, AC 98%. There was concern for CPD due to exam in the office with narrow pubic arch and high station. She underwent dilapan placement in the office yesterday. PNLs: A pos, ABS neg, RI, RPR NR, HBsAg neg, HIV neg, GBS neg BP 106/56 Temp 98 ??F (36.7 ??C) (Oral) Resp 16 Ht 1.778 m (5' 10) Wt 108.9 kg (240 lb) BMI 34.44 kg/m?? Gen: NAD, A&O x 3 Abd: gravid, NT SVE: dilapan removed x 3. 1/50/-4, vertex FHT: cat 1 TOCO: irregular A/P: 34 yo @ 39 w 1 d here for IOL due to suspected LGA/CPD. AVSS. - dilapan removed today, exam as above. May benefit from some additional misoprostol for ripening. Plan for misoprostol per PO protocol x 2, then pitocin - pt is aware of high station, possibility of C/S if station does not descend and has been counseled regarding concern of CPD in the office - GBS neg - EFW 9 lb PETE OROZCO MD documented in this encounter Miscellaneous Notes * Plan of Care - Khushboo Levin RN - 02/09/2025 11:04 AM CDT Data: Vital signs within normal limits. checks within normal limits - see flow record. Patient eating and drinking normally. Patient able to empty bladder independently and is up ambulating. No apparent signs of infection. Incision healing well, rash improving. Patient performing self cares and is able to care for infant. Action: Patient medicated during the shift for pain and cramping. See MAR. Patient reassessed within 1 hour after each medication and pain was improved - patient stated she was comfortable. Patient discharge education completed, no further questions. Response: Positive attachment behaviors observed with infant. Support person present. Plan: Anticipate discharge to home with infant today. Problem: Adult Inpatient Plan of Care Goal: Plan of Care Review Outcome: Met Flowsheets (Taken 02/09/2025 1104) Outcome Evaluation: Discharge to home with neworn today Plan of Care Reviewed With: patient spouse Overall Patient Progress: improving Goal: Patient-Specific Goal (Individualized) Outcome: Met Goal: Absence of Hospital-Acquired Illness or Injury Outcome: Met Goal: Optimal Comfort and Wellbeing Outcome: Met Goal: Readiness for Transition of Care Outcome: Met Problem: ( Delivery) Goal: Successful Parent Role Transition Outcome: Met Goal: Hemostasis Outcome: Met Goal: Effective Bowel Elimination Outcome: Met Goal: Fluid and Electrolyte Balance Outcome: Met Goal: Absence of Infection Signs and Symptoms Outcome: Met Goal: Anesthesia/Sedation Recovery Outcome: Met Goal: Optimal Pain Control and Function Outcome: Met Goal: Nausea and Vomiting Relief Outcome: Met Goal: Effective Urinary Elimination Outcome: Met Goal: Effective Oxygenation and Ventilation Outcome: Met Goal Outcome Evaluation: Plan of Care Reviewed With: patient, spouse Overall Patient Progress: improvingOverall Patient Progress: improving Outcome Evaluation: Discharge to home with neworn today * Note - Jane Beyer RN - 02/09/2025 10:35 AM CDT Follow up with patient. Baby had been congested yesterday, has now cleared. Since cleared patient latching for longer periods. Increasing volume with pumping. Per peds will decrease pumping. Discussed when baby nursing well, actively swallowing, can stop pumping, will follow up with peds to monitorweight and jaundice. Has a pump for home. Reviewed resources as an outpatient. * Plan of Care - Trisha Ladd RN - 02/09/2025 5:45 AM CDT Vital signs stable. assessment WDL. Uterine fundus is firm and midline. Scant vaginal bleeding. Using Tylenol and Ibuprofen for pain with good relief. Incision assessment WDL and open to air. Abdominal rash red and itchy, but improving. Using oral and topical steroid. Up and ambulating; free of dizziness. Voiding w/o difficulty. Tolerating a regular diet. well every 2-3 hours and pumping. Questions/concerns addressed. Problem: Adult Inpatient Plan of Care Goal: Plan of Care Review Description: The Plan of Care Review/Shift note should be completed every shift. The Outcome Evaluation is a brief statement about your assessment that the patient is improving, declining, or no change. This information will be displayed automatically on your shift note. Outcome: Progressing Flowsheets (Taken 02/09/2025 0533) Plan of Care Reviewed With: patient Overall Patient Progress: improving Goal: Patient-Specific Goal (Individualized) Description: You can add care plan individualizations to a care plan. Examples of Individualizationmight be: Parent requests to be called daily at 9am for status, I have a hard time hearing out of my right ear, or Do not touch me to wake me up as it startles me. Outcome: Progressing Goal: Absence of Hospital-Acquired Illness or Injury Outcome: Progressing Intervention: Prevent Skin Injury Recent Flowsheet Documentation Taken 02/08/20252312 by Trisha Ladd RN Body Position: position changed independently Intervention: Prevent and Manage VTE (Venous Thromboembolism) Risk Recent Flowsheet Documentation Taken 02/08/20252312 by Trisha Ladd RN VTE Prevention/Management: SCDs off (sequential compression devices) Intervention: Prevent Infection Recent Flowsheet Documentation Taken 02/08/20252312 by Trisha Ladd RN Infection Prevention: rest/sleep promoted hand hygiene promoted Goal: Optimal Comfort and Wellbeing Outcome: Progressing Intervention: Provide Person-Centered Care Recent Flowsheet Documentation Taken 02/08/20252312 by Trisha Ladd RN Trust Relationship/Rapport: care explained choices provided questions answered questions encouraged thoughts/feelings acknowledged Goal: Readiness for Transition of Care Outcome: Progressing Problem: ( Delivery) Goal: Successful Parent Role Transition Outcome: Progressing Intervention: Support Parent Role Transition Recent Flowsheet Documentation Taken 02/08/20252312 by Trisha Ladd RN Supportive Measures: active listening utilized decision-making supported self-care encouraged Parent-Child Attachment Promotion: caring behavior modeled cue recognition promoted rooming-in promoted [id number]-bapt contact encouraged Goal: Hemostasis Outcome: Progressing Goal: Effective Bowel Elimination Outcome: Progressing Goal: Fluid and Electrolyte Balance Outcome: Progressing Goal: Absence of Infection Signs and Symptoms Outcome: Progressing Goal: Anesthesia/Sedation Recovery Outcome: Progressing Goal: Optimal Pain Control and Function Outcome: Progressing Goal: Nausea and Vomiting Relief Outcome: Progressing Goal: Effective Urinary Elimination Outcome: Progressing Goal: Effective Oxygenation and Ventilation Outcome: Progressing Intervention: Optimize Oxygenation and Ventilation Recent Flowsheet Documentation Taken 02/08/20252312 by Trisha Ladd RN Head of Bed (HOB) Positioning: HOB at 45 degrees Goal Outcome Evaluation: Plan of Care Reviewed With: patient Overall Patient Progress: improvingOverall Patient Progress: improving * Plan of Care - Mary Varela RN - 02/08/2025 5:59 PM CDT Goal Outcome Evaluation: Plan of Care Reviewed With: patient, spouse Overall Patient Progress: improving Outcome Evaluation: Abdominal rash and pain improving Data: Vital signs within normal limits. checks within normal limits - see flow record. Patient eating and drinking normally. Patient able to empty bladder independently and is up ambulating. Patient performing self cares, is able to care for and is /pumping for infantevery 2-3 hours. Incision open to air and clean/dry and intact. Abdominal rash itchy/red/inflamed, has been improving throughout the day. Pt taking oral steroid, benadryl and cream for rash. Action: Patient medicated with ibuprofen, tylenol and oxycodone x1 during the shift for pain. See MAR. Adequate pain control noted by patient. Patient education done, see flow record. Response: Positive attachment behaviors observed with infant. Patient's spouse present this shift and supportive. Plan: Continue current plan of care. Anticipate discharge on 02/09/25. Will continue to monitor and treat. Problem: Adult Inpatient Plan of Care Goal: Plan of Care Review Description: The Plan of Care Review/Shift note should be completed every shift. The Outcome Evaluation is a brief statement about your assessment that the patient is improving, declining, or no change. This information will be displayed automatically on your shift note. Outcome: Progressing Flowsheets (Taken 02/08/2025 1758) Outcome Evaluation: Abdominal rash and pain improving Plan of Care Reviewed With: patient spouse Overall Patient Progress: improving Goal: Patient-Specific Goal (Individualized) Description: You can add care plan individualizations to a care plan. Examples of Individualizationmight be: Parent requests to be called daily at 9am for status, I have a hard time hearing out of my right ear, or Do not touch me to wake me up as it startles me. Outcome: Progressing Goal: Absence of Hospital-Acquired Illness or Injury Outcome: Progressing Intervention: Prevent and Manage VTE (Venous Thromboembolism) Risk Recent Flowsheet Documentation Taken 02/08/2025 1604 by Mary Varela RN VTE Prevention/Management: SCDs off (sequential compression devices) Taken 02/08/2025 0812 by Mary Varela RN VTE Prevention/Management: SCDs off (sequential compression devices) Intervention: Prevent Infection Recent Flowsheet Documentation Taken 02/08/2025 1604 by Mary Varela RN Infection Prevention: rest/sleep promoted hand hygiene promoted Taken 02/08/2025 0812 by Mary Varela RN Infection Prevention: rest/sleep promoted hand hygiene promoted Goal: Optimal Comfort and Wellbeing Outcome: Progressing Intervention: Monitor Pain and Promote Comfort Recent Flowsheet Documentation Taken 02/08/2025 1604 by Mary Varela, chopped strand operator Interventions: cold applied medication (see MAR) Taken 02/08/2025 0812 by Mary Varela chopped strand operator Interventions: cold applied medication (see MAR) Intervention: Provide Person-Centered Care Recent Flowsheet Documentation Taken 02/08/2025 1604 by Mary Varela, RN Trust Relationship/Rapport: care explained choices provided emotional support provided empathic listening provided questions answered reassurance provided questions encouraged thoughts/feelings acknowledged Taken 02/08/2025 0812 by Mary Varela RN Trust Relationship/Rapport: care explained choices provided emotional support provided empathic listening provided questions answered reassurance provided questions encouraged thoughts/feelings acknowledged Goal: Readiness for Transition of Care Outcome: Progressing Problem: ( Delivery) Goal: Successful Parent Role Transition Outcome: Progressing Goal: Hemostasis Outcome: Progressing Goal: Effective Bowel Elimination Outcome: Progressing Goal: Fluid and Electrolyte Balance Outcome: Progressing Goal: Absence of Infection Signs and Symptoms Outcome: Progressing Goal: Anesthesia/Sedation Recovery Outcome: Progressing Goal: Optimal Pain Control and Function Outcome: Progressing Intervention: Prevent or Manage Pain Recent Flowsheet Documentation Taken 02/08/2025 1604 by Mary Varela, chopped strand operator Interventions: cold applied medication (see MAR) Taken 02/08/2025 0812 by Mary Varela RN Pain Management Interventions: cold applied medication (see MAR) Goal: Nausea and Vomiting Relief Outcome: Progressing Goal: Effective Urinary Elimination Outcome: Progressing Goal: Effective Oxygenation and Ventilation Outcome: Progressing * Note - Jane Beyer RN - 02/08/2025 5:07 PM CDT visit with Mami. States feeling like breasts are starting to fill. Baby at the breastnursing at time of some swallows heard. Encouraged compressions to keep baby active and swallowing.Due to 10% weight loss encouraged pumping on one breast if baby active on the first. Reviewed clogged ducts and mastitis. Offered a weighted feed to see how much baby is transferring. Weighted feed done. Baby brought to breast did slip off of breast with maternal adjustment. Baby relatched. Nursed for less than 10 minutes before fatigue. Education Professor about to rouse infant. Nursed for ashort period before non effective at breast. Transfer of 8 mls. Education Professor changed plan. Bring to breast when due to feed. Pump both breast if baby not active and swallowing, then supplement. Withinfants age baby tummy size 22-27 mls encouraged to offered at least that volume in total with the 8 already taken by breast. Will given ebm first and if not enough will use formula as parents choice. Baby looks slightly jaundice, per bedside nurse recheck wnl. * Plan of Care - Janae Angel RN - 02/08/2025 6:09 AM CDT Vital signs stable. checks WDL. C/s incision CDI, no signs of infection noted in surrounding tissue. Pt is up ad hiren, voiding w/o difficulties. Pt is independent in self cares. Pt is every 2-3 hrs, tolerating well. Began pumping tonight d/t 48 hr wt loss being 9%. Pain wellcontrolled with Tylenol and Ibuprofen. Pt stated increased comfort after each medication. Using benadryl and hydrocortisone cream for abdominal rash. Pt is attentive to all cues and cares. Positive bonding and frequent holding observed. FOB at bedside, supportive of pt. Goal Outcome Evaluation: Plan of Care Reviewed With: patient, spouse Overall Patient Progress: improvingOverall Patient Progress: improving Problem: Adult Inpatient Plan of Care Goal: Plan of Care Review Description: The Plan of Care Review/Shift note should be completed every shift. The Outcome Evaluation is a brief statement about your assessment that the patient is improving, declining, or no change. This information will be displayed automatically on your shift note. Outcome: Progressing Flowsheets (Taken 02/07/20252314) Plan of Care Reviewed With: patient spouse Overall Patient Progress: improving Goal: Absence of Hospital-Acquired Illness or Injury Intervention: Prevent Skin Injury Recent Flowsheet Documentation Taken 02/07/20252305 by Janae Angel RN Body Position: position changed independently Taken 02/07/20251954 by Janae Angel RN Body Position: position changed independently Intervention: Prevent Infection Recent Flowsheet Documentation Taken 02/07/20252305 by Janae Angel RN Infection Prevention: hand hygiene promoted rest/sleep promoted single patient room provided Taken 02/07/20251954 by Janae Angel RN Infection Prevention: hand hygiene promoted rest/sleep promoted single patient room provided Goal: Optimal Comfort and Wellbeing Intervention: Monitor Pain and Promote Comfort Recent Flowsheet Documentation Taken 02/07/20251923 by Janae Angel RN Pain Management Interventions: cold applied medication (see MAR) Intervention: Provide Person-Centered Care Recent Flowsheet Documentation Taken 02/07/20252305 by Janae Angel RN Trust Relationship/Rapport: care explained choices provided emotional support provided questions answered empathic listening provided questions encouraged reassurance provided thoughts/feelings acknowledged Taken 02/07/20251954 by Janae Angel RN Trust Relationship/Rapport: care explained choices provided emotional support provided questions answered empathic listening provided questions encouraged reassurance provided thoughts/feelings acknowledged Problem: Labor Goal: Stable Wellbeing Intervention: Promote and Monitor Wellbeing Recent Flowsheet Documentation Taken 02/07/20252305 by Janae Angel RN Body Position: position changed independently Taken 02/07/20251954 by Janae Angel RN Body Position: position changed independently Goal: Absence of Infection Signs and Symptoms Intervention: Prevent or Manage Infection Recent Flowsheet Documentation Taken 02/07/20252305 by Janae Angel RN Infection Prevention: hand hygiene promoted rest/sleep promoted single patient room provided Taken 02/07/20251954 by Janae Angel RN Infection Prevention: hand hygiene promoted rest/sleep promoted single patient room provided Problem: ( Delivery) Goal: Successful Parent Role Transition Intervention: Support Parent Role Transition Recent Flowsheet Documentation Taken 02/07/20252305 by Janae Angel RN Supportive Measures: active listening utilized decision-making supported goal-setting facilitated positive reinforcement provided problem-solving facilitated relaxation techniques promoted self-care encouraged verbalization of feelings encouraged Taken 02/07/20251954 by Janae Angel RN Supportive Measures: active listening utilized decision-making supported goal-setting facilitated positive reinforcement provided problem-solving facilitated relaxation techniques promoted self-care encouraged verbalization of feelings encouraged Goal: Effective Bowel Elimination Intervention: Enhance Bowel Motility and Elimination Recent Flowsheet Documentation Taken 02/07/20252305 by Janae Angel RN Bowel Motility Enhancement: ambulation promoted fluid intake encouraged Bowel Elimination Promotion: adequate fluid intake promoted ambulation promoted Taken 02/07/20251954 by Janae Angel RN Bowel Motility Enhancement: ambulation promoted fluid intake encouraged Bowel Elimination Promotion: adequate fluid intake promoted ambulation promoted Goal: Optimal Pain Control and Function Intervention: Prevent or Manage Pain Recent Flowsheet Documentation Taken 02/07/20252305 by Janae Angel RN Perineal Care: perineal hygiene encouraged perineal spray bottle/warm water use encouraged Taken 02/07/20251954 by Janae Angel RN Perineal Care: perineal hygiene encouraged perineal spray bottle/warm water use encouraged Taken 02/07/20251923 by Janae Angel RN Pain Management Interventions: cold applied medication (see MAR) Goal: Effective Urinary Elimination Intervention: Monitor and Manage Urinary Retention Recent Flowsheet Documentation Taken 02/07/20252305 by Janae Angel RN Urinary Elimination Promotion: frequent voiding encouraged Taken 02/07/20251954 by Janae Angel RN Urinary Elimination Promotion: frequent voiding encouraged Goal: Effective Oxygenation and Ventilation Intervention: Optimize Oxygenation and Ventilation Recent Flowsheet Documentation Taken 02/07/20252305 by Janae Angel RN Head of Bed (HOB) Positioning: HOB at 20 degrees Taken 02/07/20251954 by Janae Angel RN Head of Bed (HOB) Positioning: HOB at 45 degrees * Plan of Care - Destiny Scott RN - 02/07/2025 5:54 PM CDT Vitally WDL. Fundus firm, midline, and 1cm below umbilicus. Scant lochia rubra. Surgical incision open to air and approximated with no drainage. Voiding spontaneously and ambulating independently. Pain adequately controlled with scheduled medications. Rash on lower abdomen and back, improving with Benadryl and Hydrocortisone cream. independently q2-3hr. S/o at bedside, supportive. Positive bonding and attachment with observed, attentive to cues. Problem: Adult Inpatient Plan of Care Goal: Plan of Care Review Description: The Plan of Care Review/Shift note should be completed every shift. The Outcome Evaluation is a brief statement about your assessment that the patient is improving, declining, or no change. This information will be displayed automatically on your shift note. 02/07/20251546 by Destiny Scott RN Outcome: Progressing Flowsheets (Taken 02/07/2025 1547) Plan of Care Reviewed With: patient spouse Overall Patient Progress: improving 02/07/2025 1436 by Destiny Scott RN Outcome: Progressing Flowsheets (Taken 02/07/2025 143) Plan of Care Reviewed With: patient spouse Overall Patient Progress: improving Goal: Patient-Specific Goal (Individualized) Description: You can add care plan individualizations to a care plan. Examples of Individualizationmight be: Parent requests to be called daily at 9am for status, I have a hard time hearing out of my right ear, or Do not touch me to wake me up as it startles me. 02/07/2025 1547 by Destiny Scott RN Outcome: Progressing 02/07/2025 143 by Destiny Scott RN Outcome: Progressing Goal: Absence of Hospital-Acquired Illness or Injury 02/07/2025 154 by Destiny Scott RN Outcome: Progressing 02/07/20251435 by Destiny Scott RN Outcome: Progressing Intervention: Prevent Skin Injury Recent Flowsheet Documentation Taken 02/07/2025925 by Destiny Scott RN Body Position: position changed independently Intervention: Prevent Infection Recent Flowsheet Documentation Taken 02/07/2025925 by Destiny Scott RN Infection Prevention: hand hygiene promoted rest/sleep promoted single patient room provided Goal: Optimal Comfort and Wellbeing 02/07/2025 154 by Destiny Scott RN Outcome: Progressing 02/07/20251435 by Destiny Scott RN Outcome: Progressing Intervention: Monitor Pain and Promote Comfort Recent Flowsheet Documentation Taken 02/07/2025925 by Destiny Scott RN Pain Management Interventions: shower Intervention: Provide Person-Centered Care Recent Flowsheet Documentation Taken 02/07/2025925 by Destiny Scott RN Trust Relationship/Rapport: care explained choices provided emotional support provided questions answered empathic listening provided questions encouraged reassurance provided thoughts/feelings acknowledged Goal: Readiness for Transition of Care 02/07/20251546 by Destiny Scott RN Outcome: Progressing 02/07/20251435 by Destiny Scott RN Outcome: Progressing Problem: ( Delivery) Goal: Successful Parent Role Transition 02/07/2025 154 by Destiny Scott RN Outcome: Progressing 02/07/2025 1436 by Destiny Scott RN Outcome: Progressing Intervention: Support Parent Role Transition Recent Flowsheet Documentation Taken 02/07/2025 09 by Destiny Scott RN Supportive Measures: active listening utilized decision-making supported goal-setting facilitated positive reinforcement provided problem-solving facilitated relaxation techniques promoted self-care encouraged verbalization of feelings encouraged Parent-Child Attachment Promotion: caring behavior modeled cue recognition promoted [id number] positioning promoted interaction encouraged parent/caregiver presence encouraged participation in care promoted positive reinforcement provided rooming-in promoted [id number] contact encouraged strengths emphasized Goal: Hemostasis 02/07/2025 1547 by Destiny Scott RN Outcome: Progressing 02/07/2025 1436 by Destiny Scott RN Outcome: Progressing Goal: Effective Bowel Elimination 02/07/2025 1547 by Destiny Scott RN Outcome: Progressing 02/07/2025 1436 by Destiny Scott RN Outcome: Progressing Goal: Fluid and Electrolyte Balance 02/07/2025 1547 by Destiny Scott RN Outcome: Progressing 02/07/2025 1436 by Destiny Scott RN Outcome: Progressing Goal: Absence of Infection Signs and Symptoms 02/07/2025 1547 by Destiny Scott RN Outcome: Progressing 02/07/2025 1436 by Destiny Scott RN Outcome: Progressing Goal: Anesthesia/Sedation Recovery 02/07/2025 1547 by Destiny Scott RN Outcome: Progressing 02/07/2025 1436 by Destiny Scott RN Outcome: Progressing Goal: Optimal Pain Control and Function 02/07/2025 1547 by Destiny Scott RN Outcome: Progressing 02/07/2025 1436 by Destiny Scott RN Outcome: Progressing Intervention: Prevent or Manage Pain Recent Flowsheet Documentation Taken 02/07/2025 09 by Destiny Scott RN Pain Management Interventions: shower Goal: Nausea and Vomiting Relief 02/07/2025 1547 by Destiny Scott RN Outcome: Progressing 02/07/2025 1436 by Destiny Scott RN Outcome: Progressing Goal: Effective Urinary Elimination 02/07/2025 1547 by Destiny Scott RN Outcome: Progressing 02/07/2025 1436 by Destiny Scott RN Outcome: Progressing Goal: Effective Oxygenation and Ventilation 02/07/2025 1547 by Destiny Scott RN Outcome: Progressing 02/07/2025 1436 by Destiny Scott RN Outcome: Progressing Goal Outcome Evaluation: Plan of Care Reviewed With: patient, spouse Overall Patient Progress: improvingOverall Patient Progress: improving * Note - Lucy Danielson RN - 02/07/2025 10:40 AM CDT Visit: was STS when lyric writer entered the room. Infant was able to latch in both to cradle hold as well as the football hold Infant latched and nursed best on the R side this feeding Flanged lips, wide open mouth. Rhythmic suck pattern noted and swallows heard. Mother has pump at home. Her sister is an [employer] nurse and has been also helping with and is a resource for her at home. Mami has PCOS and endometriosis. She is aware that this diagnosis may affect her milk supply but that it is difficult to know this early on. She does have colostrum with hand expression. Mami has to start back to work between 4-6 weeks. Discussed starting to pump as soon as she is at home after feedings to help increase her milk supply and build up her volume for when she has to exclusively pump. Reviewed the new baby book with her . Questions answered and encouragement given. Encouraged her to call for assistance as needed. * Provider Notification - Janae Angel RN - 02/07/2025 5:34 AM CDT 02/07/25 0530 Provider Notification Provider Name/Title Dr. Umaña Method of Notification Electronic Page Request Evaluate-Remote Notification Reason Medication Request Pt requesting hydrocortisone cream for the rash on her abdomen/lower back (from tape/betadine). put in order for hydrocortisone cream 1% QID. * Plan of Care - Janae Angel RN - 02/07/2025 5:25 AM CDT Vital signs stable. checks WDL. C/s dressing CDI, no signs of infection noted in surrounding tissue. Pt is up ad hiren, voiding w/o difficulties. Pt is independent in self cares. Pt is every 2-3 hrs, tolerating well. Pain well controlled with Tylenol and Ibuprofen. Pt stated increased comfort after each medication. Nubain given 1x for itching from abdominal rash. Pt is attentive to all cues and cares. Positive bonding and frequent holding observed. FOB at bedside,supportive of pt. Goal Outcome Evaluation: Plan of Care Reviewed With: patient, spouse Overall Patient Progress: improvingOverall Patient Progress: improving Problem: Adult Inpatient Plan of Care Goal: Plan of Care Review Description: The Plan of Care Review/Shift note should be completed every shift. The Outcome Evaluation is a brief statement about your assessment that the patient is improving, declining, or no change. This information will be displayed automatically on your shift note. Outcome: Progressing Flowsheets (Taken 02/07/2025 0103) Plan of Care Reviewed With: patient spouse Overall Patient Progress: improving Goal: Absence of Hospital-Acquired Illness or Injury Intervention: Prevent Skin Injury Recent Flowsheet Documentation Taken 02/06/20252315 by Janae Angel RN Body Position: position changed independently Taken 02/06/20252030 by Janae Angel RN Body Position: position changed independently Intervention: Prevent Infection Recent Flowsheet Documentation Taken 02/06/20252315 by Janae Angel RN Infection Prevention: hand hygiene promoted rest/sleep promoted single patient room provided Taken 02/06/20252030 by Janae Angel RN Infection Prevention: hand hygiene promoted rest/sleep promoted single patient room provided Goal: Optimal Comfort and Wellbeing Intervention: Monitor Pain and Promote Comfort Recent Flowsheet Documentation Taken 02/06/20252315 by Janae Angel RN Pain Management Interventions: medication (see MAR) cold applied Taken 02/06/20252030 by Janae Angel RN Pain Management Interventions: cold applied Intervention: Provide Person-Centered Care Recent Flowsheet Documentation Taken 02/06/20252315 by Janae Angel RN Trust Relationship/Rapport: care explained choices provided emotional support provided questions answered empathic listening provided questions encouraged reassurance provided thoughts/feelings acknowledged Taken 02/06/20252030 by Janae Angel RN Trust Relationship/Rapport: care explained choices provided emotional support provided questions answered empathic listening provided questions encouraged reassurance provided thoughts/feelings acknowledged Problem: Labor Goal: Stable Wellbeing Intervention: Promote and Monitor Wellbeing Recent Flowsheet Documentation Taken 02/06/20252315 by Janae Angel RN Body Position: position changed independently Taken 02/06/20252030 by Janae Angel RN Body Position: position changed independently Goal: Absence of Infection Signs and Symptoms Intervention: Prevent or Manage Infection Recent Flowsheet Documentation Taken 02/06/20252315 by Janae Angel RN Infection Prevention: hand hygiene promoted rest/sleep promoted single patient room provided Taken 02/06/20252030 by Janae Angel RN Infection Prevention: hand hygiene promoted rest/sleep promoted single patient room provided Problem: ( Delivery) Goal: Successful Parent Role Transition Intervention: Support Parent Role Transition Recent Flowsheet Documentation Taken 02/06/20252315 by Janae Angel RN Supportive Measures: active listening utilized decision-making supported goal-setting facilitated positive reinforcement provided problem-solving facilitated relaxation techniques promoted self-care encouraged verbalization of feelings encouraged Taken 02/06/20252030 by Janae Angel RN Supportive Measures: active listening utilized decision-making supported goal-setting facilitated positive reinforcement provided problem-solving facilitated relaxation techniques promoted self-care encouraged verbalization of feelings encouraged Goal: Effective Bowel Elimination Intervention: Enhance Bowel Motility and Elimination Recent Flowsheet Documentation Taken 02/06/20252315 by Janae Angel RN Bowel Motility Enhancement: ambulation promoted fluid intake encouraged Bowel Elimination Promotion: adequate fluid intake promoted ambulation promoted Taken 02/06/20252030 by Janae Angel RN Bowel Motility Enhancement: ambulation promoted fluid intake encouraged Bowel Elimination Promotion: adequate fluid intake promoted ambulation promoted Goal: Optimal Pain Control and Function Intervention: Prevent or Manage Pain Recent Flowsheet Documentation Taken 02/06/20252315 by Janae Angel RN Pain Management Interventions: medication (see MAR) cold applied Perineal Care: perineal hygiene encouraged perineal spray bottle/warm water use encouraged Taken 02/06/20252030 by Janae Angel RN Pain Management Interventions: cold applied Perineal Care: perineal hygiene encouraged perineal spray bottle/warm water use encouraged Goal: Effective Urinary Elimination Intervention: Monitor and Manage Urinary Retention Recent Flowsheet Documentation Taken 02/06/20252315 by Janae Angel RN Urinary Elimination Promotion: frequent voiding encouraged Taken 02/06/20252030 by Janae Angel RN Urinary Elimination Promotion: frequent voiding encouraged Goal: Effective Oxygenation and Ventilation Intervention: Optimize Oxygenation and Ventilation Recent Flowsheet Documentation Taken 02/06/20252315 by Janae Angel RN Head of Bed (HOB) Positioning: HOB at 45 degrees Taken 02/06/20252030 by Janae Angel RN Head of Bed (HOB) Positioning: HOB at 15 degrees * Provider Notification - Annalise Ellis RN - 02/06/2025 6:50 PM CDT 02/06/251832 Provider Notification Provider Name/Title Dr Umaña Method of Notification Electronic Page Request Evaluate-Remote Notification Reason Medication Request MD paged at patients request for medication to help with itching. Patient has a small raised rash on their abdomen near their stretch joiner. Cleaned abdomen removing betadine however the itching remains. The area looks less irritated now. MD will place orders for Nubain and Benadryl. * Plan of Care - Annalise Ellis RN - 02/06/2025 6:41 PM CDT Goal Outcome Evaluation: Patient abdominal checks and vital signs WDL this shift. Pain well controlled with tylenol and toradol. Tolerating regular diet well. Voiding without difficulty and ambulating independently. Abdominal rash present near umbilicus. Feels itchy. Per patient washing the abdomen helped some with itching however patient requesting something for itching. MD updated awaiting response. Problem: Adult Inpatient Plan of Care Goal: Plan of Care Review Description: The Plan of Care Review/Shift note should be completed every shift. The Outcome Evaluation is a brief statement about your assessment that the patient is improving, declining, or no change. This information will be displayed automatically on your shift note. Outcome: Progressing Flowsheets (Taken 02/06/2025 1841) Outcome Evaluation: Plan of Care Reviewed With: patient spouse Overall Patient Progress: improving Goal: Patient-Specific Goal (Individualized) Description: You can add care plan individualizations to a care plan. Examples of Individualizationmight be: Parent requests to be called daily at 9am for status, I have a hard time hearing out of my right ear, or Do not touch me to wake me up as it startles me. Outcome: Progressing Goal: Absence of Hospital-Acquired Illness or Injury Outcome: Progressing Goal: Optimal Comfort and Wellbeing Outcome: Progressing Intervention: Provide Person-Centered Care Recent Flowsheet Documentation Taken 02/06/2025 1615 by Annalise Ellis RN Trust Relationship/Rapport: care explained choices provided questions answered questions encouraged reassurance provided thoughts/feelings acknowledged Goal: Readiness for Transition of Care Outcome: Progressing Problem: ( Delivery) Goal: Successful Parent Role Transition Outcome: Progressing Goal: Hemostasis Outcome: Progressing Goal: Effective Bowel Elimination Outcome: Progressing Goal: Fluid and Electrolyte Balance Outcome: Progressing Goal: Absence of Infection Signs and Symptoms Outcome: Progressing Goal: Anesthesia/Sedation Recovery Outcome: Progressing Goal: Optimal Pain Control and Function Outcome: Progressing Goal: Nausea and Vomiting Relief Outcome: Progressing Goal: Effective Urinary Elimination Outcome: Progressing Goal: Effective Oxygenation and Ventilation Outcome: Progressing * Note - Kassi Gaston RN - 02/06/2025 5:18 PM CDT This note was copied from a baby's chart. visit; Berny is first baby for Mami. Mami and primary RN report well. Mami reports her sister is helpful with support as she is OB nurse and was helping after delivery. Discussed benefits of STS and first 24 hour feeding behaviors. Mami states Everardo rivera did some cluster feeds last night and mentioned talking to Peds MD about pacifier use. Reviewed risks of pacifier use and suggested having assess latch. Also discussed benefits of hand expression prior to latch and utilizing breast compressions during feed as needed. Has been q2-3 hours and with cues. Discussed when to expect milk transitioning. Per Mami's report has a history of PCOS- discussed how it can potentially impact milk supply and if having delayed milk or low supply to check in with outpatient as it can be individualized on its impact of supply. States she will call for latch assessment this evening or tomorrow. All questions answered. Update: Mami called out for as Berny starting to root- states had large spit up. Brought STS to left breast in cradle hold. Suggested cross cradle to start and then switching to cradleafter achieving deep latch. Also reviewed football hold. Education provided on deep latch techniques- Berny gagging at nipple and refusing to open mouth. Suggested STS and trying again. Reviewed hand expressing techniques- colostrum drops put to mouth. Reinforced first 24 hour feedingbehaviors. All questions answered. * Plan of Care - Liseth De Santiago RN - 02/06/2025 2:22 PM CDT Goal Outcome Evaluation: Plan of Care Reviewed With: patient Overall Patient Progress: improvingOverall Patient Progress: improving Outcome Evaluation: Patient stable. Up ad hiren in room and walking in hallway. Denies difficulty voiding. She has been missing the collection hat when she voids, but states she feels like she is emptying her bladder when she voids. Pain controlled with use of scheduled medications. Dressing to incision is clean dry and intact. Tolerating regular diet without nausea. Problem: Adult Inpatient Plan of Care Goal: Plan of Care Review Outcome: Progressing Flowsheets (Taken 02/06/2025 1419) Outcome Evaluation: Patient stable. Up ad hiren in room and walking in hallway. Denies difficulty voiding. She has been missing the collection hat when she voids, but states she feels like she is emptying her bladder when she voids. Pain controlled with use of scheduled medications. Dressing to incision is clean dry and intact. Tolerating regular diet without nausea. Plan of Care Reviewed With: patient Overall Patient Progress: improving Goal: Patient-Specific Goal (Individualized) Outcome: Progressing Goal: Absence of Hospital-Acquired Illness or Injury Outcome: Progressing Intervention: Prevent Skin Injury Recent Flowsheet Documentation Taken 02/06/2025843 by Liseth De Santiago RN Body Position: position changed independently Goal: Optimal Comfort and Wellbeing Outcome: Progressing Intervention: Monitor Pain and Promote Comfort Recent Flowsheet Documentation Taken 02/06/20251204 by Liseth De Santiago RN Pain Management Interventions: medication (see MAR) Taken 02/06/2025843 by Liseth De Santiago RN Pain Management Interventions: rest Intervention: Provide Person-Centered Care Recent Flowsheet Documentation Taken 02/06/2025843 by Liseth De Santiago RN Trust Relationship/Rapport: questions answered questions encouraged care explained Goal: Readiness for Transition of Care Outcome: Progressing Problem: ( Delivery) Goal: Successful Parent Role Transition Outcome: Progressing Goal: Hemostasis Outcome: Progressing Goal: Effective Bowel Elimination Outcome: Progressing Goal: Fluid and Electrolyte Balance Outcome: Progressing Goal: Absence of Infection Signs and Symptoms Outcome: Progressing Goal: Anesthesia/Sedation Recovery Outcome: Progressing Goal: Optimal Pain Control and Function Outcome: Progressing Intervention: Prevent or Manage Pain Recent Flowsheet Documentation Taken 02/06/20251204 by Liseth De Santiago RN Pain Management Interventions: medication (see MAR) Taken 02/06/2025843 by Liseth De Santiago RN Pain Management Interventions: rest Goal: Nausea and Vomiting Relief Outcome: Progressing Goal: Effective Urinary Elimination Outcome: Progressing Goal: Effective Oxygenation and Ventilation Outcome: Progressing * Plan of Care - Claire Cosme RN - 02/06/2025 6:41 AM CDT Goal Outcome Evaluation: Plan of Care Reviewed With: patient Overall Patient Progress: improvingOverall Patient Progress: improving Patient's vital signs stable, fundal checks and bleeding within normal limits. Came over from laborwith a large amount of moist, sanguinous drainage under her clear, tegaderm dressing. Labor RN reinforced dressing with a foam pressure dressing. Patient got up and walked to the bathroom this morning with stand by assist, doherty catheter taken out at 0630 and is due to void by 1030 this morning. She is good to walk to the bathroom by herself, but also told here to call if she wants assistance foranother time. baby girl every 2-3 hours and on demand. at bedside, supportiveof patient and baby. Problem: Adult Inpatient Plan of Care Goal: Plan of Care Review Description: The Plan of Care Review/Shift note should be completed every shift. The Outcome Evaluation is a brief statement about your assessment that the patient is improving, declining, or no change. This information will be displayed automatically on your shift note. Outcome: Progressing Flowsheets (Taken 02/06/2025 0641) Plan of Care Reviewed With: patient Overall Patient Progress: improving Goal: Absence of Hospital-Acquired Illness or Injury Outcome: Progressing Intervention: Prevent Skin Injury Recent Flowsheet Documentation Taken 02/06/2025329 by Claire Cosme RN Body Position: position changed independently Intervention: Prevent and Manage VTE (Venous Thromboembolism) Risk Recent Flowsheet Documentation Taken 02/06/2025329 by Claire Cosme RN VTE Prevention/Management: SCDs on (sequential compression devices) Intervention: Prevent Infection Recent Flowsheet Documentation Taken 02/06/2025329 by Claire Cosme, RN Infection Prevention: hand hygiene promoted rest/sleep promoted Goal: Optimal Comfort and Wellbeing Outcome: Progressing Intervention: Provide Person-Centered Care Recent Flowsheet Documentation Taken 02/06/2025329 by Claire Cosme RN Trust Relationship/Rapport: care explained choices provided emotional support provided empathic listening provided questions answered questions encouraged reassurance provided thoughts/feelings acknowledged Goal: Readiness for Transition of Care Outcome: Progressing Problem: ( Delivery) Goal: Successful Parent Role Transition Outcome: Progressing Intervention: Support Parent Role Transition Recent Flowsheet Documentation Taken 02/06/2025329 by Claire Cosme, RN Supportive Measures: active listening utilized decision-making supported positive reinforcement provided relaxation techniques promoted self-care encouraged Parent-Child Attachment Promotion: caring behavior modeled cue recognition promoted [id number] positioning promoted interaction encouraged parent/caregiver presence encouraged participation in care promoted positive reinforcement provided rooming-in promoted [id number] contact encouraged strengths emphasized Goal: Hemostasis Outcome: Progressing Goal: Effective Bowel Elimination Outcome: Progressing Goal: Fluid and Electrolyte Balance Outcome: Progressing Goal: Absence of Infection Signs and Symptoms Outcome: Progressing Goal: Anesthesia/Sedation Recovery Outcome: Progressing Goal: Optimal Pain Control and Function Outcome: Progressing Goal: Nausea and Vomiting Relief Outcome: Progressing Goal: Effective Urinary Elimination Outcome: Progressing Goal: Effective Oxygenation and Ventilation Outcome: Progressing Intervention: Optimize Oxygenation and Ventilation Recent Flowsheet Documentation Taken 02/06/2025 0330 by Claire Cosme RN Head of Bed (HOB) Positioning: HOB at 20-30 degrees * Plan of Care - Angela No RN - 02/06/2025 2:25 AM CDT Data: Mami Pete transferred to [facility] via cart at 0225. Baby transferred via parent's arms. Action: Receiving unit notified of transfer: Yes. Patient and family notified of room change. Report given to SUNDAR Myers at 0230. Belongings sent to receiving unit. Accompanied by Registered Nurse. Oriented patient to surroundings. Call light within reach. ID bands double-checked with receiving RN. Response: Patient tolerated transfer and is stable. Patients mobililty level scored using the bedside mobility assistance tool (BMAT). Patient is at a mobility level test number: 2. Mobility equipment used: hovermat. Required assist of 4 staff members. Further use of BMAT scoring not required. * Brief Op Note - Pete Orozco MD - 02/05/2025 11:48 PM CDT [facility] Brief Operative Note Pre-operative diagnosis: 1. Intrauterine at 39 w 1 d, 2. Suspected CPD, 3. Failure to progress Post-operative diagnosis Same as pre-operative diagnosis Procedure: Primary low transverse section, N/A - Abdomen Surgeon: Surgeons and Role: * Pete Orozco MD - Primary Anesthesia: Epidural Estimated Blood Loss: 448 mL from 02/05/2025 10:40 PM to 02/05/2025 11:47 PM Drains: None Specimens: ID Type Source Tests Collected by Time Destination A : Tissue Umbilical Cord SEE PROVIDERS ORDERS Elizabeth Malik RN 02/05/2025 11:28 PM Findings: Viable female infant, vertex presentation, not engaged. Clear fluid. Normal appearing uterus, BL tubes/ovaries. Body cord x 1 Complications: Kiwi vacuum applied for 1 pull, <30 sec, to delivery head.. Implants: * No implants in log * * Op Note - Pete Orozco MD - 02/05/2025 11:11 PM CDT February 05, 2025 OPERATIVE NOTE PRE-OPERATIVE DIAGNOSES: 1. Intrauterine at 39 w 1 d 2. Suspected CPD 3. Failed induction/failure to progress POST-OPERATIVE DIAGNOSES: 1. Intrauterine at 39 w 1 d 2. Suspected CPD 3. Failed induction/failure to progress PROCEDURE: Primary low transverse section SURGEON: Pete Orozco MD ANESTHESIA: Epidural IV FLUIDS: Please see anesthesia MAR ESTIMATED BLOOD LOSS: 448 cc URINE OUTPUT: 100 ml clear COMPLICATIONS: Kiwi vacuum applied <30 sec 1 pull FINDINGS: Viable , vertex presentation/ Head not engaged. Clear amniotic fluid. Apgars 8/9. Weighing 8 lb 2 oz. Normal appearing uterus, fallopian tubes, and ovaries. INDICATIONS: The patient is a who presented to L&D at 39w1d for a scheduled induction of labor for suspected LGA. care was complicated by HEG, as well as suspected LGA (EFW 95%, HC >90%, AC 98%). She underwent Dilapan for cervical ripening, misoprostol x 2 doses, and pitocin per protocol. Despite going up to max pitocin dose, SVE remained unchanged at 1 cm and high station -3 to -4. After discussion of options, including continued pitocin, ripening, or section, pt desired to proceed with section. The risks, benefits, and alternatives of the procedure were discussed with the patient, including bleeding with possible need for blood transfusion, visceral injury including but not limited to damage to the bladder, bowel, and ureters, infection, prolonged hospitalization, and possible reoperation. Pt understood these risks and agreed, all questionswere answered and the consent was signed. DESCRIPTION OF PROCEDURE: The patient was taken to the operating room were epidural anesthesia was administered (unsuccessfulspinal) without difficulty and found to be adequate. She was prepped and draped in the dorsal supine position with a leftward tilt. A doherty catheter was placed. Pfannenstiel skin incision was made with a scalpel and carried down to the level of the fascia with the scalpel. The fascia was scored with the scalpel and the fascial incision was extended laterally with Hall scissors. Using two Eric clamps, the superior aspect of the fascia was grasped and the underlying rectus muscle was dissected off sharply with the Hall scissors. In a similar fashion, the inferior aspect of the fascia was grasped with Eric clamps and the underlying rectus and pyramidalis muscles were dissected off sharply with the Hall scissors. The rectus muscles were in the midline with blunt traction. The peritoneum was entered sharply with Metzenbaum scissors and extended with blunt traction. Intraabdominal survey revealed clear, scant intraperitoneal fluid. A bladder blade was placed to keep the bladder out of the operative field. Using a scalpel, a transverse incision was made in the lower uterine segment and extended with superior and inferior blunt traction. The infant was found to be in vertex presentation, head was not engaged in the pelvis. Amniotomy was performed with clear fluid. The 's head was gently elevated to the level of the uterine incision with special attention paid to avoid using the incision as a fulcrum. With gentle fundal pressure, the head did not deliver easily. A kiwi vacuum was applied and pumped to the green zone.With 1 continuous pull and fundal pressure, the head then delivered after which the vacuum was immediately released (<30 sec). The shoulders then delivered. Cord was noted to be wrapped around R shoulder/arm x 1. The was bulb suctioned, delayed cord clamping was done, and the infant was handed off the the warmer for further assessment. Cord blood was obtained. The placenta then delivered spontaneously, intact, with a 3-vessel cord. The bladder blade was replaced. The inside of the uterus was wiped with moist laparotomy sponges toassure complete removal of placental membranes. The uterine incision was then closed with 0-vicryl suture in a running locked fashion. A second imbricating layer of suture was placed. Inspection of the uterine incision revealed excellent hemostasis. At this time, bilateral tubes and ovaries were inspected to appeared to be within normal limits. Reinspection of the uterine incision revealed excellent hemostasis. The pericolic gutters were cleaned with moist laparotomy sponges. Reinspection of the uterine incision, rectus muscle and fascia revealed excellent hemostasis. The fascia was then closed with 0-vicryl suture in a continuous running fashion. The subcutaneous fat layer was irrigated with warm sterile normal saline, and the Bovie electrocautery device was used to achieve additional hemostasis in this layer. Reinspection revealed excellent hemostasis. The skin was then closed Insorb s taples. All sponge and instrument counts were correct x 2. The patient tolerated the procedure welland was returned to her room in a stable condition. PETE OROZCO MD * Provider Notification - Evita Leon RN - 02/05/2025 10:19 PM CDT 02/05/252215 Provider Notification Provider Name/Title Dr. Orozco Method of Notification At Bedside MD at bedside. Patient currently on 24 of pitocin, rating pain 8/10 with contractions. MD performedSVE, unchanged /-3. MD discussed options with patient, patient wishes to proceed with a . * Provider Notification - Evita Leon RN - 02/05/2025 9:04 PM CDT 02/05/252044 Provider Notification Provider Name/Title Dr. Orozco Method of Notification Electronic Page Patient SVE unchanged from 50/-3. Currently on 22 of pitocin, can be increased to the maximum of 24 now. Patient rates some of her contractions 5/10, but still very comfortable. FHT's category 1. Per MD, increase to maximum of 24, MD will come to bedside to evaluate at 2200. Make patient NPO now. * Provider Notification - Evita Leon RN - 02/05/2025 7:23 PM CDT 02/05/25 1715 Provider Notification Provider Name/Title Dr. Orozco Method of Notification At Bedside MD at bedside to evaluate patient. She is currently on 14 of pitocin, danii regularly but very comfortable, rating pain 1/10 and contractions palpate mild. SVE per MD unchanged, /-3. MD discussed with patient the options of going back to ripening, continuing with pitocin and increasing as able, or c/section. Plan to continue with pitocin until 2029, then recheck SVE. We will reevaluate at that time. Clear liquids only at this time. * Provider Notification - Ale An RN - 02/05/2025 8:48 AM CDT 02/05/25 0848 Provider Notification Provider Name/Title Dr. Orozco Notification Reason Other (Comment) (elmore score is 6, clarified if want to do couple doses of cervical ripening first. Dr stated ok to give x2 doses of po miso, then begin iv pit.) * Provider Notification - Ale An RN - 02/05/2025 8:02 AM CDT 02/05/25 5946 Provider Notification Provider Name/Title scott Method of Notification At Bedside Notification Reason (diltiapan x3 removed, sve /-3 anterior/soft. ok to begin iv pitiocin.) * Plan of Care - Ale An RN - 02/05/2025 8:00 AM CDT 34year old at 39.1 weeks gestation presents to L/D for evaluation of IOL. Patient reports mildcramping last evening. Patient reports good movement, denies leaking of fluid, vaginal bleeding, and regular contractions. EFM and toco explained and applied. Health history obtained, physical assessment completed. Will update and obtain further orders. documented in this encounter Plan of Treatment Not on file documented as of this encounter Procedures Procedure Name Priority Date/Time Associated Diagnosis Comments HEMOGLOBIN Routine 02/06/2025 6:38 AM CDT SECTION 02/05/2025 10:4 0 PM CDT 39 weeks gestation of TYPE AND SCREEN, ADULT STAT 02/05/2025 8:28 AM CDT TREPONEMA ABS W REFLEX TO RPR AND TITER STAT 02/05/2025 8:28 AM CDT ABO/RH TYPE AND SCREEN STAT 02/05/2025 8:28 AM CDT CBC WITH PLATELETS STAT 02/05/2025 8: 28 AM CDT documented in this encounter Results * (ABNORMAL) Hemoglobin (02/06/2025 6:38 AM CDT) Hemoglobin 10.5(L) 11.7 - 15.7 g/dL 02/06/2025 6:58 AM CDT [facility] Blood STRUCTURE OF RIGHT UPPER LIMB / Unknown Venipuncture / Unknown 02/06/2025 6:38 AM CDT 02/06/2025 6:54 AM CDT us Pete Orozco MD LAB - BLOOD ORDERABLES Final Result LABORATORY [facility] [address] [facility] (1st floor, no room number) [place] [address] * Adult Type and Screen (02/05/2025 8:28 AM CDT) ABO/RH(D) A POS 02/05/2025 8:27 AM CDT [facility] BLOOD BANK Antibody Screen Negative Negative 02/05/2025 8:27 AM CDT [facility] BLO[facility] BANK SPECIMEN EXPIRATION DATE [id number] 02/05/2025 8:27 AM CDT [facility] B[facility] Blood BLOOD SPECIMEN / Unknown Venipuncture / Unknown 02/05/2025 8:28 AM CDT 02/05/2025 8:53 AM CDT Pete Orozco MD LAB - BLOOD BANK TEST ORDER Final Result BLOOD BANK [address] [place] [address] * Treponema Abs w Reflex to RPR and Titer (02/05/2025 8:28 AM CDT) Treponema Antibody Total Nonreactive Nonreactive 02/05/2025 1:19 PM CDT [facility] DO Blood BLOOD SPECIMEN / Unknown Venipuncture / Unknown 02/05/2025 8:28 AM CDT 02/05/2025 8:49 AM CDT Pete Orozco MD LAB - BLOOD ORDERABLES Final Result [facility] [address] [facility] [address], Room [address] * CBC with platelets (02/05/2025 8:28 AM CDT) WBC Count 10.6 4.0 - 11.0 10e3/uL 02/05/2025 9:02 AM CDT [facility] RBC Count 4.04 3.80 - 5.20 10e6/uL 02/05/2025 9:02 AM CDT [facility] Hemoglobin 11.7 11.7 - 15.7 g/dL 02/05/2025 9:02 AM CDT [facility] Hematocrit 35.2 35.0 - 47.0 % 02/05/2025 9:02 AM CDT [facility] MCV 87 78 - 100 fL 02/05/2025 9:02 AM CDT [facility] MCH 29.0 26.5 - 33.0 pg 02/05/2025 9:02 AM CDT [facility] MCHC 33.2 31.5 - 36.5 g/dL 02/05/2025 9:02 AM CDT [facility] RDW 14.8 10.0 - 15.0 % 02/05/2025 9:02 AM CDT [facility] Platelet Count 190 150 - 450 10e3/uL 02/05/2025 9:02 AM CDT [facility] Blood BLOOD SPECIMEN / Unknown Venipuncture / Unknown 02/05/2025 8:28 AM CDT 02/05/2025 8:48 AM CDT us Pete Orozco MD LAB - BLOOD ORDERABLES Final Result [facility] [address] Lab (1st floor, no room number) [place] [address], [facility] documented in this encounter Visit Diagnoses Diagnosis S/P primary low transverse - Primary delivery, without mention of indication, unspecified as to episode of care Labor and delivery, indication for care Unspecified indication for care or intervention related to labor and delivery, unspecified as to episode of care Labor and delivery, indication for care Unspecified indication for care or intervention related to labor and delivery, unspecified as to episode of care documented in this encounter Admitting Diagnoses Diagnosis Labor and delivery, indication for care Unspecified indication for care or intervention related to labor and delivery, unspecified as to episode of care documented in this encounter Administered Medications Inactive Administered Medications - up to 3 most recent administrations Medication Order MAR Action Action Date Dose Rate Site acetaminophen (TYLENOL) tablet 975 mg 975 mg, Oral, ONCE, On Tue02/05/25 at 2230, For 1 dose, Maximum acetaminophen dose from all sources = 75 mg/kg/day not to exceed 4 grams/day., Pre-procedure $Given 02/05/2025 10:36 PM CDT 975 mg acetaminophen (TYLENOL) tablet 975 mg 975 mg, Oral, EVERY 6 HOURS, First dose on Tue02/06/25 at 0500, Start 6 hours after pre-op dose (if given) Maximum acetaminophen dose from all sources = 75 mg/kg/day not to exceed 4 grams/day. $Given 02/09/2025 11:48 AM CDT 975 mg $Given 02/09/2025 5:35 AM CDT 975 mg $Given 02/08/2025 11:14 PM CDT 975 mg carboprost (HEMABATE) injection 250 mcg 250 mcg, Intramuscular, EVERY 15 MIN PRN, other, ONLY for uterine atony with significant bleeding POST-DELIVERY, Starting on Tue02/06/25 at 0031, Notify provider IF uterine atony and clarify with provider medication preference. Administer only if directed by provider. Give with caution in patients with asthma, active pulmonary, hepatic, renal or cardiovascular disease. clobetasol (TEMOVATE) 0.05 % ointment Topical, 2 TIMES DAILY, First dose on Tue02/08/25 at 1030, Apply to abdomen $Given 02/09/2025 8:49 AM CDT $Given 02/08/2025 11:14 PM CDT $Given 02/08/2025 10:45 AM CDT dextrose 5% in lactated ringers infusion at 125 mL/hr, Intravenous, CONTINUOUS, Subsequent IV at nurse's discretion. DC IV when tolerating fluids or at nurse's discretion & saline lock., Starting on Tue02/06/25 at 0100, Until 02/09/25 at 1454 $New Bag 02/06/2025 3:34 AM CDT 125 mL/hr diphenhydrAMINE (BENADRYL) capsule 25 mg 25 mg, Oral, EVERY 6 HOURS PRN, itching, Starting on Tue02/06/25 at 1841 $Given 02/09/2025 2:29 AM CDT 25 mg $Given 02/08/2025 4:22 PM CDT 25 mg $Given 02/08/2025 7:32 AM CDT 25 mg diphenhydrAMINE (BENADRYL) injection 25 mg 25 mg, Intravenous, EVERY 6 HOURS PRN, itching, Starting on Tue02/06/25 at 1841 $Given 02/06/2025 7:03 PM CDT 25 mg ePHEDrine injection 5 mg 5 mg, Intravenous, EVERY 3 MIN PRN, if Systolic Blood Pressure less than 100 mmHg, Starting on Tue02/05/25 at 1116, IF patient remains hypotensive (Systolic Blood Pressure less than 100 mmHg) AFTER the 5th dose, notify Anesthesia. Notify Anesthesia PRIOR to administering additional doses., Intrapartum $Given 02/06/2025 12:06 AM CDT 5 mg hydrocortisone (CORTAID) 1 % cream Topical, 4 TIMES DAILY, First dose on Tue02/07/25 at 0700, Apply to rash $Given 02/08/2025 1:02 AM CDT $Given 02/07/2025 7:48 PM CDT $Given 02/07/2025 1:16 PM CDT ibuprofen (ADVIL/MOTRIN) tablet 800 mg 800 mg, Oral, EVERY 6 HOURS, First dose on Tue02/07/25 at 0100, Give with food. $Given 02/09/2025 8:49 AM CDT 800 mg $Given 02/09/2025 2:29 AM CDT 800 mg $Given 02/08/2025 7:30 PM CDT 800 mg ketorolac (TORADOL) injection 15 mg 15 mg, Intravenous, EVERY 6 HOURS, First dose on Tue02/06/25 at 0600, For 3 doses, Give first dose in PACU IF NOT given in OR. Can cause pain on injection. If ordered intravenously (IV) : administer through a running maintenance fluid over 1 minute followed by a flush. If patient complains of pain on injection, may dilute 15-30 mg in 5 mL and push over 1 to 2 minutes. $Given 02/06/2025 7:03 PM CDT 15 mg $Given 02/06/2025 12:05 PM CDT 15 mg $Given 02/06/2025 6:08 AM CDT 15 mg lactated ringers BOLUS 500 mL Intravenous, 500 mL, ONCE PRN, other, IF patient to have epidural or intrathecal narcotics, Starting on Tue02/05/25 at 1116, For 1 dose, Initiate infusion when anesthesia is present for procedure, then IV fluids per labor orders. Nurse may discontinue this order if duplicate., Intrapartum $New Bag 02/06/2025 12:00 AM CDT 500 mLs 999 mL /hr Rate/Dose Change 02/05/2025 10:22 PM CDT lactated ringers infusion at 25-125 mL/hr, Intravenous, CONTINUOUS, Titrate lactated ringers rate to obtain total IV intake of 125 mL/hr. Total IV fluids should not exceed 125 mL/hr without provider order., Intrapartum, Starting on Tue02/05/25 at 0830, Until Tue02/06/25 at 0031 $New Bag 02/05/2025 1:21 PM CDT 50 mL/hr lactated ringers infusion at 25-125 mL/hr, Intravenous, CONTINUOUS PRN, Titrate lactated ringers rate to obtain total IV intake of 125 mL/hr. Total IV fluids should not exceed 125 mL/hr without provider order., Intrapartum, Starting on Tue02/05/25 at 0831, Until Tue02/06/25 at 0031 Rate/Dose Change 02/06/2025 12:41 AM CDT 250 mL/hr loperamide (IMODIUM) capsule 4 mg 4 mg, Oral, ONCE PRN, other, Give with first dose of carboprost (HEMABATE), Starting on Tue02/06/25 at 0031, For 1 dose, May give only after delivery. magnesium hydroxide (MILK OF MAGNESIA) suspension 30 mL 30 mL, Oral, DAILY PRN, constipation, Starting on Tue02/06/25 at 0031, Shake well. Hold for loose stools. $Given 02/07/2025 10:40 AM CDT 30 mLs misoprostol (cervical ripening) (CYTOTEC) quarter-tab 25 mcg 25 mcg, Oral, EVERY 2 HOURS PRN, cervical ripening, Starting on Tue02/05/25 at 0900, For 2 doses, After 24 hours of administration, if ineffective, provider may consider change to agent or mode of cervical ripening Discontinue further dosing if: - Uterine tachysystole - Cervix favorable - Elmore Score 6 or greater - Active vaginal bleeding - Active labor - Abnormal FHR tracing - Adverse maternal reactions (i.e., fever or nausea) Provider: Delay oxytocin induction/augmentation at least 2 hours after the last dose of misoprostol (CYTOTEC)., Intrapartum $Given 02/05/2025 11:08 AM CDT 25 mcg $Given 02/05/2025 9:09 AM CDT 25 mcg misoprostol (CYTOTEC) tablet 400 mcg 400 mcg, Oral, GIVE ONCE PRN AND REPEAT ACCORDING TO INSTRUCTIONS, post- hemorrhage, Starting on Tue02/06/25 at 0031, Administer only if directed by provider. Max administrations: 4 doses misoprostol (CYTOTEC) tablet 800 mcg 800 mcg, Rectal, GIVE ONCE PRN AND REPEAT ACCORDING TO INSTRUCTIONS, post- hemorrhage, Starting on Tue02/06/25 at 0031, Give rectally if unable to take oral without complications. Administer only if directed by provider. Max administrations: 4 doses. nalbuphine (NUBAIN) injection 10 mg 10 mg, Intravenous, EVERY 4 HOURS PRN, itching, Starting on Tue02/06/25 at 1842 $Given 02/07/2025 12:27 AM CDT 10 mg naloxone (NARCAN) injection 0.2 mg 0.2 mg, Intravenous, EVERY 2 MIN PRN, opioid reversal, Starting on Tue02/06/25 at 0035, Administer intravenous route when available and notify provider when administered. For unintended sedation or respiratory depression if all of the below criteria are met: ~ respiratory rate LESS than or EQUAL to 8. ~SaO2 less than 92% and or/end-tidal CO2 is greater than 50. ~ the patient is receiving an opioid, has unintended sedations assessed as RASS (-3), and is currently not on mechanical ventilation. RASS scale moderate (-3) is movement or eye opening to voice but no eye contact. Patient Monitoring Once the patient has demonstrated a response to the naloxone, continue to monitor respiratory rate, depth, oxygen saturation and end-tidal CO2 (if available) every 15 minutes x 2, then every 30 minutes x 2, then every 1 hour x 1 after each naloxone dose. Consider transfer to ICU if patient respiratory parameters have not improved after 4 naloxone doses. naloxone (NARCAN) injection 0.2 mg 0.2 mg, Intramuscular, EVERY 2 MIN PRN, opioid reversal, Starting on Tue02/06/25 at 0035, Administer intramuscular if an intravenous route is not available and notify provider when administered. For unintended sedation or respiratory depression if all of the below criteria are met: ~ respiratory rate LESS than or EQUAL to 8. ~SaO2 less than 92% and or/end-tidal CO2 is greater than 50. ~ the patient is receiving an opioid, has unintended sedations assessed as RASS (-3), and is currently not on mechanical ventilation. RASS scale moderate (-3) is movement or eye opening to voice but no eye contact. Patient Monitoring Once the patient has demonstrated a response to the naloxone, continue to monitor respiratory rate, depth, oxygen saturation and end-tidal CO2 (if available) every 15 minutes x 2, then every 30 minutes x 2, then every 1 hour x 1 after each naloxone dose. Consider transfer to ICU if patient respiratory parameters have not improved after 4 naloxone doses. naloxone (NARCAN) injection 0.4 mg 0.4 mg, Intravenous, EVERY 2 MIN PRN, opioid reversal, Starting on Tue02/06/25 at 0035, Administer intravenous route when available and notify provider when administered. For unintended sedation or respiratory depression if all of the below criteria are met: ~ respiratory rate LESS than or EQUAL to 8. ~ SaO2 less than 92% and or/end-tidal CO2 is greater than 50. ~ the patient is receiving an opioid, has unintended sedation assessed as RASS (-4) or (-5) and patient is currently not on mechanical ventilation. RASS scale (-4) is deep sedation with no response to voice but movement or eye opening to physical stimulation. RASS scale (-5) is unarousable. Patient Monitoring Once the patient has demonstrated a response to the naloxone, continue to monitor respiratory rate, depth, oxygen saturation and end-tidal CO2 (if available) every 15 minutes x 2, then every 30 minutes x 2, then every 1 hour x 1 after each naloxone dose. Consider transfer to ICU if patient respiratory parameters have not improved after 4 naloxone doses. naloxone (NARCAN) injection 0.4 mg 0.4 mg, Intramuscular, EVERY 2 MIN PRN, opioid reversal, Starting on Tue02/06/25 at 0035, Administer intramuscular if an intravenous route is not available and notify provider when administered. For unintended sedation or respiratory depression if all of the below criteria are met: ~ respiratory rate LESS than or EQUAL to 8. ~ SaO2 less than 92% and or/end-tidal CO2 is greater than 50. ~ the patient is receiving an opioid, has unintended sedation assessed as RASS (-4) or (-5) and patient is currently not on mechanical ventilation. RASS scale (-4) is deep sedation with no response to voice but movement or eye opening to physical stimulation. RASS scale (-5) is unarousable. Patient Monitoring Once the patient has demonstrated a response to the naloxone, continue to monitor respiratory rate, depth, oxygen saturation and end-tidal CO2 (if available) every 15 minutes x 2, then every 30 minutes x 2, then every 1 hour x 1 after each naloxone dose. Consider transfer to ICU if patient respiratory parameters have not improved after 4 naloxone doses. ondansetron (ZOFRAN ODT) ODT tab 4 mg 4 mg, Oral, EVERY 6 HOURS PRN, nausea/vomiting - 2nd line, Starting on Tue02/06/25 at 0031, This is Step 2 of OB nausea and vomiting management. Preferred route. Give If nausea not resolved in 30 minutes after giving metoclopramide (REGLAN). If nausea is not resolved in 15 minutes, go to Step 3 (Compazine). With dry hands, peel back foil backing and gently remove tablet. Do not push oral disintegrating tablet through foil backing. Administer immediately on tongue and oral disintegrating tablet dissolves in seconds, then swallow with saliva. Liquid not required. ondansetron (ZOFRAN) injection 4 mg 4 mg, Intravenous, EVERY 6 HOURS PRN, nausea/vomiting - 2nd line, Administer over 2-5 Minutes, Starting on Tue02/05/25 at 0824, This is Step 2 of OB nausea and vomiting management. Use IV if not tolerating oral therapy. Give if nausea not resolved 30 minutes after giving metoclopramide (REGLAN). If nausea is not resolved in 15 minutes, go to Step 3 (Compazine)., Intrapartum $Given 02/05/2025 8:12 PM CDT 4 mg $Given 02/05/2025 1:26 PM CDT 4 mg ondansetron (ZOFRAN) injection 4 mg 4 mg, Intravenous, EVERY 6 HOURS PRN, nausea/vomiting - 2nd line, Administer over 2-5 Minutes, Starting on Tue02/06/25 at 0031, This is Step 2 of OB nausea and vomiting management. Use IV if not tolerating oral therapy. Give if nausea not resolved 30 minutes after giving metoclopramide (REGLAN). If nausea is not resolved in 15 minutes, go to Step 3 (Compazine). oxyCODONE (ROXICODONE) tablet 5 mg 5 mg, Oral, EVERY 4 HOURS PRN, other, moderate to severe breakthrough pain. Hold dose for analgesic side effects., Starting on Tue02/06/25 at 0031, Notify provider to assess for uncontrolled pain or analgesic side effects. Hold while on CALIBRATION TECHNICIAN or with regular IV opioid dosing. Maximum total is 60 mg in 24 hours. $Given 02/08/2025 11:15 PM CDT 5 mg $Given 02/08/2025 10:14 AM CDT 5 mg oxytocin (PITOCIN) 30 units in 500 mL 0.9% NaCl infusion 100-340 mL/hr, Intravenous, CONTINUOUS PRN, After delivery to prevent uterine atony, Starting on Tue02/05/25 at 0824, Give after delivery to prevent uterine atony per provider direction. Administer 340 mL/hr over 30 minutes for a total of 170 mL, then decrease to 100 mL/hr until infusion complete (about 3.5 hours) or per provider direction. Start new bag at delivery. Discontinue or saline lock peripheral IV per nurse discretion., Rate/Dose Change 02/06/2025 12:14 AM CDT 100 mL/hr 100 mL/hr oxytocin (PITOCIN) 30 units in 500 mL 0.9% NaCl infusion 1-24 dmitriy-units/min (1-24 mL/hr), Intravenous, CONTINUOUS, Starting on Tue02/05/25 at 0900, Start infusion at 2 dmitriy-units/min. Increase by 2 dmitriy-units/min every 30 minutes until contractions are 2-3 minutes apart, lasting 45 to 60 seconds in duration to achieve labor progress. Max rate is 24 milliunits/min. Do NOT go higher without a provider order. Follow Management of Uterine Activity Algorithm for dose decreases. If oxytocin (PITOCIN) infusion is discontinued and off for less than 30 minutes, restart infusion at half of previous oxytocin (PITOCIN) rate. If oxytocin (PITOCIN) infusion has been discontinued equal to or greater than 30 minutes, begin at initial dose. IF another cervical ripening medication is ordered wait 60 minutes after oxytocin (PITOCIN) infusion is stopped before administering cervical ripening medication., Intrapartum Rate/Dose Change 02/05/2025 8:50 PM CDT 24 dmitriy-units/min 24 mL/hr Rate/Dose Change 02/05/2025 8:16 PM CDT 22 dmitriy-units/min 22 mL/hr Rate/Dose Change 02/05/2025 7:28 PM CDT 20 dmitriy-units/min 20 mL/hr predniSONE (DELTASONE) tablet 20 mg 20 mg, Oral, DAILY, First dose on Tue02/08/25 at 1030 $Given 02/09/2025 8:49 AM CDT 20 mg $Given 02/08/2025 10:14 AM CDT 20 mg prochlorperazine (COMPAZINE) injection 10 mg 10 mg, Intravenous, EVERY 6 HOURS PRN, nausea/vomiting - 3rd line, Administer over 2 Minutes, Starting on Tue02/06/25 at 0031, This is Step 3 of OB nausea and vomiting management. Use IV if not tolerating oral therapy. Give if nausea not resolved 15 minutes after giving ondansetron (ZOFRAN). If nausea is not resolved in 30 minutes, notify provider. prochlorperazine (COMPAZINE) tablet 10 mg 10 mg, Oral, EVERY 6 HOURS PRN, nausea/vomiting - 3rd line, Starting on Tue02/06/25 at 0031, This is Step 3 of OB nausea and vomiting management. Preferred route. Give if nausea not resolved 15 minutes after giving ondansetron (ZOFRAN). If nausea is not resolved in 30 minutes, notify provider. senna-docusate (SENOKOT-S/PERICOLACE) 8.6-50 MG per tablet 1 tablet 1 tablet, Oral, 2 TIMES DAILY, First dose on Tue02/06/25 at 0100, If no bowel movement in 24 hours, increase to 2 tablets PO. Hold for loose stools. Preferred agent for constipation related to opioids. Hold for loose stools. $Given 02/09/2025 8:49 AM CDT 1 tablet $Given 02/08/2025 11:14 PM CDT 1 tablet $Given 02/06/2025 8:30 AM CDT 1 tablet senna-docusate (SENOKOT-S/PERICOLACE) 8.6-50 MG per tablet 2 tablet 2 tablet, Oral, 2 TIMES DAILY, First dose on Tue02/06/25 at 0100, Hold for loose stools. Preferred agent for constipation related to opioids. Hold for loose stools. $Given 02/07/2025 7:48 PM CDT 2 tablets $Given 02/07/2025 9:32 AM CDT 2 tablets $Given 02/06/2025 11:16 PM CDT 2 tablets simethicone (MYLICON) chewable tablet 80 mg 80 mg, Oral, 4 TIMES DAILY PRN, other, gas, Starting on Tue02/06/25 at 0031, Chew. $Given 02/06/2025 8:30 AM CDT 80 mg $Given 02/06/2025 12:42 AM CDT 80 mg sodium chloride (PF) 0.9% PF flush 3 mL 3 mL, Intracatheter, EVERY 8 HOURS, First dose on Tue02/06/25 at 0100, to lock peripheral IV dormant line $Given 02/06/2025 12:04 PM CDT 3 mLs sodium citrate-citric acid (BICITRA) solution 30 mL 30 mL, Oral, PRE-OP/PRE-PROCEDURE, Starting on Tue02/05/25 at 2225, For 1 dose, For gastric pH neutralization. GIVE WITHIN 45 minutes PRIOR TO SURGICAL PROCEDURE., Pre-procedure $Given 02/05/2025 10:36 PM CDT 30 mLs documented in this encounter Active and Recently Administered Medications Times are shown in CDT. Scheduled Medication Order 02/07/2025 02/08/2025 02/09/2025 acetaminophen (TYLENOL) tablet 975 mg 975 mg, Oral, EVERY 6 HOURS, First dose on Tue02/06/25 at 0500, Start 6 hours after pre-op dose (if given) Maximum acetaminophen dose from all sources = 75 mg/kg/day not to exceed 4 grams/day. 0512 ($Given - Provider: Janae Angel RN)1041 ($Given - Provider: Destiny Scott RN)1719 ($Given - Provider: Destiny Scott RN)2304 ($Given - Provider: Janae Angel RN) 0506 ($Given - Provider: Janae Angel RN)1045 ($Given - Provider: Mary Varela RN)1622 ($Given - Provider: Mary Varela RN)2314 ($Given - Provider: Trisha Ladd RN) 0535 ($Given - Provider: Trisha Ladd, RN)1148 ($Given - Provider: Emperatriz Carver RN) clobetasol (TEMOVATE) 0.05 % ointment Topical, 2 TIMES DAILY, First dose on Tue02/08/25 at 1030, Apply to abdomen 1045 ($Given - Provider: Mary Varela RN)2314 ($Given - Provider: Trisha Ladd RN) 0849 ($Given - Provider: Emperatriz Carver RN) hydrocortisone (CORTAID) 1 % cream Topical, 4 TIMES DAILY, First dose on Tue02/07/25 at 0700, Apply to rash 0734 ($Given - Provider: Janae Angel RN)1316 ($Given - Provider: Francesca Reagan RN)1948 ($Given - Provider: Janae Angel RN)2200 (Not Given - Provider: Janae Angel RN - Reason: Order parameters not met) 0102 ($Given - Provider: Janae Angel RN)1225 (Not Given - Provider: Mary Varela RN - Reason: Other - Comment: Pt given different itch cream, see MAR)1805 (Not Given - Provider: Mary Varela RN - Reason: Other)2321 (Not Given - Provider: Trisha Ladd RN - Reason: Other - Comment: pt used alternate cream (see MAR)) 0732 (Not Given - Provider: Khushboo Levin RN - Reason: Patient/family refused)1217 (Not Given - Provider: Emperatriz Carver RN - Reason: Patient/family refused) ibuprofen (ADVIL/MOTRIN) tablet 800 mg 800 mg, Oral, EVERY 6 HOURS, First dose on Tue02/07/25 at 0100, Give with food. 0038 ($Given - Provider: Janae Angel RN)0734 ($Given - Provider: Janae Angel RN)1316 ($Given - Provider: Francesca Reagan RN)1924 ($Given - Provider: Janae Angel RN) 0102 ($Given - Provider: Janae Angel RN)0732 ($Given - Provider: Janae Angel RN)1328 ($Given - Provider: Mary Varela RN)1930 ($Given - Provider: Trisha Ladd RN) 0229 ($Given - Provider: Trisha Ladd RN)0849 ($Given - Provider: Emperatriz Carver RN)1300 (Canceled Entry - Provider: Orders Generic Provider - Comment: Automatically canceled at discontinue of medication order) predniSONE (DELTASONE) tablet 20 mg 20 mg, Oral, DAILY, First dose on Tue02/08/25 at 1030 1014 ($Given - Provider: Mary Varela RN) 0849 ($Given - Provider: Emperatriz Carver RN) senna-docusate (SENOKOT-S/PERICOLACE) 8.6-50 MG per tablet 1 tablet(Linked Group 1) 1 tablet, Oral, 2 TIMES DAILY, First dose on Tue02/06/25 at 0100, If no bowel movement in 24 hours, increase to 2 tablets PO. Hold for loose stools. Preferred agent for constipation related to opioids. Hold for loose stools. 0932 (See Alternative - Provider: Destiny Scott RN)1947 (See Alternative - Provider: Janae Angel RN)2051 (See Alternative - Provider: Janae Angel RN) 0957 (Not Given - Provider: Mary Varela RN - Reason: Patient/family refused)2314 ($Given - Provider: Trisha Ladd RN) 0849 ($Given - Provider: Emperatriz Carver RN) senna-docusate (SENOKOT-S/PERICOLACE) 8.6-50 MG per tablet 2 tablet(Linked Group 1) 2 tablet, Oral, 2 TIMES DAILY, First dose on Tue02/06/25 at 0100, Hold for loose stools. Preferred agent for constipation related to opioids. Hold for loose stools. 0932 ($Given - Provider: Destiny Scott RN)1947 ($Given - Provider: Janae Angel RN)2051 (Not Given - Provider: Janae Angel RN - Reason: Other) 0957 (See Alternative - Provider: Mary Varela RN)2314 (See Alternative - Provider: Trisha Ladd RN) 0849 (See Alternative - Provider: Emperatriz Carver, SUNDAR) sodium chloride (PF) 0.9% PF flush 3 mL 3 mL, Intracatheter, EVERY 8 HOURS, First dose on Tue02/06/25 at 0100, to lock peripheral IV dormant line 0045 (Not Given - Provider: Janae Angel RN - Reason: No IV Access)0900 (Canceled Entry - Provider: Destiny Scott RN)1700 (Canceled Entry - Provider: Destiny Scott RN) 0037 (Not Given - Provider: Janae Angel RN - Reason: No IV Access)0957 (Not Given - Provider: Mary Varela RN - Reason: No IV Access)1637 (Not Given - Provider: Mary Varela RN - Reason: No IV Access) 0236 (Not Given - Provider: Tirsha Ladd RN - Reason: No IV Access)1044 (Not Given - Provider: Emperatriz Carver RN - Reason: No IV Access - Comment: pt discharging) Continuous Medication Order 02/07/2025 02/08/2025 02/09/2025 dextrose 5% in lactated ringers infusion at 125 mL/hr, Intravenous, CONTINUOUS, Subsequent IV at nurse's discretion. DC IV when tolerating fluids or at nurse's discretion & saline lock., Starting on Tue02/06/25 at 0100, Until 02/09/25 at 1454 PRN Medication Order 02/07/2025 02/08/2025 02/09/2025 bisacodyl (DULCOLAX) suppository 10 mg 10 mg, Rectal, DAILY PRN, constipation, Starting on Arelis 02/07/25 at 0000, Use IF milk of magnesium not effective. Start POD 2 Hold for loose stools. carboprost (HEMABATE) injection 250 mcg(Linked Group 2) 250 mcg, Intramuscular, EVERY 15 MIN PRN, other, ONLY for uterine atony with significant bleeding POST-DELIVERY, Starting on Tue02/06/25 at 0031, Notify provider IF uterine atony and clarify with provider medication preference. Administer only if directed by provider. Give with caution in patients with asthma, active pulmonary, hepatic, renal or cardiovascular disease. diphenhydrAMINE (BENADRYL) capsule 25 mg(Linked Group 3) 25 mg, Oral, EVERY 6 HOURS PRN, itching, Starting on Tue02/06/25 at 1841 1057 ($Given - Provider: Destiny Scott RN)1721 (Not Given - Provider: Destiny Scott RN - Reason: Patient/family refused - Comment: Pt wants to take closer to bedtime.)1948 ($Given - Provider: Janae Angel RN) 0102 ($Given - Provider: Janae Angel RN)0732 ($Given - Provider: Janae Angel, RN)1622 ($Given - Provider: Mary Varela, RN) 0229 ($Given - Provider: Trisha Ladd, RN) diphenhydrAMINE (BENADRYL) injection 25 mg(Linked Group 3) 25 mg, Intravenous, EVERY 6 HOURS PRN, itching, Starting on Tue02/06/25 at 1841 1057 (See Alternative - Provider: Destiny Scott RN)172 (See Alternative - Provider: Destiny Scott RN)194 (See Alternative - Provider: Janae Angel RN) 0102 (See Alternative - Provider: Janae Angel, SUNDAR)0732 (See Alternative - Provider: Janae Angel, SUNDAR)1622 (See Alternative - Provider: Mary Varela, RN) 022 (See Alternative - Provider: Trisha Ladd, RN) hydrocortisone (Perianal) (ANUSOL-HC) 2.5 % cream Rectal, 3 TIMES DAILY PRN, hemorrhoids, Starting on Tue02/06/25 at 0031, Apply to hemorrhoids. Send only if nurse requests. HYDROmorphone (PF) (DILAUDID) injection 0.5 mg 0.5 mg, Intravenous, EVERY 2 HOURS PRN, severe pain, Starting on Tue02/06/25 at 0031 lidocaine (LMX4) cream Topical, EVERY 1 HOUR PRN, pain, with VAD insertion, Starting on Tue02/06/25 at 0031, Apply at least 30 minutes prior to VAD insertion in divided doses as needed for size of site for insertion. MAX Dose: 2.5 g ( of 5 g tube) Do NOT give if patient has a history of allergy to any local anesthetic or any mark product. Do NOT use both lidocaine intradermal/subcutaneous injection and the lidocaine cream on the same site. lidocaine 1 % 0.1-1 mL 0.1-1 mL, Other, EVERY 1 HOUR PRN, mild pain with VAD insertion, Starting on Tue02/06/25 at 0031, MAX dose 1 mL subcutaneous OR intradermal along the side of the vein in divided doses as needed for VAD insertion. Do NOT give if patient has a history of allergy to any local anesthetic or any mark product. Do NOT use both lidocaine intradermal/subcutaneous injection and the lidocaine cream on the same site. loperamide (IMODIUM) capsule 2 mg 2 mg, Oral, EVERY 2 HOURS PRN, other, after each loose stool, Starting on Tue02/06/25 at 0031, May give only after delivery. For diarrhea occurring after carboprost (HEMABATE) administration ONLY. Maximum 16 mg/day. Do NOT give stool softeners or laxatives until diarrhea is resolved. loperamide (IMODIUM) capsule 4 mg(Linked Group 2) 4 mg, Oral, ONCE PRN, other, Give with first dose of carboprost (HEMABATE), Starting on Tue02/06/25 at 0031, For 1 dose, May give only after delivery. magnesium hydroxide (MILK OF MAGNESIA) suspension 30 mL 30 mL, Oral, DAILY PRN, constipation, Starting on Tue02/06/25 at 0031, Shake well. Hold for loose stools. 1040 ($Given - Provider: Destiny Scott RN) methylergonovine (METHERGINE) injection 200 mcg 200 mcg, Intramuscular, EVERY 2 HOURS PRN, ONLY for uterine atony with significant bleeding POST-DELIVERY, Starting on Tue02/06/25 at 0031, Notify provider IF uterine atony and clarify with provider medication preference. Administer only if directed by provider. Contraindicated if Blood Pressure greater than 140/90, preeclampsia, or hypertension. misoprostol (CYTOTEC) tablet 400 mcg(Linked Group 4) 400 mcg, Oral, GIVE ONCE PRN AND REPEAT ACCORDING TO INSTRUCTIONS, post- hemorrhage, Starting on Tue02/06/25 at 0031, Administer only if directed by provider. Max administrations: 4 doses misoprostol (CYTOTEC) tablet 800 mcg(Linked Group 4) 800 mcg, Rectal, GIVE ONCE PRN AND REPEAT ACCORDING TO INSTRUCTIONS, post- hemorrhage, Starting on Tue02/06/25 at 0031, Give rectally if unable to take oral without complications. Administer only if directed by provider. Max administrations: 4 doses. nalbuphine (NUBAIN) injection 10 mg 10 mg, Intravenous, EVERY 4 HOURS PRN, itching, Starting on Tue02/06/25 at 1842 0027 ($Given - Provider: Janae Angel RN) naloxone (NARCAN) injection 0.2 mg(Linked Group 5) 0.2 mg, Intravenous, EVERY 2 MIN PRN, opioid reversal, Starting on Tue02/06/25 at 0035, Administer intravenous route when available and notify provider when administered. For unintended sedation or respiratory depression if all of the below criteria are met: ~ respiratory rate LESS than or EQUAL to 8. ~SaO2 less than 92% and or/end-tidal CO2 is greater than 50. ~ the patient is receiving an opioid, has unintended sedations assessed as RASS (-3), and is currently not on mechanical ventilation. RASS scale moderate (-3) is movement or eye opening to voice but no eye contact. Patient Monitoring Once the patient has demonstrated a response to the naloxone, continue to monitor respiratory rate, depth, oxygen saturation and end-tidal CO2 (if available) every 15 minutes x 2, then every 30 minutes x 2, then every 1 hour x 1 after each naloxone dose. Consider transfer to ICU if patient respiratory parameters have not improved after 4 naloxone doses. naloxone (NARCAN) injection 0.2 mg(Linked Group 5) 0.2 mg, Intramuscular, EVERY 2 MIN PRN, opioid reversal, Starting on Tue02/06/25 at 0035, Administer intramuscular if an intravenous route is not available and notify provider when administered. For unintended sedation or respiratory depression if all of the below criteria are met: ~ respiratory rate LESS than or EQUAL to 8. ~SaO2 less than 92% and or/end-tidal CO2 is greater than 50. ~ the patient is receiving an opioid, has unintended sedations assessed as RASS (-3), and is currently not on mechanical ventilation. RASS scale moderate (-3) is movement or eye opening to voice but no eye contact. Patient Monitoring Once the patient has demonstrated a response to the naloxone, continue to monitor respiratory rate, depth, oxygen saturation and end-tidal CO2 (if available) every 15 minutes x 2, then every 30 minutes x 2, then every 1 hour x 1 after each naloxone dose. Consider transfer to ICU if patient respiratory parameters have not improved after 4 naloxone doses. naloxone (NARCAN) injection 0.4 mg(Linked Group 5) 0.4 mg, Intravenous, EVERY 2 MIN PRN, opioid reversal, Starting on Tue02/06/25 at 0035, Administer intravenous route when available and notify provider when administered. For unintended sedation or respiratory depression if all of the below criteria are met: ~ respiratory rate LESS than or EQUAL to 8. ~ SaO2 less than 92% and or/end-tidal CO2 is greater than 50. ~ the patient is receiving an opioid, has unintended sedation assessed as RASS (-4) or (-5) and patient is currently not on mechanical ventilation. RASS scale (-4) is deep sedation with no response to voice but movement or eye opening to physical stimulation. RASS scale (-5) is unarousable. Patient Monitoring Once the patient has demonstrated a response to the naloxone, continue to monitor respiratory rate, depth, oxygen saturation and end-tidal CO2 (if available) every 15 minutes x 2, then every 30 minutes x 2, then every 1 hour x 1 after each naloxone dose. Consider transfer to ICU if patient respiratory parameters have not improved after 4 naloxone doses. naloxone (NARCAN) injection 0.4 mg(Linked Group 5) 0.4 mg, Intramuscular, EVERY 2 MIN PRN, opioid reversal, Starting on Tue02/06/25 at 0035, Administer intramuscular if an intravenous route is not available and notify provider when administered. For unintended sedation or respiratory depression if all of the below criteria are met: ~ respiratory rate LESS than or EQUAL to 8. ~ SaO2 less than 92% and or/end-tidal CO2 is greater than 50. ~ the patient is receiving an opioid, has unintended sedation assessed as RASS (-4) or (-5) and patient is currently not on mechanical ventilation. RASS scale (-4) is deep sedation with no response to voice but movement or eye opening to physical stimulation. RASS scale (-5) is unarousable. Patient Monitoring Once the patient has demonstrated a response to the naloxone, continue to monitor respiratory rate, depth, oxygen saturation and end-tidal CO2 (if available) every 15 minutes x 2, then every 30 minutes x 2, then every 1 hour x 1 after each naloxone dose. Consider transfer to ICU if patient respiratory parameters have not improved after 4 naloxone doses. ondansetron (ZOFRAN ODT) ODT tab 4 mg(Linked Group 6) 4 mg, Oral, EVERY 6 HOURS PRN, nausea/vomiting - 2nd line, Starting on Tue02/06/25 at 0031, This is Step 2 of OB nausea and vomiting management. Preferred route. Give If nausea not resolved in 30 minutes after giving metoclopramide (REGLAN). If nausea is not resolved in 15 minutes, go to Step 3 (Compazine). With dry hands, peel back foil backing and gently remove tablet. Do not push oral disintegrating tablet through foil backing. Administer immediately on tongue and oral disintegrating tablet dissolves in seconds, then swallow with saliva. Liquid not required. ondansetron (ZOFRAN) injection 4 mg(Linked Group 6) 4 mg, Intravenous, EVERY 6 HOURS PRN, nausea/vomiting - 2nd line, Administer over 2-5 Minutes, Starting on Tue02/06/25 at 003, This is Step 2 of OB nausea and vomiting management. Use IV if not tolerating oral therapy. Give if nausea not resolved 30 minutes after giving metoclopramide (REGLAN). If nausea is not resolved in 15 minutes, go to Step 3 (Compazine). oxyCODONE (ROXICODONE) tablet 5 mg 5 mg, Oral, EVERY 4 HOURS PRN, other, moderate to severe breakthrough pain. Hold dose for analgesic side effects., Starting on Tue02/06/25 at 003, Notify provider to assess for uncontrolled pain or analgesic side effects. Hold while on CALIBRATION TECHNICIAN or with regular IV opioid dosing. Maximum total is 60 mg in 24 hours. 1014 ($Given - Provider: Mary Varela, RN)2315 ($Given - Provider: Trisha Ladd RN) oxytocin (PITOCIN) 30 units in 500 mL 0.9% NaCl infusion 340 mL/hr, Intravenous, CONTINUOUS PRN, for hemorrhage (PPH) UNTIL bleeding subsided., Starting on Tue02/06/25 at 0031, When bleeding subsides decrease rate to 100 mL/hr. Notify provider immediately when infusion begun. Oxytocin is first line medication for PPH. oxytocin (PITOCIN) injection 10 Units 10 Units, Intramuscular, ONCE PRN, for hemorrhage (PPH), IF no IV access is available., Starting on Tue02/06/25 at 0031, For 1 dose, Notify provider immediately when injection given. Oxytocin is first line medication for PPH. prochlorperazine (COMPAZINE) injection 10 mg(Linked Group 7) 10 mg, Intravenous, EVERY 6 HOURS PRN, nausea/vomiting - 3rd line, Administer over 2 Minutes, Starting on 02/06/25 at 0031, This is Step 3 of OB nausea and vomiting management. Use IV if not tolerating oral therapy. Give if nausea not resolved 15 minutes after giving ondansetron (ZOFRAN). If nausea is not resolved in 30 minutes, notify provider. prochlorperazine (COMPAZINE) tablet 10 mg(Linked Group 7) 10 mg, Oral, EVERY 6 HOURS PRN, nausea/vomiting - 3rd line, Starting on 02/06/25 at 0031, This is Step 3 of OB nausea and vomiting management. Preferred route. Give if nausea not resolved 15 minutes after giving ondansetron (ZOFRAN). If nausea is not resolved in 30 minutes, notify provider. simethicone (MYLICON) chewable tablet 80 mg 80 mg, Oral, 4 TIMES DAILY PRN, other, gas, Starting on Tue02/06/25 at 0031, Chew. sodium chloride (PF) 0.9% PF flush 3 mL 3 mL, Intracatheter, EVERY 1 MIN PRN, line flush, other, to ensure patency or to lock dormant line, Starting on 02/06/25 at 0031 sodium phosphate (FLEET ENEMA) 1 enema 1 enema, Rectal, DAILY PRN, constipation, , Starting on Arelis 02/07/25 at 0000, Use IF bisacodyl not effective. Start POD 2. Hold for loose stools unless being administered as part of a bowel prep regimen prior to a procedure. tranexamic acid 1 g in 100 mL NS IV bag (premix) 1 g, Intravenous, Administer over 10 Minutes, EVERY 30 MIN PRN, Post- hemorrhage (PPH), Starting on 02/06/25 at 0031, For 2 doses, Provider consultation REQUIRED and MUST be administered as soon as the ONSET of bleeding AND within 3 hours of regardless of cause of the PPH (atony OR laceration). IF bleeding continues, a 2nd dose may be administered after 30 minutes. IF concern for DIC (Disseminated Intravascular Coagulation), obtain coagulation studies PRIOR to administration. Contraindications include: history of PE (Pulmonary Emboli), DVT (Deep Vein Thrombosis) and current Subarachnoid hemorrhage and active DIC. Administer only if directed by provider. Each 1 gram to be infused over 10 minutes. Linked Groups Order Group 1: senna-docusate (SENOKOT-S/PERICOLACE) 8.6-50 MG per tablet 1 tabletJump to med 1 tablet, Oral, 2 TIMES DAILY, First dose on Tue02/06/25 at 0100, If no bowel movement in 24 hours, increase to 2 tablets PO. Hold for loose stools. Preferred agent for constipation related to opioids. Hold for loose stools. Or senna-docusate (SENOKOT-S/PERICOLACE) 8.6-50 MG per tablet 2 tabletJump to med 2 tablet, Oral, 2 TIMES DAILY, First dose on Tue02/06/25 at 0100, Hold for loose stools. Preferred agent for constipation related to opioids. Hold for loose stools. Group 2: carboprost (HEMABATE) injection 250 mcgJump to med 250 mcg, Intramuscular, EVERY 15 MIN PRN, other, ONLY for uterine atony with significant bleeding POST-DELIVERY, Starting on Tue02/06/25 at 0031, Notify provider IF uterine atony and clarify with provider medication preference. Administer only if directed by provider. Give with caution in patients with asthma, active pulmonary, hepatic, renal or cardiovascular disease. And loperamide (IMODIUM) capsule 4 mgJump to med 4 mg, Oral, ONCE PRN, other, Give with first dose of carboprost (HEMABATE), Starting on Tue02/06/25 at 0031, For 1 dose, May give only after delivery. Group 3: diphenhydrAMINE (BENADRYL) capsule 25 mgJump to med 25 mg, Oral, EVERY 6 HOURS PRN, itching, Starting on Tue02/06/25 at 1841 Or diphenhydrAMINE (BENADRYL) injection 25 mgJump to med 25 mg, Intravenous, EVERY 6 HOURS PRN, itching, Starting on Tue02/06/25 at 1841 Group 4: misoprostol (CYTOTEC) tablet 400 mcgJump to med 400 mcg, Oral, GIVE ONCE PRN AND REPEAT ACCORDING TO INSTRUCTIONS, post- hemorrhage, Starting on Tue02/06/25 at 0031, Administer only if directed by provider. Max administrations: 4 doses Or misoprostol (CYTOTEC) tablet 800 mcgJump to med 800 mcg, Rectal, GIVE ONCE PRN AND REPEAT ACCORDING TO INSTRUCTIONS, post- hemorrhage, Starting on Tue02/06/25 at 0031, Give rectally if unable to take oral without complications. Administer only if directed by provider. Max administrations: 4 doses. Group 5: naloxone (NARCAN) injection 0.2 mgJump to med 0.2 mg, Intravenous, EVERY 2 MIN PRN, opioid reversal, Starting on Tue02/06/25 at 0035, Administer intravenous route when available and notify provider when administered. For unintended sedation or respiratory depression if all of the below criteria are met: ~ respiratory rate LESS than or EQUAL to 8. ~SaO2 less than 92% and or/end-tidal CO2 is greater than 50. ~ the patient is receiving an opioid, has unintended sedations assessed as RASS (-3), and is currently not on mechanical ventilation. RASS scale moderate (-3) is movement or eye opening to voice but no eye contact. Patient Monitoring Once the patient has demonstrated a response to the naloxone, continue to monitor respiratory rate, depth, oxygen saturation and end-tidal CO2 (if available) every 15 minutes x 2, then every 30 minutes x 2, then every 1 hour x 1 after each naloxone dose. Consider transfer to ICU if patient respiratory parameters have not improved after 4 naloxone doses. Or naloxone (NARCAN) injection 0.4 mgJump to med 0.4 mg, Intravenous, EVERY 2 MIN PRN, opioid reversal, Starting on Tue02/06/25 at 0035, Administer intravenous route when available and notify provider when administered. For unintended sedation or respiratory depression if all of the below criteria are met: ~ respiratory rate LESS than or EQUAL to 8. ~ SaO2 less than 92% and or/end-tidal CO2 is greater than 50. ~ the patient is receiving an opioid, has unintended sedation assessed as RASS (-4) or (-5) and patient is currently not on mechanical ventilation. RASS scale (-4) is deep sedation with no response to voice but movement or eye opening to physical stimulation. RASS scale (-5) is unarousable. Patient Monitoring Once the patient has demonstrated a response to the naloxone, continue to monitor respiratory rate, depth, oxygen saturation and end-tidal CO2 (if available) every 15 minutes x 2, then every 30 minutes x 2, then every 1 hour x 1 after each naloxone dose. Consider transfer to ICU if patient respiratory parameters have not improved after 4 naloxone doses. Or naloxone (NARCAN) injection 0.2 mgJump to med 0.2 mg, Intramuscular, EVERY 2 MIN PRN, opioid reversal, Starting on Tue02/06/25 at 0035, Administer intramuscular if an intravenous route is not available and notify provider when administered. For unintended sedation or respiratory depression if all of the below criteria are met: ~ respiratory rate LESS than or EQUAL to 8. ~SaO2 less than 92% and or/end-tidal CO2 is greater than 50. ~ the patient is receiving an opioid, has unintended sedations assessed as RASS (-3), and is currently not on mechanical ventilation. RASS scale moderate (-3) is movement or eye opening to voice but no eye contact. Patient Monitoring Once the patient has demonstrated a response to the naloxone, continue to monitor respiratory rate, depth, oxygen saturation and end-tidal CO2 (if available) every 15 minutes x 2, then every 30 minutes x 2, then every 1 hour x 1 after each naloxone dose. Consider transfer to ICU if patient respiratory parameters have not improved after 4 naloxone doses. Or naloxone (NARCAN) injection 0.4 mgJump to med 0.4 mg, Intramuscular, EVERY 2 MIN PRN, opioid reversal, Starting on Tue02/06/25 at 0035, Administer intramuscular if an intravenous route is not available and notify provider when administered. For unintended sedation or respiratory depression if all of the below criteria are met: ~ respiratory rate LESS than or EQUAL to 8. ~ SaO2 less than 92% and or/end-tidal CO2 is greater than 50. ~ the patient is receiving an opioid, has unintended sedation assessed as RASS (-4) or (-5) and patient is currently not on mechanical ventilation. RASS scale (-4) is deep sedation with no response to voice but movement or eye opening to physical stimulation. RASS scale (-5) is unarousable. Patient Monitoring Once the patient has demonstrated a response to the naloxone, continue to monitor respiratory rate, depth, oxygen saturation and end-tidal CO2 (if available) every 15 minutes x 2, then every 30 minutes x 2, then every 1 hour x 1 after each naloxone dose. Consider transfer to ICU if patient respiratory parameters have not improved after 4 naloxone doses. Group 6: ondansetron (ZOFRAN ODT) ODT tab 4 mgJump to med 4 mg, Oral, EVERY 6 HOURS PRN, nausea/vomiting - 2nd line, Starting on Tue02/06/25 at 0031, This is Step 2 of OB nausea and vomiting management. Preferred route. Give If nausea not resolved in 30 minutes after giving metoclopramide (REGLAN). If nausea is not resolved in 15 minutes, go to Step 3 (Compazine). With dry hands, peel back foil backing and gently remove tablet. Do not push oral disintegrating tablet through foil backing. Administer immediately on tongue and oral disintegrating tablet dissolves in seconds, then swallow with saliva. Liquid not required. Or ondansetron (ZOFRAN) injection 4 mgJump to med 4 mg, Intravenous, EVERY 6 HOURS PRN, nausea/vomiting - 2nd line, Administer over 2-5 Minutes, Starting on Tue02/06/25 at 0031, This is Step 2 of OB nausea and vomiting management. Use IV if not tolerating oral therapy. Give if nausea not resolved 30 minutes after giving metoclopramide (REGLAN). If nausea is not resolved in 15 minutes, go to Step 3 (Compazine). Group 7: prochlorperazine (COMPAZINE) tablet 10 mgJump to med 10 mg, Oral, EVERY 6 HOURS PRN, nausea/vomiting - 3rd line, Starting on Tue02/06/25 at 0031, This is Step 3 of OB nausea and vomiting management. Preferred route. Give if nausea not resolved 15 minutes after giving ondansetron (ZOFRAN). If nausea is not resolved in 30 minutes, notify provider. Or prochlorperazine (COMPAZINE) injection 10 mgJump to med 10 mg, Intravenous, EVERY 6 HOURS PRN, nausea/vomiting - 3rd line, Administer over 2 Minutes, Starting on Tue02/06/25 at 0031, This is Step 3 of OB nausea and vomiting management. Use IV if not tolerating oral therapy. Give if nausea not resolved 15 minutes after giving ondansetron (ZOFRAN). If nausea is not resolved in 30 minutes, notify provider. 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
--- OUTSIDE RECORDS SUMMARY | 2025-02-22 00:20 | XMS_ITS | Clinical Summary ---
Author Organization [facility] Address [address] [place] [address] Care Team Providers Care Egg Grader Name Role Phone No Ref-Primary, Physician Primary Care Provider Anitha Anaya MD Unavailable [phone] Allergies Active Allergy Reactions Criticality Noted Date Comments Chlorhexidine Rash Low 02/08/2025 Metoclopramide Shortness Of Breath, Itching,Difficulty breathing High 06/26/2024 Medications oxyCODONE (ROXICODONE) 5 MG tabletIndicatio ns:Labor and delivery, indication for care Take 1 tablet (5 mg) by mouth every 4 hours as needed for moderate pain. 15 tablet 02/10/20 25 Active predniSONE (DELTASONE) 20 MG tabletIndicatio ns:Labor and delivery, indication for care Take 1 tablet (20 mg) by mouth daily. 3 tablet 02/11/20 25 Active clobetasol (TEMOVATE) 0.05 % external ointmentIndicat ions:Labor and delivery, indication for care Apply topically 2 times daily. 453 g 02/10/20 25 Active Pyridoxine HCl (B-6 PO) 025 Discontinu ed(Stop at Discharge) doxylamine (UNISOM) 25 MG TABS tablet Take 25 mg by mouth at bedtime 025 Discontinu ed(Stop at Discharge) ondansetron (ZOFRAN) 4 MG tabletIndicatio ns:Hyperemesis gravidarum Take 1-2 tablets (4-8 mg) by mouth every 6 hours as needed for nausea 30 tablet 06/27/20 24 025 Discontinu ed(Stop at Discharge) promethazine (PHENERGAN) 25 MG suppositoryIndi cations:Hyperem esis gravidarum Place 1 suppository (25 mg) rectally every 6 hours as needed for nausea 10 suppository 06/27/20 24 025 Discontinu ed(Stop at Discharge) prochlorperazin e (COMPAZINE) 25 MG suppositoryIndi cations:Nausea and/or Vomiting in Place 12.5 mg rectally every 12 hours as needed for nausea. 025 Discontinu ed(Stop at Discharge) famotidine (PEPCID) 20 MG tabletIndicatio ns:Gastroesopha geal Reflux Disease Take 20 mg by mouth 2 times daily. 025 Discontinu ed(Stop at Discharge) magnesium oxide 200 MG TABS Take 400 mg by mouth daily. 11/27/19 25 025 Discontinu ed(Stop at Discharge) aspirin (ASA) 81 MG chewable tablet Take 81 mg by mouth 2 times daily. 025 Discontinu ed(Stop at Discharge) ondansetron (ZOFRAN ODT) 4 MG ODT tabIndications: Hyperemesis gravidarum Take 1 tablet (4 mg) by mouth every 8 hours as needed for nausea. 30 tablet 1 01/17/20 25 025 Discontinu ed(Stop at Discharge) cephALEXin (KEFLEX) 500 MG capsuleIndicati ons:Infection of peripherally inserted central catheter (PICC), initial encounter Take 1 capsule (500 mg) by mouth 4 times daily for 7 days. 28 capsule 01/17/20 25 025 Active Problems Problem Noted Date Diagnosed Date Labor and delivery, indication for care 02/06/20 25 Indication for care in labor or delivery 025 Encounter for triage in patient 024 Hyperemesis gravidarum 06/26/2024 Encounters Date Type Department Care Team Description 02/05/2025 10:45 PM CDT - 02/06/2025 12:15 AM CDT [facility] [address] [place] [phone] Pete Orozco MD section 02/05/2025 10:38 PM CDT Anesthesia Event [facility] [address] [place] [address] Katlyn Frost MD Schlimmer, James William, MD 02/05/2025 7:39 AM CDT - 02/09/2025 12:38 PM CDT Hospital Encounter [facility] [address] [place] [address] Pete Orozco MD S/P primary low transverse (Primary Dx); Labor and delivery, indication for care Discharge Disposition: Home or Self Care 01/31/2025 Travel 01/18/2025 Home Infusion [facility] [address] [place] [phone] Esther Valenzuela [facility] Hyperemesis gravidarum (Primary Dx) 01/17/2025 5:13 PM FLIGHT COMMUNICATIONS SPECIALIST - 01/17/2025 7:01 PM FLIGHT COMMUNICATIONS SPECIALIST Hospital Encounter [facility] [address] [place] [address] Geri Alanis MD Hyperemesis gravidarum (Primary Dx); Infection of peripherally inserted central catheter (PICC), initial encounter Discharge Disposition: Home or Self Care 01/16/2025 11:45 AM FLIGHT COMMUNICATIONS SPECIALIST Home Care Visit [facility] [address] [place] [phone] Juany Manuel, RN 01/09/2025 2:00 PM FLIGHT COMMUNICATIONS SPECIALIST Home Care Visit [facility] [address] [place] [phone] Juany Manuel, RN 01/03/2025 Home Infusion [facility] [address] [place] [phone] Gwen Salomon, PharmD 01/02/2025 2:00 PM FLIGHT COMMUNICATIONS SPECIALIST Home Care Visit [facility] [address] [place] [phone] Ashley London, RN 12/28/2024 Home Infusion [facility] [address] [place] [phone] Bladimir Claudia, [facility] 12/26/2024 12:00 PM FLIGHT COMMUNICATIONS SPECIALIST Home Care Visit [facility] [address] [place] [phone] Juany Manuel, RN 12/21/2024 Home Infusion [facility] [address] [place] [phone] Lavinia Saldivar, [facility] 12/19/2024 1:30 PM FLIGHT COMMUNICATIONS SPECIALIST Home Care Visit [facility] [address] [place] [phone] Juany Manuel, RN 12/14/2024 Home Infusion [facility] [address] [place] [phone] Radha Jimenez, PharmD 12/12/2024 12:00 PM FLIGHT COMMUNICATIONS SPECIALIST Home Care Visit [facility] [address] [place] [phone] Juany Manuel, SUNDAR 12/07/2024 1:30 PM FLIGHT COMMUNICATIONS SPECIALIST Home Care Visit [facility] [address] [place] [phone] Valente Schuler, RN 12/05/2024 12:00 PM FLIGHT COMMUNICATIONS SPECIALIST Home Care Visit [facility] [address] [place] [phone] Juany Manuel, RN 11/27/2024 4:49 PM FLIGHT COMMUNICATIONS SPECIALIST - 11/27/2024 8:31 PM FLIGHT COMMUNICATIONS SPECIALIST Hospital [facility] [address] [place] [address] Pete Orozco MD Discharge Disposition: Home or Self Care 11/27/2024 10:00 AM FLIGHT COMMUNICATIONS SPECIALIST Home Care Visit [facility] [address] [place] [phone] Juany Manuel RN from Last 3 Months Social History Tobacco Use Types Packs/Day Years Used Date Smoking Tobacco: Never Smokeless Tobacco: Never Tobacco Cessation:Counseling Given: Not Answered Alcohol Use Standard Drinks/Week Comments Not Currently 0 (1 standard drink = 0.6 oz pur e alcohol) Beaufort Depression Scale Answer Date Recorded Last EPDS [...] Answer Date Recorded Do you have housing? (Lloyd milan is defined as stable permanent housing and does not include staying ouside in a car, in a tent, in an abandoned building, in an overnight mcfp, or couch-surfing.) Yes 02/05/2025 Are you worried [...] on file Legal Sex Female 10:15 AM FLIGHT COMMUNICATIONS SPECIALIST Gender Identity Not on file Sexual Orientation [...] Mass Index 33.12 02/05/2025 8:05 AM CDT Plan of Treatment Health Maintenance Due Date Last Done Comments ADVANCE CARE PLANNING 1992 ANNUAL REVIEW OF HM ORDERS 1992 HIV SCREENING 2007 HEPATITIS C SCREENING 2010 HEPATITIS B IMMUNIZATION (1 of 3 - 19+ 3-dose series) 2011 YEARLY PREVENTIVE VISIT 11/06/2022 11/06/2021 PAP 11/06/2024 11/06/2021, 11/06/2021 PHQ-2 (once per calendar year) 2024 COVID-19 Vaccine (4 - Pfizer risk 2023- season) 2025 08/28/2024, 03/28/2021, 03/07/2021 DTAP/TDAP/TD IMMUNIZATION (2 - Td or Tdap) 11/20/2034 11/20/2024 ZOSTER IMMUNIZATION (1 of 2) 2042 INFLUENZA VACCINE Completed 08/28/2024 HPV IMMUNIZATION Aged Out No longer e ligible based on patient's age to complete this topic MENINGITIS IMMUNIZATION Aged Out No l onger eligible based on patient's age to complete this topic Pneumococcal Vaccine: Pediatrics (0 to 5 Years) and At-Risk Patients (6 to 49 Years) Aged Out No longer eligible b ased on patient's age to complete this topic Procedures Procedure Name Priority Date/Time Associated Diagnosis Comments HEMOGLOBIN Routine 02/06/2025 6:38 AM CDT SECTION 02/05/2025 10:4 0 PM CDT 39 weeks gestation of ANE EPIDURAL BLOCK Routine 02/05/2025 10 :31 PM CDT ABO/RH TYPE AND SCREEN STAT 8:28 AM CDT TYPE AND SCREEN, ADULT STAT 8:28 AM CDT TREPONEMA ABS W REFLEX TO RPR AND TITER STAT 02/05/2025 8:28 AM CDT CBC WITH PLATELETS STAT 02/05/2025 8: 28 AM CDT NON-STRESS TEST - HIM SCAN 01/17/2025 12:00 AM FLIGHT COMMUNICATIONS SPECIALIST NON-STRESS TEST - HIM SCAN 01/17/2025 12:00 AM FLIGHT COMMUNICATIONS SPECIALIST COMPREHENSIVE METABOLIC PANEL STAT 11/27/2024 6:28 PM FLIGHT COMMUNICATIONS SPECIALIST CBC WITH PLATELETS STAT 11/27/2024 6: 28 PM FLIGHT COMMUNICATIONS SPECIALIST PROTEIN RANDOM URINE STAT 11/27/2024 5:32 PM FLIGHT COMMUNICATIONS SPECIALIST from Last 3 Months Results * (ABNORMAL) Hemoglobin (02/06/2025 6:38 AM CDT) Hemoglobin 10.5(L) 11.7 - 15.7 g/dL 02/06/2025 6:58 AM CDT [facility] Blood STRUCTURE OF RIGHT UPPER LIMB / Unknown Venipuncture / Unknown 02/06/2025 6:38 AM CDT 02/06/2025 6:54 AM CDT us Pete Orozco MD LAB - BLOOD ORDERABLES Final Result [facility] [address] [facility] (1st floor, no room number) [place] [phone], [facility] * FV AN EPIDURAL DUMMY PERFORMABLE (02/05/2025 10:31 PM CDT) Narrative Yfn MILKA Diego DIRECTOR CONSTRUCTION SERVICES - 02/05/2025 10:31 PM CDT Johnathon Coulter APRN DIRECTOR CONSTRUCTION SERVICES 02/05/2025 11:23 PM Epidural catheter Procedure Note [...] air ANDREW at 8 cm. Needle Type: ToArchsyy needle Needle Gauge: 17. Needle Length (Inches): [...] placed, ANDREW @ 8cm, no complications FOR [facility] ([facility]) ONLY: Pain Team Contact information: please page the Pain Team Via [employer]. Search Pain. During daytime hours, please page the attending first. At night please page the resident first. us Katlyn Frost MD OR ANESTHESIA Final Result * Adult Type and Screen (02/05/2025 8:28 AM CDT) ABO/RH(D) A POS 02/05/2025 8:27 AM CDT RH BLOOD BANK Antibody Screen Negative Negative 02/05/2025 8:27 AM CDT RH BLOOD BANK SPECIMEN EXPIRATION DATE [id number] 02/05/2025 8:27 AM CDT BLOOD BANK Blood BLOOD SPECIMEN / Unknown Venipuncture / Unknown 02/05/2025 8:28 AM CDT 02/05/2025 8:53 AM CDT Pete Orozco MD LAB - BLOOD BANK TEST ORDER Final Result BLOOD BANK [address] [place] [address], [facility] * Treponema Abs w Reflex to RPR and Titer (02/05/2025 8:28 AM CDT) Treponema Antibody Total Nonreactive Nonreactive 02/05/2025 1:19 PM CDT [facility] SPECIAL[facility] CORE/PROT/EN DO Blood BLOOD SPECIMEN / Unknown Venipuncture / Unknown 02/05/2025 8:28 AM CDT 02/05/2025 8:49 AM CDT Pete Orozco MD LAB - BLOOD ORDERABLES Final Result [facility] SPECIALTY CORE/PROT/ENDO [facility] Specialty Core/Prot/Endo [address] [facility], Room [address] [place] [address] * CBC with platelets (02/05/2025 8:28 AM CDT) Only the most recent of2 resultswithin the time period is included. WBC Count 10.6 4.0 - 11.0 10e3/uL [...] 8:28 AM CDT 02/05/2025 8:48 AM CDT Pete Orozco MD LAB - BLOOD ORDERABLES Final Result [facility] LAB[facility]AT[facility] [address] [facility] Lab (1st floor, no room number) [place] [address] * Non-Stress Test - HIM Scan (01/17/2025 12:00 AM FLIGHT COMMUNICATIONS SPECIALIST) 01/17/2025 Provider Outside PROCEDURES Final Result * Non-Stress Test - HIM Scan (01/17/2025 12:00 AM FLIGHT COMMUNICATIONS SPECIALIST) 01/17/2025 us Provider Outside PROCEDURES Final Result * (ABNORMAL) Comprehensive metabolic panel (11/27/2024 6:28 PM FLIGHT COMMUNICATIONS SPECIALIST) Sodium 135 135 - 145 mmol/L 11/27/2024 7:10 PM FLIGHT COMMUNICATIONS SPECIALIST LABORATORY Potassium 4.2 3.4 - 5.3 mmol/L 11/27/2024 7:10 PM FLIGHT COMMUNICATIONS SPECIALIST LABORATORY Carbon Dioxide (CO2) 19(L) 22 - 29 mmol/L 11/27/2024 7:10 PM FLIGHT COMMUNICATIONS SPECIALIST [facility] LAB[facility] Anion Gap 13 7 - 15 mmol/L 11/27/2024 7:10 PM [facility] Urea Nitrogen 4.0(L) 6.0 - 20.0 mg/dL 11/27/2024 7:10 PM [facility] Creatinine 0.60 0.51 - 0.95 mg/dL 11/27/2024 7:10 PM [facility] GFR Estimate >90 >60 mL/min/1.7 3m2 11/27/2024 7:10 PM [facility] Comment:eGFR calculated usin 2020 CKD-EPI equation. Calcium 8.8 8.8 - 10.4 mg/dL 11/27/2024 7:10 PM [facility] Comment:Reference intervals for this test were updated on 06/05/2024 to reflect our healthy population more accurately. There may be differences in the flagging of prior results with similar values performed with this method. Those prior results can be interpreted in the context of the updated reference intervals. Chloride 103 98 - 107 mmol/L 11/27/2024 7:10 PM [facility] Glucose 84 70 - 99 mg/dL 11/27/2024 7:10 PM [facility] Alkaline Phosphatase 97 40 - 150 U/L 11/27/2024 7:10 PM [facility] AST 25 0 - 45 U/L 11/27/2024 7:10 PM [facility] ALT 11 0 - 50 U/L 11/27/2024 7:10 PM [facility] Protein Total 6.5 6.4 - 8.3 g/dL 11/27/2024 7:10 PM [facility] Albumin 3.4(L) 3.5 - 5.2 g/dL 11/27/2024 7:10 PM [facility] Bilirubin Total 0.2 <=1.2 mg/dL 11/27/2024 7:10 PM [facility] Blood STRUCTURE OF RIGHT UPPER LIMB / Unknown Venipuncture / Unknown 11/27/2024 6:28 PM FLIGHT COMMUNICATIONS SPECIALIST 11/27/2024 6:37 PM [facility] us Anitha Anaya MD LAB - BLOOD ORDERABLES Final Re sult LABORATORY [facility] [address] Lab (1st floor, no room number) [place] [address] * Protein random urine (11/27/2024 5:32 PM FLIGHT COMMUNICATIONS SPECIALIST) Total Protein Urine mg/dL <6.0 mg/dL 11/27/2024 6:25 PM FLIGHT COMMUNICATIONS SPECIALIST LABORATORY Comment:The reference ranges have not been established in urine protein. The results should be integrated into the clinical context for interpretation. Total Protein Urine mg/mg Creat 11/27/2024 6:25 PM FLIGHT COMMUNICATIONS SPECIALIST LABORATORY Comment:Unable to calculate, urine creatinine or protein is outside the detectable limits. Creatinine Urine mg/dL 50.0 mg/dL 11/27/2024 6:25 PM FLIGHT COMMUNICATIONS SPECIALIST LABORATORY Comment:The reference ranges have not been established in urine creatinine. The results should be integrated into the clinical context for interpretation. Urine MID-STREAM URINE SPECIMEN / Unknown Non-blood Collection / Unknown 11/27/2024 5:32 PM FLIGHT COMMUNICATIONS SPECIALIST 11/27/2024 5:51 PM FLIGHT COMMUNICATIONS SPECIALIST us Anitha Anaya MD LAB - URINE ORDERABLES Final Re sult [facility] [address] Lab (1st floor, no room number) [place] [address] from Last 3 Months Insurance [employer] [facility] [employer] Advance Directives For more information, please contact: [phone] * Full Code (Latest Code Status on File) Date Activated Date Inactivated Comments 02/06/2025 12:31 AM 02/09/2025 2:59 PM All basic a nd advanced life-sustaining interventions are performed as appropriate Question Answer Comments Code status determined by: Other (please tarik t) * Full Code Date Activated Date Inactivated Comments 02/05/2025 8:26 AM 02/06/2025 12:31 AM All basic a nd advanced life-sustaining interventions are performed as appropriate Question Answer Comments Code status determined by: Discussion with patie nt/ legal decision maker * Full Code Date Activated Date Inactivated Comments 06/26/2024 1:46 PM 06/27/2024 12:14 PM All basic and advanced life-sustaining interventions are performed as appropriate Question Answer Comments Code status determined by: Discussion with patie nt/ legal decision maker Care Teams Egg Grader Relationship Specialty Start Date End Date No Ref-Primary, Physician PCP - General 12/14/23 Anitha Anaya MD [facility] [address] [place] [address] Physician flatcar whacker 09/09/24
--- OUTSIDE RECORDS SUMMARY | 2025-02-22 00:20 | XMS_ITS ---
Author Organization [facility] Address [address] [place] [address] Care Team Providers Care Gear Straightener Name Role Phone No Ref-Primary, Physician Primary Care Provider Anitha Anaya MD Unavailable [phone] Multivitamin Status:Closed (Closed) Start date:07/26/2024 Enrollment date:07/26/2024 End date:01/21/2025 Close reason:Therapy Completed Linked medications:Multiple Vitamin (Discontinued) Related program episode:Home Infusion (Closed) Continued Care and Services Coordination
--- OUTSIDE RECORDS SUMMARY | 2025-02-22 00:20 | XMS_ITS ---
Author Organization [facility] Address [address] [place] [address] Care Team Providers Care Sap Abap Programmer Name Role Phone No Ref-Primary, Physician Primary Care Provider Anitha Anaya MD Unavailable [phone] Transitional Care Management Status:Enrolled (Active) Start date:02/11/2025 Enrollment date:02/12/2025 Continued Care and Services Coordination
--- OUTSIDE RECORDS SUMMARY | 2025-02-22 00:20 | XMS_ITS | CCD ---
Author Name Interface, [id number] Address [address] [facility] [address] [place] [address] [facility] Address [address] [facility] [address] [place] [address] Care Team Providers Care Underground Utility Locator Name Role Phone Arielle Blanco Unavailable Allergies and Adverse Reactions Care Plan Reason for Visit Encounters Immunizations Diagnostic Results Medications Administered Medications Patient Education Problems Procedures Social History Vital Signs
--- OUTSIDE RECORDS SUMMARY | 2025-02-22 00:21 | XMS_ITS | Encounter Summary ---
Author Organization [facility] Address [address] [place] [address] Care Team Providers Care Engine Head Repairer Name Role Phone No Ref-Primary, Physician Primary Care Provider Juany Manuel RN Unavailable Unavailable Giovanna Andersen MD Unavailable Anitha Anaya MD Unavailable [phone] Reason for Visit * Home Infusion Authorization (Routine) - Authorized Specialty Diagnoses / Procedures Referred By Contml t Referred To Contact Home Infusion and Injection Services [facility] [address] [place] [phone] Phone: tel: fax: Referral ID Status Reason Start Date Expiration Date V isits Requested Visits Authorized [id number] Authorized 07/26/2024 07/26/2025 [phone] Encounter Details Date Type Department Care Team (Late st Contact Info) Description 01/16/2025 11:45 AM RN CASE MANAGEMENT Home Care Visit [facility] [address] [place] [phone] Juany Manuel, RN Social History Tobacco Use Types Packs/Day Years Used Date Smoking Tobacco: Never Smokeless Tobacco: Never Adolescent Education Answer Date Record ed Getting School Help Needed Not on file 08/13 Comments Yes Sex and Gender Information Value Date Recorded Sex Assigned at Not on file Legal Sex Female 10:15 AM RN CASE MANAGEMENT Gender Identity Not on file Sexual Orientation Not on file documented as of this encounter Last Filed Vital Signs Vital Sign Reading Time Taken Comments Blood Pressure 100/60 01/16/2025 12:07 PM RN CASE MANAGEMENT Pulse 93 01/16/2025 12:07 PM RN CASE MANAGEMENT Temperature 36.2 C (97.1 F) 01/16/2025 12:07 PM RN CASE MANAGEMENT Respiratory Rate 20 01/16/2025 12:07 PM RN CASE MANAGEMENT Oxygen Saturation 100% 01/16/2025 12:07 PM RN CASE MANAGEMENT Inhaled Oxygen Concentration - - Weight 103.4 kg (228 lb) 01/16/2025 12:07 PM RN CASE MANAGEMENT Height - - Body Mass Index 32.71 10/22/2024 3:46 PM RN CASE MANAGEMENT documented in this encounter Progress Notes * Juany Manuel RN - 01/16/2025 12:12 PM CST Nursing Visit Note: Nurse visit today for CLC for Mami Pete. Program Management Manager present during visit today: Not Applicable. Intravenous Access: PICC. Note: VSS. Patient has her follow up today with her OB. Stated she is going to talk to her OB about her PIC Line, and see if they want her to get it looked at due to the drainage. Denied fever, chills. States she has increased pain generalized, and pressure as she feel. She is getting closer to labor. all questions answered by RN. Saline administered: 10 ml (ml) Supply Check: Does the patient have all the supplies they need for the next visit? Yes Next visit plan: 1 week 01/23/25 for CLC Juany Manuel RN 01/16/2025 CASE MANAGEMENT documented in this encounter Plan of Treatment Not on file documented as of this encounter Visit Diagnoses Not on filedocumented in this encounter Care Teams Engine Head Repairer Relationship Specialty Start Date End Date No Ref-Primary, Physician PCP - General 12/14/23 Juany Manuel RN Home Infusion Software Sales Consultant 09/06/2401/21/25 Giovanna Andersen MD [address] [facility] [address] [place] [address] Home Infusion Following Provider alterations manager 09/09/24 01/21/25 Anitha Anaya MD [facility] [address] [address] Physician alterations manager 09/09/24 documented as of this encounter
--- OUTSIDE RECORDS SUMMARY | 2025-02-22 00:21 | XMS_ITS | Clinical Summary ---
Author Organization [facility] Address [address] [place] [id number] Care Team Providers Care Hydraulic Lift Operator Name Role Phone Family, Rafaela Wells - Prior Valle Primary Care Provider Unavailable Allergies Active Allergy Reactions Criticality Noted Date Comments Metoclopramide Hcl Shortness Of Breath 12/20/19 22 Medications albuterol HFA (PRO-AIR; VENTOLIN; PROVENTIL) 90 mcg/actuation inhaler 2 Active sertraline (ZOLOFT) 25 mg tablet sertraline 25 mg tablet TAKE TWO TABLETS BY MOUTH EVERY DAY Active promethazine-co deine (PHENERGAN WITH CODEINE) 6.25-10 mg/5 mL syrup promethazine 6.25 mg-codeine 10 mg/5 mL syrup Active benzonatate (TESSALON) 200 mg capsule 2 Active gabapentin (NEURONTIN) 100 mg capsuleIndicati ons:Neck pain Take 1 Capsule (100 mg) by mouth three times daily. 20 Capsule 4 Active diazePAM (VALIUM) 2 mg tabletIndicatio ns:Neck pain Take 1 Tablet (2 mg) by mouth every 4 hours if needed for Muscle Spasm. 16 Tablet 4 Active methylPREDNISol one (MEDROL DOSEPAK) 4 mg tabletIndicatio ns:Neck pain Take by mouth as instructed per packaging. 21 Tablet 4 Active Active Problems No known active problems Social History Tobacco Use Types Packs/Day Years Used Date Smoking Tobacco: Never Smokeless Tobacco: Never Alcohol Use Standard Drinks/Week Comments Yes 0 (1 standard drink = 0.6 oz pur e alcohol) occ wine Social Connections Answer Date Recorded Frequency of Communication with Friends and Fami ly Not on file 12/22/2022 Financial Resource Strain Answer Date R ecorded Difficulty of Paying Living Expenses 3 12/20/2021 Difficulty of Paying Living Expenses Not on file 12/20/2021 Food Insecurity Answer Date Recorded Worried About Running Out of Food in the Last Ye ar 1 12/20/2021 Transportation Needs Answer Date Record ed Lack of Transportation (Medical) 1 12/20/2021 Housing Stability Answer Date Recorded Unable to Pay for Housing in the Last Year 1 12/20/2021 Interpersonal Safety Answer Date Record ed Are you being hit, kicked, p ushed or yelled at (see row info)? No 12/17/2023 Interpersonal Safety Abuse 12 - 18 Not on file 12/17/2023 Interpersonal Safety Ambulatory Vulnerability No t on file 12/17/2023 Comments Unknown Sex and Gender Information Value Date Recorded Sex Assigned at Not on file Legal Sex Female 12:26 PM REUSE TECHNICIAN Gender Identity Not on file Sexual Orientation Not on file Obstetrics History Last Filed Vital Signs Vital Sign Reading Time Taken Comments Blood Pressure 118/69 12/18/2023 12:23 AM REUSE TECHNICIAN Pulse 79 12/18/2023 12:38 AM REUSE TECHNICIAN Temperature 36.2 C (97.2 F) 12/18/2023 12:38 AM REUSE TECHNICIAN Respiratory Rate 16 12/17/2023 6:14 PM REUSE TECHNICIAN Oxygen Saturation 100% 12/17/2023 6:14 PM REUSE TECHNICIAN Inhaled Oxygen Concentration - - Weight 83.5 kg (184 lb) 12/17/2023 8:46 PM REUSE TECHNICIAN Height 177.8 cm (5' 10) 12/17/2023 8:46 PM REUSE TECHNICIAN Body Mass Index 26.4 12/17/2023 8:46 PM REUSE TECHNICIAN Plan of Treatment Health Maintenance Due Date Last Done Comments Tdap 2003 Depression screening for age 12+ 2004 HIV for age 15-65 2007 BMI (ht and wt on same day) for age 18+ 2010 Hepatitis C screening for ag e 18-79 2010 Tetanus booster 2012 Pap test for age 21-65 2013 COVID-19 vaccine series ( season) 2024 03/28/2021, 03/07/2021 Influenza Vaccine (Season Ended) 2025 Pneumococcal series for age 6-49 Aged Out No longer eligible b ased on patient's age to complete this topic Insurance [facility] Care Teams Hydraulic Lift Operator Relationship Specialty Start Date End Date Rafaela Mehta - Prior Valle PCP - General Family Practice 12/17/23
--- OUTSIDE RECORDS SUMMARY | 2025-02-22 00:21 | XMS_ITS | Encounter Summary ---
Author Organization [facility] Address [address] [place] [address] Care Team Providers Care Financial Analysis Advisor Name Role Phone No Ref-Primary, Physician Primary Care Provider Juany Manuel RN Unavailable Unavailable Giovanna Andersen MD Unavailable Anitha Anaya MD Unavailable [phone] Reason for Visit * Home Infusion Authorization (Routine) - Authorized Specialty Diagnoses / Procedures Referred By Contml t Referred To Contact [facility] [address] [place] [id number] Phone: tel: fax: Referral ID Status Reason Start Date Expiration Date V isits Requested Visits Authorized [id number] Authorized 07/26/2024 07/26/2025 [phone] Encounter Details Date Type Department Care Team (Late st Contact Info) Description 01/09/2025 2:00 PM BUCKLE SEWER Home Care Visit [facility] [address] [place] [id number] Juany Manuel, RN Social History Tobacco Use Types Packs/Day Years Used Date Smoking Tobacco: Never Smokeless Tobacco: Never Adolescent Education Answer Date Record ed Getting School Help Needed Not on file 08/13 Comments Yes Sex and Gender Information Value Date Recorded Sex Assigned at Not on file Legal Sex Female 10:15 AM BUCKLE SEWER Gender Identity Not on file Sexual Orientation Not on file documented as of this encounter Last Filed Vital Signs Vital Sign Reading Time Taken Comments Blood Pressure 104/60 01/09/2025 2:22 PM BUCKLE SEWER Pulse 92 01/09/2025 2:22 PM BUCKLE SEWER Temperature 35.9 C (96.6 F) 01/09/2025 2:22 PM BUCKLE SEWER Respiratory Rate 20 01/09/2025 2:22 PM BUCKLE SEWER Oxygen Saturation 99% 01/09/2025 2:22 PM BUCKLE SEWER Inhaled Oxygen Concentration - - Weight 103.4 kg (228 lb) 01/09/2025 2:22 PM BUCKLE SEWER Height - - Body Mass Index 32.71 10/22/2024 3:46 PM BUCKLE SEWER documented in this encounter Progress Notes * Juany Manuel, RN - 01/09/2025 2:37 PM CST Nursing Visit Note: Nurse visit today for CLC for Mami Pete. Corporate Technical Recruiter present during visit today: Not Applicable. Intravenous Access: PICC. Note: VSS, patient has follow up appointment with provider next Tuesday afternoon. All questions answered by RN. Saline administered: 10 ml (ml) Supply Check: Does the patient have all the supplies they need for the next visit? Yes Next visit plan: 1 week 01/16/25 at 09/1130 Juany Manuel RN 01/09/2025 LE SEWER documented in this encounter Plan of Treatment Not on file documented as of this encounter Visit Diagnoses Not on filedocumented in this encounter Care Teams Financial Analysis Advisor Relationship Specialty Start Date End Date No Ref-Primary, Physician PCP - General 12/14/23 Juany Manuel RN Home Infusion Cytogenetics Laboratory Manager 09/06/2401/21/25 Giovanna Andersen MD [address] [place] [address] Home Infusion Following Provider human factors ergonomist 09/09/24 01/21/25 Anitha Anaya MD [facility] [address] [place] [address] Physician human factors ergonomist 09/09/24 documented as of this encounter
--- OUTSIDE RECORDS SUMMARY | 2025-02-22 00:21 | XMS_ITS | Encounter Summary ---
Author Organization [facility] Address [address] [place] [address] Care Team Providers Care Public Aid Eligibility Assistant Name Role Phone No Ref-Primary, Physician Primary Care Provider Juany Manuel RN Unavailable Unavailable Giovanna Andersen MD Unavailable Anitha Anaya MD Unavailable [phone] Encounter Details Date Type Department Care Team (Latest Contact Info) Description 01/17/2025 5:13 PM STONE FABRICATOR - 01/17/2025 7:01 PM STONE FABRICATOR Hospital Encounter [facility] [address] [place] [address] Geri Alanis MD [address] [facility] [address] [place], [place] [phone] Hyperemesis gravidarum (Primary Dx); Infection of peripherally inserted central catheter (PICC), initial encounter Discharge Disposition: Home or Self Care Social History Tobacco Use Types Packs/Day Years Used Date Smoking Tobacco: Never Smokeless Tobacco: Never Adolescent Education Answer Date Record ed Getting School Help Needed Not on file 08/13 Comments Yes Sex and Gender Information Value Date Recorded Sex Assigned at Not on file Legal Sex Female 10:15 AM STONE FABRICATOR Gender Identity Not on file Sexual Orientation Not on file documented as of this encounter Last Filed Vital Signs Vital Sign Reading Time Taken Comments Blood Pressure 116/81 01/17/2025 5:33 PM STONE FABRICATOR Pulse - - Temperature 36.7 C (98 F) 01/17/2025 5:33 PM STONE FABRICATOR Respiratory Rate 16 01/17/2025 5:33 PM STONE FABRICATOR Oxygen Saturation - - Inhaled Oxygen Concentration - - Weight - - Height - - Body Mass Index - - documented in this encounter Discharge Instructions * Discharge Instructions* Fiorella Pryor, RN - 01/17/2025 6:55 PM STONE FABRICATOR Learning About When to Call Your Doctor During (After 20 Weeks) Overview It's common to have concerns about what might be a problem when you're . Most pregnancies don't have any serious problems. But it's still important to know when to call your doctor if you have certain symptoms or signs of labor. These are general suggestions. Your doctor may give you some more information about when to call. When to call your doctor (after 20 weeks) Call 911 anytime you think you may need emergency care. For example, call if: You have severe vaginal bleeding. This means you are soaking through a pad each hour for 2 or more hours. You have sudden, severe pain in your belly. You have chest pain, are short of breath, or cough up blood. You passed out (lost consciousness). You have a seizure. You see or feel the umbilical cord. You think you are about to deliver your baby and can't make it safely to the hospital or birthing center. Call your doctor now or seek immediate medical care if: You have vaginal bleeding. You have belly pain. You have a fever. You are dizzy or lightheaded, or you feel like you may faint. You have signs of a blood clot in your leg (called a deep vein thrombosis), such as: Pain in the calf, back of the knee, thigh, or groin. Swelling in your leg or groin. A color change on the leg or groin. The skin may be reddish or purplish, depending on your usual skin color. You have symptoms of preeclampsia, such as: Sudden swelling of your face, hands, or feet. New vision problems (such as dimness, blurring, or seeing spots). A severe headache. You have a sudden release of fluid from your vagina. (You think your water broke.) You've been having regular contractions for an hour. This means that you've had at least 6 contractions within 1 hour, even after you change your position and drink fluids. You notice that your baby has stopped moving or is moving less than normal. You have signs of heart failure, such as: New or increased shortness of breath. New or worse swelling in your legs, ankles, or feet. Sudden weight gain, such as more than 2 to 3 pounds in a day or 5 pounds in a week. Feeling so tired or weak that you cannot do your usual activities. You have symptoms of a urinary tract infection. These may include: Pain or burning when you urinate. A frequent need to urinate without being able to pass much urine. Pain in the flank, which is just below the rib cage and above the waist on either side of the back. Blood in your urine. Watch closely for changes in your health, and be sure to contact your doctor if: You have vaginal discharge that smells bad. You feel sad, anxious, or hopeless for more than a few days. You have skin changes, such as a rash, itching, or a yellow color to your skin. You have other concerns about your . If you have labor signs at 37 weeks or more If you have signs of labor at 37 weeks or more, your doctor may tell you to call when your labor becomes more active. Symptoms of active labor include: Contractions that are regular. Contractions that are less than 5 minutes apart. Contractions that are hard to talk through. Follow-up care is a lazo part of your treatment and safety. Be sure to make and go to all appointments, and call your doctor if you are having problems. It's also a good idea to know your test resultsand keep a list of the medicines you take. Where can you learn more? Go to https://www.[employer].net/patiented Enter N531 in the search box to learn more about Learning About When to Call Your Doctor During (After 20 Weeks). Current as of: March 20, 2024 Content Version: 14.3 ?? 2023 [employer]. Care instructions adapted under license by your healthcare professional. If you have questions about a medical condition or this instruction, always ask your healthcare professional. [employer] disclaims any warranty or liability for your use of this information. E FABRICATOR E FABRICATOR documented in this encounter Medications at Time of Discharge clobetasol (TEMOVATE) 0.05 % external ointmentIndicatio ns:Labor and delivery, indication for care Apply topically 2 times daily. 453 g 5 oxyCODONE (ROXICODONE) 5 MG tabletIndications :Labor and delivery, indication for care Take 1 tablet (5 mg) by mouth every 4 hours as needed for moderate pain. 15 tablet 5 predniSONE (DELTASONE) 20 MG tabletIndications :Labor and delivery, indication for care Take 1 tablet (20 mg) by mouth daily. 3 tablet 5 cephALEXin (KEFLEX) 500 MG capsuleIndication s:Infection of peripherally inserted central catheter (PICC), initial encounter Take 1 capsule (500 mg) by mouth 4 times daily for 7 days. 28 capsule 5 01/25/20 25 alteplase (CATHFLO ACTIVASE) injectionIndicati ons:Hyperemesis gravidarum Inject 2 mLs (2 mg) into catheter as needed (catheter occlusion). Reconstitute vial. Draw up alteplase 1 mg/mL in a syringe and instill into IV catheter. Dwell for at least 20 min to 24 hours, then aspirate. May repeat dose once in 24 hours if catheter function not restored after at least 2 hours. Discard remainder of vial. [id number] each 4 01/18/20 25 aspirin (ASA) 81 MG chewable tablet Take 81 mg by mouth 2 times daily. 02/10/20 25 dextrose 5% in lactated ringers in 1,000 mL via CADD pumpIndications:H yperemesis gravidarum Infuse into the vein daily as needed (for dehydration). Remove air via CADD pump. Infuse 2-3 bags (2000 - 3000 mL). Each bag to infuse over [address] hours. [place] Volume 1000 mL. Continuous rate: 500 mL/hr. Add Infuvite-Adult 10ml to one bag daily just prior to infusion. [id number] mL 11/20/2024 11:59 PM STONE FABRICATOR 4 01/18/20 25 doxylamine (UNISOM) 25 MG TABS tablet Take 25 mg by mouth at bedtime 02/10/20 25 Emergency Supply Kit, Central,Indicatio ns:Hyperemesis gravidarum Patient use for emergency only. Contents: 3 sodium chloride 0.9% flushes, 1 dressing kit, 1 microclave ext set 14, 4 nitrile gloves (med), 6 alcohol prep pads, 1 bacitracin, 1 syringe (10 cc 20 G 1). Call to reorder. [id number] kit 01/18/20 25 famotidine (PEPCID) 20 MG tabletIndications :Gastroesophageal Reflux Disease Take 20 mg by mouth 2 times daily. 02/10/20 25 magnesium oxide 200 MG TABS Take 400 mg by mouth daily. 5 02/10/20 25 Multiple Vitamin (INFUVITE ADULT) injectionIndicati ons:Hyperemesis gravidarum Add to infusion 10 mLs daily. Select 2 multivitamin vials, one of each color top. Draw up 5 mL from each vial and add to one hydration bag daily immediately prior to infusing 2870 mL 11/20/2024 11:59 PM STONE FABRICATOR 4 01/18/20 25 ondansetron (ZOFRAN ODT) 4 MG ODT tabIndications:Hy peremesis gravidarum Take 1 tablet (4 mg) by mouth every 8 hours as needed for nausea. 30 tablet 1 5 02/10/20 25 ondansetron (ZOFRAN) 4 MG tabletIndications :Hyperemesis gravidarum Take 1-2 tablets (4-8 mg) by mouth every 6 hours as needed for nausea 30 tablet 4 02/10/20 25 ondansetron (ZOFRAN) injectionIndicati ons:Hyperemesis gravidarum Inject 4 mLs (8 mg) over 5-10 minutes into the vein via push every 12 hours as needed for nausea or vomiting. Draw up in a syringe. Do not take at the same time as oral ondansetron. Discard vial after 28 days once opened. 2300 mL 12/31/2024 11:59 PM STONE FABRICATOR 4 01/18/20 25 prochlorperazine (COMPAZINE) 25 MG suppositoryIndica tions:Nausea and/or Vomiting in Place 12.5 mg rectally every 12 hours as needed for nausea. 02/10/20 25 promethazine (PHENERGAN) 25 MG suppositoryIndica tions:Hyperemesis gravidarum Place 1 suppository (25 mg) rectally every 6 hours as needed for nausea 10 suppository 4 02/10/20 25 Pyridoxine HCl (B-6 PO) 02/10/20 25 sodium chloride, PF, 0.9% PF flushIndications: Hyperemesis gravidarum Inject 10 mLs into the vein as needed for line flush. Flush IV before and after medication administration as directed and/or at least every 24 hours. [id number] mL 12/31/2024 11:59 PM STONE FABRICATOR 01/18/20 25 sterile water, preservative free, injectionIndicati ons:Hyperemesis gravidarum Use 2.2 mLs for reconstitution as needed (with alteplase for catheter occlusion). Direct diluent stream into powder. Mix by gently swirling until dissolved. DO NOT SHAKE. Discard remainder of vial. [id number] mL 01/18/20 25 documented as of this encounter Miscellaneous Notes * Plan of Care - Fiorella Pryor RN - 01/17/2025 6:57 PM CST Data: Patient assessed in the Birthplace for PICC removal. Cervical exam not examined. Membranes intact. Contractions/uterine assessment none while on monitor. Action: Presumed adequate oxygenation documented (see flow record). Discharge instructions reviewed. Patient instructed to report change in movement, vaginal leaking of fluid or bleeding,abdominal pain, or any concerns related to the to her nurse/physician. Response: Orders to discharge home per Geri Alanis. Patient verbalized understanding of education and verbalized agreement with plan. Discharged to home at 1850. PICC removed and pt waited per recommendation for 20-25 minuites before leaving [facility] per pt request. Pt was very nervous to go home without po Zofran on hand and states she did ot have any at home E FABRICATOR * Plan of Care - Fiorella Pryor RN - 01/17/2025 5:38 PM CST Goal Outcome Evaluation: Data: Patient presented to [facility]: 01/17/2025 5:13 PM. Reason for maternal/ assessment is PICC removal per Dr Alanis. Patient reports on 01/15 Home Health nurse noted PICC looked infected-recommended removal. Pt saw Dr Umaña who brittaney labs at yesterday's appt -results of WBC elevated. Patient is a . record reviewed. has been complicated by hyperemesis gravidarum. Gestational Age 36w3d. VSS. movement active. Patient denies uterine contractions, leaking of vaginal fluid/rupture of membranes, vaginal bleeding, abdominal pain, pelvic pressure, headache, visual disturbances, epigastric or URQ pain, significant edema. Support person is present. Action: Verbal consent for EFM. Triage assessment completed. Bill of rights reviewed. Response: Patient verbalized agreement with plan. Will contact Dr Geri Alanis with update and for further orders. Per Zeke- PICC removal and NST then may discharge if CAT 1 and afebrile. was already sending inrx for Keflex E FABRICATOR documented in this encounter Plan of Treatment Scheduled Orders Name Type Priority Associated Diagnoses Orde r Schedule Non Stress Test by Provider/morphologist Routine One Time for 1 Occurrences starting 01/17/2025 until 01/17/2025 documented as of this encounter Procedures Procedure Name Priority Date/Time Associated Diagnosis Comments NON-STRESS TEST - HIM SCAN 01/17/2025 12:00 AM STONE FABRICATOR NON-STRESS TEST - HIM SCAN 01/17/2025 12:00 AM STONE FABRICATOR documented in this encounter Results * Non-Stress Test - HIM Scan (01/17/2025 12:00 AM STONE FABRICATOR) 01/17/2025 us Provider Outside PROCEDURES Final Result * Non-Stress Test - HIM Scan (01/17/2025 12:00 AM STONE FABRICATOR) 01/17/2025 us Provider Outside PROCEDURES Final Result documented in this encounter Visit Diagnoses Diagnosis Hyperemesis gravidarum- Primary Mild hyperemesis gravidarum, unspecified as to episode of care Infection of peripherally inserted central catheter (PICC), initial encounter Indication for care in labor or delivery Unspecified indication for care or intervention related to labor and delivery, unspecified as to episode of care documented in this encounter Care Teams Public Aid Eligibility Assistant Relationship Specialty Start Date End Date No Ref-Primary, Physician PCP - General 12/14/23 Juany Manuel, [facility] Cocoa Powder Mixer Operator 09/06/2401/21/25 Giovanna Andersen MD [address] [place] [address] Home Infusion Following Provider media marketing coordinator 09/09/24 01/21/25 Anitha Anaya MD [facility] [address] [place] [address] Physician media marketing coordinator 09/09/24 documented as of this encounter
--- OUTSIDE RECORDS SUMMARY | 2025-02-22 00:21 | XMS_ITS | Encounter Summary ---
Author Organization [facility] Address [address] [place] [address] Care Team Providers Care Leather Stripping Machine Operator Name Role Phone No Ref-Primary, Physician Primary Care Provider Juany Manuel RN Unavailable Unavailable Giovanna Andersen MD Unavailable Anitha Anaya MD Unavailable [phone] Encounter Details Date Type Department Care Team (Late st Contact Info) Description 01/18/2025 Home Infusion [facility] [address] [place] [address] Esther Valenzuela [facility] [address] [place] [address] Hyperemesis gravidarum (Primary Dx) Social History Tobacco Use Types Packs/Day Years Used Date Smoking Tobacco: Never Smokeless Tobacco: Never Adolescent Education Answer Date Record ed Getting School Help Needed Not on file 08/13 Comments Yes Sex and Gender Information Value Date Recorded Sex Assigned at Not on file Legal Sex Female 10:15 AM COMMUNITY ACTION WORKER Gender Identity Not on file Sexual Orientation Not on file documented as of this encounter Plan of Treatment Not on file documented as of this encounter Visit Diagnoses Diagnosis Hyperemesis gravidarum- Primary Mild hyperemesis gravidarum, unspecified as to episode of care documented in this encounter Care Teams Leather Stripping Machine Operator Relationship Specialty Start Date End Date No Ref-Primary, Physician PCP - General 12/14/23 Juany Manuel, RN Home Infusion Auto Travel Counselor 09/06/2401/21/25 Giovanna Andersen MD [address] [id number] Home Infusion Following Provider calculator operator 09/09/24 01/21/25 Anitha Anaya MD [facility] [address] [place] [id number] Physician calculator operator 09/09/24 documented as of this encounter
--- OUTSIDE RECORDS SUMMARY | 2025-02-22 00:21 | XMS_ITS | Encounter Summary ---
Author Organization [facility] Address [address] [place] [address] Care Team Providers Care Social Group Worker Name Role Phone No Ref-Primary, Physician Primary Care Provider Anitha Anaya MD Unavailable [phone] Encounter Details Date Type Department Care Team (Latest Contact Info) Description 01/31/2025 Travel Social History Tobacco Use Types Packs/Day Years Used Date Smoking Tobacco: Never Smokeless Tobacco: Never Adolescent Education Answer Date Record ed Getting School Help Needed Not on file 08/13 Comments Yes Sex and Gender Information Value Date Recorded Sex Assigned at Not on file Legal Sex Female 10:15 AM SOUND EFFECTS PERSON Gender Identity Not on file Sexual Orientation Not on file documented as of this encounter Plan of Treatment Not on file documented as of this encounter Visit Diagnoses Not on filedocumented in this encounter Care Teams Social Group Worker Relationship Specialty Start Date End Date No Ref-Primary, Physician PCP - General 12/14/23 Anitha Anaya MD [facility] [address] [place] [address] Physician market risk specialist 09/09/24 documented as of this encounter
--- OUTSIDE RECORDS SUMMARY | 2025-02-22 00:21 | XMS_ITS | Encounter Summary ---
Author Organization [facility] Address [address] [place] [address] Care Team Providers Care Machine Bobbin Winder Name Role Phone No Ref-Primary, Physician Primary Care Provider Anitha Anaya MD Unavailable [phone] Reason for Visit * Auth/Cert (Routine) Specialty Diagnoses / Procedures Referred By Contac t Referred To Contact multicraft operator Diagnoses Labor and delivery, indication for care [facility] [address] [place] [address] Phone: tel: fax: Referral ID Status Reason Start Date Expiration Date Visits Re quested Visits Authorized [id number] 1 1 Encounter Details Date Type Department Care Team (Late st Contact Info) Description 02/05/2025 10:45 PM CDT - 02/06/2025 12:15 AM CDT Surgery [facility] [address] [place] [id number] Pete Orozco MD [address] [facility] [address] [place], [place] [address] section Surgery Details Date/Time Status Location OR Service Patient Class Case Class Case Type Trauma Case? 02/05/2025 10:45 PM Posted RH L+D LD 01 Obstetrics Inpatient NEST 2 - Emergent (within 1hr) Panel 1 Procedure [facility] Anes Op Region Wound Class Comments section N/A Spinal Abdomen II-Clean Cont aminated Surgeon Surgeon Role Service Panel Ou-Pete Cruz MD Primary Obstetrics 1 documented in this encounter Social History Tobacco Use Types Packs/Day Years Used Date Smoking Tobacco: Never Smokeless Tobacco: Never Alcohol Use Standard Drinks/Week Comments Not Currently 0 (1 standard drink = 0.6 oz pur e alcohol) Dudley Depression Scale Answer Date Recorded Last EPDS [...] in an abandoned building, in an overnight alf, or couch-surfing.) Yes 02/05/2025 Are you worried [...] on file 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 Copyright 2020 [facility]. All rights reserved. Clinically reviewed by Alanna Monroy, SUNDARC-OB, MSN. [employer] [id number] - Rev 01/13. documented in this encounter [...] (PHN) in to see patient to discuss [facility] ([facility]) programs.Patient is not interested in referral for a nurse visit at this time but will reach out to [facility] if interested in scheduling a nurse visit. PHN discussed [facility] community resource guide and rack cards and left these resources with patient. * Orlando Cardenas MD - 02/07/2025 7:45 AM CDT POD 2 Vss afeb c/o itching and rash on abd FF,NT Incision- intact Ext NT Imp- POD 2, rash due to prep Plan-Benadryl and topical hydrocortisone. Routine care discharge tomorrow * Liseth Ayala PA-C - 02/06/2025 7:36 AM CDT [facility] Obstetrics Post-Op / Progress Note Interval History: [...] 0000 89/49 -- -- -- -- -- 02/05/25 2357 (!) 82/52 -- -- -- -- -- 02/05/25 2354 (!) 79/52 -- -- -- -- -- [...] NAD, A&Ox 3 Abd: gravid, NT SVE: 50/-4 FHT: cat 1 reactive TOCO: Q2-3 min, [...] gravid, NT SVE: dilapan removed x 3. /-4, vertex FHT: cat 1 TOCO: irregular A/P: [...] GBS neg - EFW 9 lb PETE J. OU-CRUZ, MD documented in this encounter Miscellaneous Notes [...] shift note. Outcome: Progressing Flowsheets (Taken 02/09/2025 5512) Plan of Care Reviewed With: patient Overall [...] Recent Flowsheet Documentation Taken 02/08/20252312 by Trisha Ladd, RN Body Position: position changed independently Intervention: Prevent and Manage VTE (Venous Thromboembolism) Risk Recent Flowsheet Documentation Taken 02/08/20252312 by Trisha Ladd, RN VTE Prevention/Management: SCDs off (sequential compression [...] behavior modeled cue recognition promoted rooming-in promoted wyez-xx-hjvk contact encouraged Goal: Hemostasis Outcome: Progressing Goal: [...] Recent Flowsheet Documentation Taken 02/08/20252312 by Trisha aLdd RN Head of Bed (HOB) Positioning: HOB [...] Taken 02/08/2025 1604 by Mary Varela, RN VTE Prevention/Management: SCDs off (sequential compression devices) Taken 02/08/2025 0812 by Mary Varela RN VTE Prevention/Management: SCDs off (sequential compression devices) Intervention: Prevent Infection Recent Flowsheet Documentation Taken 02/08/2025 1604 by Mary Varela, RN Infection Prevention: rest/sleep promoted hand hygiene promoted Taken 02/08/2025 0812 by Mary Varela, RN Infection Prevention: rest/sleep promoted hand hygiene promoted Goal: Optimal Comfort and Wellbeing Outcome: Progressing Intervention: Monitor Pain and Promote Comfort Recent Flowsheet Documentation Taken 02/08/2025 1604 by Mary Varela, outside upholsterer Interventions: cold applied medication (see MAR) Taken 02/08/2025 0812 by Mary Varela, outside upholsterer Interventions: cold applied medication (see MAR) Intervention: Provide Person-Centered Care Recent Flowsheet Documentation Taken 02/08/2025 1604 by Mary Varela RN Trust Relationship/Rapport: care [...] Taken 02/08/2025 1604 by Mary Varela RN Pain Management Interventions: cold applied medication (see MAR) Taken [...] for less than 10 minutes before fatigue. 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 Nursed for ashort period before non effective at breast. Transfer of 8 mls. Volleyball Player changed plan. Bring infant to breast when due to feed. Pump [...] Recent Flowsheet Documentation Taken 02/07/20252305 by Janae Angel, SUNDAR Body Position: position changed independently Taken 02/07/20251954 by Janae Angel RN Body Position: position changed independently Intervention: Prevent Infection Recent Flowsheet Documentation Taken 02/07/20252305 by Janae Angel, SUNDAR Infection Prevention: hand hygiene promoted rest/sleep promoted [...] bedside, supportive. Positive bonding and attachment with infant observed, attentive to cues. Problem: Adult Inpatient Plan of Care Goal: Plan of Care Review Description: The Plan of Care Review/Shift note should be completed every shift. The Outcome Evaluation is a brief statement about your assessment that the patient is improving, declining, or no change. This information will be displayed automatically on your shift note. 02/07/2025 154 by Destiny Scott RN Outcome: Progressing Flowsheets (Taken 02/07/20251546) Plan of Care Reviewed With: patient spouse Overall Patient Progress: improving 02/07/2025 143 by Destiny Scott RN Outcome: Progressing Flowsheets (Taken 02/07/20251435) Plan of Care Reviewed With: patient spouse [...] me up as it startles me. 02/07/2025 154 by Destiny Scott RN Outcome: Progressing 02/07/20251435 by Destiny Scott RN Outcome: Progressing Goal: Absence of Hospital-Acquired Illness or Injury 02/07/20251546 by Destiny Scott RN Outcome: Progressing 02/07/20251435 by Destiny Scott RN Outcome: Progressing Intervention: Prevent Skin Injury Recent Flowsheet Documentation Taken 02/07/2025925 by Destiny Scott RN Body Position: position changed independently Intervention: Prevent Infection Recent Flowsheet Documentation Taken 02/07/2025925 by Destiny Scott RN Infection Prevention: hand hygiene promoted rest/sleep promoted single patient room provided Goal: Optimal Comfort and Wellbeing 02/07/20251546 by Destiny Scott RN Outcome: Progressing [...] 02/07/20251546 by Destiny Scott RN Outcome: Progressing 02/07/2025 1436 by Destiny Scott RN Outcome: Progressing Problem: ( Delivery) Goal: Successful Parent Role Transition 02/07/2025 1547 by Destiny Scott RN Outcome: Progressing 02/07/2025 1436 by Destiny Scott RN Outcome: Progressing Intervention: Support Parent Role Transition Recent Flowsheet Documentation Taken 02/07/2025 09 by Destiny Scott RN Supportive Measures: active listening utilized decision-making supported goal-setting facilitated positive reinforcement provided problem-solving facilitated relaxation techniques promoted self-care encouraged verbalization of feelings encouraged Parent-Child Attachment Promotion: caring behavior modeled cue recognition promoted vjxq-zu-tihn positioning promoted interaction encouraged parent/caregiver presence encouraged participation in care promoted positive reinforcement provided rooming-in promoted fxcy-wf-qvwz contact encouraged strengths emphasized Goal: Hemostasis 02/07/2025 [...] Manage Pain Recent Flowsheet Documentation Taken 02/07/2025 0926 by Destiny Scott RN Pain Management Interventions: shower Goal: Nausea and Vomiting Relief 02/07/2025 1547 by Reutzel, Destiny, RN Outcome: Progressing 02/07/2025 1436 by Destiny [...] 10:40 AM CDT Visit: was STS when rfp writer entered the room. Infant was able [...] Interventions: medication (see MAR) cold applied Taken 02/06/2025 2031 by Janae Angel RN Pain Management Interventions: [...] Recent Flowsheet Documentation Taken 02/06/20252315 by Janae Angle RN Supportive Measures: active listening utilized decision-making [...] Ellis RN - 02/06/2025 6:50 PM CDT 02/06/25 183 Provider Notification Provider Name/Title Dr Umaña Method [...] Prevent Skin Injury Recent Flowsheet Documentation Taken 02/06/2025 08 by Liseth De Santiago RN Body Position: position changed independently Goal: Optimal Comfort and Wellbeing Outcome: Progressing Intervention: Monitor Pain and Promote Comfort Recent Flowsheet Documentation Taken 02/06/2025 1205 by Liseth De Santiago RN Pain Management Interventions: medication (see MAR) Taken 02/06/2025 08 by Liseth De Santiago RN Pain Management [...] or Manage Pain Recent Flowsheet Documentation Taken 02/06/2025 1205 by Liseth De Santiago RN Pain Management Interventions: medication (see MAR) Taken 02/06/2025 08 by Liseth De Santiago RN Pain Management [...] Documentation Taken 02/06/2025329 by Claire Cosme RN Infection Prevention: hand hygiene promoted rest/sleep [...] Promotion: caring behavior modeled cue recognition promoted uhia-ji-tnuz positioning promoted interaction encouraged parent/caregiver presence encouraged participation in care promoted positive reinforcement provided rooming-in promoted hamy-al-allp contact encouraged strengths emphasized Goal: Hemostasis Outcome: [...] CDT Data: Mami Pete transferred to [facility] via cart at 0225. Baby transferred via [...] Orozco MD - 02/05/2025 11:48 PM CDT [facility] Brief Operative Note Pre-operative diagnosis: 1. Intrauterine [...] wrapped around R shoulder/arm x 1. The infant was bulb suctioned, delayed cord clamping was [...] pain 8/10 with contractions. MD performedSVE, unchanged . MD discussed options with patient, patient wishes to proceed with a . * Provider Notification - Evita Leon RN - 02/05/2025 9:04 PM CDT 02/05/252044 Provider Notification Provider Name/Title Dr. Orozco Method of Notification Electronic Page Patient SVE unchanged from /-3. Currently on 22 of pitocin, can be [...] Name/Title Dr. Orozco Notification Reason Other (Comment) (pacheco score is 6, clarified if want to do couple doses of cervical ripening first. stated ok to give x2 doses of po miso, then begin iv pit.) * Provider Notification - Ale An RN - 02/05/2025 8:02 AM CDT 02/05/25 6126 Provider Notification Provider Name/Title scott Method of [...] 6:38 AM CDT 02/06/2025 6:54 AM CDT Pete Orozco MD LAB - BLOOD ORDERABLES Final Result [facility] Acute Care Lab [address] [facility] Lab (1st floor, no room number) [place] [address] * Adult Type and Screen (02/05/2025 8:28 AM CDT) ABO/RH(D) A POS 02/05/2025 8:27 AM CDT [facility] BLOOD BANK Antibody Screen Negative Negative 02/05/2025 8:27 AM CDT RH BLOOD BANK SPECIMEN EXPIRATION DATE [id number] 02/05/2025 8:27 AM CDT [facility] BLOOD BANK Blood BLOOD SPECIMEN / Unknown Venipuncture / Unknown 02/05/2025 8:28 AM CDT 02/05/2025 8:53 AM CDT Pete Orozco MD LAB - BLOOD BANK TEST ORDER Final Result BLOOD BANK [address] [place] [address] * Treponema Abs w Reflex to RPR and Titer (02/05/2025 8:28 AM CDT) Treponema Antibody Total Nonreactive Nonreactive 02/05/2025 1:19 PM CDT [facility] Blood BLOOD SPECIMEN / Unknown Venipuncture / Unknown 02/05/2025 8:28 AM CDT 02/05/2025 8:49 AM CDT Pete Orozco MD LAB - BLOOD ORDERABLES Final Result [facility] [address], Room [address] * CBC with platelets (02/05/2025 8:28 [...] - BLOOD ORDERABLES Final Result [facility] LABORATORY [facility] Acute Care Lab [address] Lab (1st floor, no room number) [place] [address], [facility] documented in this encounter Visit Diagnoses Diagnosis [...] delivery, unspecified as to episode of care 39 weeks gestation of state, incidental documented in this encounter Admitting Diagnoses Diagnosis [...] $Given 02/06/2025 7:03 PM CDT 25 mg hydrocortisone (CORTAID) 1 % cream Topical, [...] $Given 02/08/2025 7:30 PM CDT 800 mg loperamide (IMODIUM) capsule 4 mg 4 mg, [...] 02/07/2025 10:40 AM CDT 30 mLs misoprostol (CYTOTEC) tablet 400 mcg 400 mcg, [...] or analgesic side effects. Hold while on BEHAVIORAL SCIENCE CHAIR or with regular IV opioid dosing. Maximum total is 60 mg in 24 hours. $Given 02/08/2025 11:15 PM CDT 5 mg $Given 02/08/2025 10:14 AM CDT 5 mg predniSONE (DELTASONE) tablet 20 mg 20 mg, [...] 02/06/2025 12:04 PM CDT 3 mLs sodium chloride 0.9% (bottle) irrigation PRN, Starting on Tue02/05/25 at 2320, Anesthesia Intra-op $Given 02/05/2025 11:20 PM CDT 200 mLs documented in this encounter Active and [...] Janae Angel RN)1041 ($Given - Provider: Destiny Scott, RN)1719 ($Given - Provider: Destiny Scott RN)2304 ($Given - Provider: Janae Angel RN) 0506 ($Given - Provider: Janae Angel RN)1045 ($Given - Provider: Mary Varela RN)1622 ($Given - Provider: Mary Varela RN)2314 ($Given - Provider: Trisha Ladd RN) 0535 ($Given - Provider: Trisha Ladd RN)1148 ($Given - Provider: Emperatriz Carver RN) clobetasol (TEMOVATE) 0.05 % ointment Topical, 2 TIMES DAILY, First dose on Tue02/08/25 at 1030, Apply to abdomen 1045 ($Given - Provider: Mary Varela RN)2314 ($Given - Provider: Trisha Ladd, SUNDAR) 0849 ($Given - Provider: Emperatriz Carver RN) [...] 0932 (See Alternative - Provider: Destiny Scott RN)1948 (See Alternative - Provider: Janae Angel RN)2051 (See Alternative - Provider: Janae Angel RN) 0957 (Not Given - Provider: Mary Varela RN - Reason: Patient/family refused)2314 ($Given - Provider: Trisha Ladd RN) 0849 ($Given - Provider: Emepratriz Carver RN) senna-docusate (SENOKOT-S/PERICOLACE) 8.6-50 MG per tablet 2 tablet(Linked Group 1) 2 tablet, Oral, 2 TIMES DAILY, First dose on Tue02/06/25 at 0100, Hold for loose stools. Preferred agent for constipation related to opioids. Hold for loose stools. 0932 ($Given - Provider: Destiny Scott RN)1948 ($Given - Provider: Janae Angel RN)2052 (Not Given - Provider: Janae Angel RN - Reason: Other) 0957 (See Alternative - Provider: Mary Varela RN)2314 (See Alternative - Provider: Trisha Ladd RN) 0849 (See Alternative - Provider: Emperatriz Carver RN) sodium chloride (PF) 0.9% PF flush 3 [...] IV Access)1637 (Not Given - Provider: Mary Vareal RN - Reason: No IV Access) 0236 (Not Given - Provider: Trisha Ladd RN - Reason: No IV Access)1044 [...] Comment: Pt wants to take closer to bedtime.)194 ($Given - Provider: Janae Angel RN) 0102 ($Given - Provider: Janae Angel RN)0732 ($Given - Provider: Janae Angel RN)1622 ($Given - Provider: Mary Varela RN) 0229 ($Given - Provider: Trisha Ladd RN) diphenhydrAMINE (BENADRYL) injection 25 mg(Linked Group 3) 25 mg, Intravenous, EVERY 6 HOURS PRN, itching, Starting on Tue02/06/25 at 1841 1057 (See Alternative - Provider: Destiny Scott RN)1721 (See Alternative - Provider: Destiny Scott RN)194 (See Alternative - Provider: Janae Angel RN) 0102 (See Alternative - Provider: Janae Angel RN)0732 (See Alternative - Provider: Janae Angel RN)1622 (See Alternative - Provider: Mary Varela RN) 0229 (See Alternative - Provider: Trisha Ladd RN) hydrocortisone (Perianal) (ANUSOL-HC) 2.5 % cream [...] with VAD insertion, Starting on Tue02/06/25 at 003, MAX dose 1 mL subcutaneous OR intradermal [...] or analgesic side effects. Hold while on BEHAVIORAL SCIENCE CHAIR or with regular IV opioid dosing. Maximum [...] access is available., Starting on Tue02/06/25 at 30, For 1 dose, Notify provider immediately when injection given. Oxytocin is first line medication for PPH. prochlorperazine (COMPAZINE) injection 10 mg(Linked Group 7) 10 mg, Intravenous, EVERY 6 HOURS PRN, nausea/vomiting - 3rd line, Administer over 2 Minutes, Starting on Tue02/06/25 at 003, This is Step 3 of OB nausea and vomiting management. Use IV if not tolerating oral therapy. Give if nausea not resolved 15 minutes after giving ondansetron (ZOFRAN). If nausea is not resolved in 30 minutes, notify provider. prochlorperazine (COMPAZINE) tablet 10 mg(Linked Group 7) 10 mg, Oral, EVERY 6 HOURS PRN, nausea/vomiting - 3rd line, Starting on Tue02/06/25 at 003, This is Step 3 of OB nausea and vomiting management. Preferred route. Give if nausea not resolved 15 minutes after giving ondansetron (ZOFRAN). If nausea is not resolved in 30 minutes, notify provider. simethicone (MYLICON) chewable tablet 80 mg 80 mg, Oral, 4 TIMES DAILY PRN, other, gas, Starting on Tue02/06/25 at 003, Chew. sodium chloride (PF) 0.9% PF flush 3 mL 3 mL, Intracatheter, EVERY 1 MIN PRN, line flush, other, to ensure patency or to lock dormant line, Starting on Tue02/06/25 at 0031 sodium phosphate (FLEET ENEMA) 1 [...] MIN PRN, Post- hemorrhage (PPH), Starting on Tue02/06/25 at 0031, For 2 doses, Provider consultation [...] Oral, 2 TIMES DAILY, First dose on 02/06/25 at 0100, If no bowel movement in 24 hours, increase to 2 tablets PO. Hold for loose stools. Preferred agent for constipation related to opioids. Hold for loose stools. Or senna-docusate (SENOKOT-S/PERICOLACE) 8.6-50 MG per tablet 2 tabletJump to med 2 tablet, Oral, 2 TIMES DAILY, First dose on 02/06/25 at 0100, Hold for loose stools. Preferred [...] provider. documented in this encounter Care Teams Machine Bobbin Winder Relationship Specialty Start Date End Date No Ref-Primary, Physician PCP - General 12/14/23 Anitha Anaya MD [facility] [address] [address] Physician multicraft operator 09/09/24 documented as of this encounter
--- OUTSIDE RECORDS SUMMARY | 2025-02-22 00:21 | XMS_ITS | Encounter Summary ---
Author Organization [facility] Address [address] [place] [address] Care Team Providers Care Procurement Internship Name Role Phone No Ref-Primary, Physician Primary Care Provider Juany Manuel RN Unavailable Unavailable Giovanna Andersen MD Unavailable Anitha Anaya MD Unavailable [phone] Encounter Details Date Type Department Care Team (Late st Contact Info) Description 01/03/2025 Home Infusion [facility] [address] [place] [address] Gwen Salomon, PharmD Social History Tobacco Use Types Packs/Day Years Used Date Smoking Tobacco: Never Smokeless Tobacco: Never Adolescent Education Answer Date Record ed Getting School Help Needed Not on file 08/13 Comments Yes Sex and Gender Information Value Date Recorded Sex Assigned at Not on file 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 Gender Identity Not on file Sexual Orientation Not on file documented as of this encounter Plan of Treatment Not on file documented as of this encounter Visit Diagnoses Not on filedocumented in this encounter Care Teams Procurement Internship Relationship Specialty Start Date End Date No Ref-Primary, Physician PCP - General 12/14/23 Juany Manuel, SUNDAR Home Infusion Bobbin Hauler 09/06/2401/21/25 Giovanna Andersen MD [address] [facility] [address] [place], [place] [id number] Home Infusion Following Provider fuse cutter 09/09/24 01/21/25 Anitha Anaya MD [facility] [address] [facility] [address] [place] [address] Physician fuse cutter 09/09/24 documented as of this encounter
[2025-02-22 00:24] VITALS: BP 139/78; PULSE 94; RESP 16; TEMP 36.8; O2SAT 100; BMI 31.6
--- NOTE | 2025-02-22 00:44 | CRLHL7_ITS ---
For Patients: As a result of the Century Cures Act, medical imaging exams and procedure reports are released immediately into your electronic medical record. You may view this report before your referring provider. If you have questions, please contact your health care provider. INDICATION: bleeding. TECHNIQUE: Ultrasound pelvis transabdominal and transvaginal for better assessment or to better visualize the endometrium. COMPARISON: None. FINDINGS: Uterus: 11.0 x 6.6 x 8.9 cm. Normal echotexture of the myometrium. No masses. Enlarged, compatible with state. Endometrium: Distended up to 1.4 cm containing heterogeneous hypoechoic nonvascular material, likely evolving blood products. No hyperemic focus or mass identified. The ovaries are not visualized. Cul-de-sac: No significant free fluid. IMPRESSION: 1. Enlarged uterus, compatible with state. 2. Moderately distended endometrium with likely blood products. No evidence for retained products of conception. Dictated by Fredy Leon MD @ 02/22/2025 1:53:28 AM (Electronically Signed)
--- NOTE | 2025-02-22 00:46 | ED.GENADULT ---
HPI - General Adult General Chief complaint: Vaginal Bleeding Stated complaint: vaginal bleeding Time Seen by Provider: 02/22/25 00:19 Source: patient Mode of arrival: ambulatory Limitations: no limitations History of Present Illness HPI narrative: 34-year-old female presents the emergency department for evaluation of bleeding. Patient delivered 16 days ago through primary at 39 weeks gestation with induction of labor for suspected large gestational age and hyperemesis through the . Her care was through [facility], we have no records. Reports that her bleeding was pretty typical initially, slowing considerably 5 days ago. About an hour prior to presentation, she reports that she was lying in bed and had a sudden gush feeling of warm fluid. Noted that this was unexpectedly blood. Does not bring pictures or linens to quantify for me but it does sound significant. She states that she called her Ob provider in the advised her to put on a pad and continue to monitor, coming in if the bleeding soaked through a pad within an hour again. She reports that she did put on a clean pad and that the bleeding soaked through within about 10 minutes. She called the OB and they recommended that she present to the nearest hospital for evaluation. No fever, no injury or trauma. course has been otherwise uncomplicated. 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 Denies other abdominal surgeries. No long-term medications. Intolerance to chlorhexidine and Reglan nonsmoker. ROS notable for the gynecological symptoms only, otherwise denies times 12 systems. Related Data Home Medications ?Medication ?Instructions ?Recorded ?Confirmed lisdexamfetamine [Vyvanse] 40 mg PO 03/28/24 03/28/24 sertraline 50 mg tablet 100 mg PO 03/28/24 03/28/24 Previous Rx's ?Medication ?Instructions ?Recorded methylergonovine 0.2 mg tablet 0.2 mg PO Q6H #3 tabs 02/22/25 Allergies Allergy/AdvReac Type Severity Reaction Status Date / Time metoclopramide (From Reglan) Allergy Severe syncope Verified 02/22/25 00:27 chlorhexidine Allergy Rash Verified 02/22/25 00:27 [facility] Medical History No significant past medical history Surgical History History of ?Z98.891 - History of uterine scar from previous surgery (ICD-10) Social History Smoking Status: Never smoker Second hand tobacco smoke exposure: No How often do you have a drink containing alcohol: never AUDIT-C Alcohol total score: 0 Non-prescribed substance use: denies use Exam Const: Vital Signs, click to edit/add: Vital Signs - 24 hr 02/22/25 00:24 02/22/25 02:31 Temperature 98.3 F 98.3 F Pulse Rate [Pulse Oximeter] 94 85 Respiratory Rate 16 16 Blood Pressure [Ri ght Upper Arm] 139/78 124/76 Pulse Oximetry 100 100 Oxygen Delivery Me thod Room Air Room Air Documenting provider has reviewed patient's vital signs: yes Common normals: no apparent distress and alert General appearance: cooperative, comfortable and well kempt HENMT: Common normals: normocephalic, moist oral mucous membranes and oropharynx normal Head and scalp: normocephalic Eye: Common normals: conjunctivae normal General eye: normal appearance of both eyes Conjunctiva: conjunctiva(e) normal Neck & C-Spine: Common normals: no lymphadenopathy General: normal visual inspection Resp: Common normals: normal respiratory effort, no use of accessory muscles and clear to auscultation bilaterally Auscultation: clear to auscultation bilaterally Cardio: Common normals: regular rate, regular rhythm, S1 normal heart sound, S2 normal heart sound and no murmurs Rate: regular rate Rhythm: regular rhythm Heart sounds: S1 normal and S2 normal GI: Common normals: Normal to inspection, nondistended, normoactive bowel sounds present and soft to palpation Palpation: soft Other: Mildly tender to left fundus on palpation, gestational size consistent with 12-14 week gestational age. Non boggy. Low-transverse incision healing well, no drainage or redness. No obvious mass. Normoactive bowel sounds. : Common normals: external appearance normal Other: No gushes with fundal pressure. Approximately 30 mL on pad in the room. Extremity: Common normals: normal to inspection and normal capillary refill Neuro: Sensorium/orientation: alert Motor exam: no movement abnormalities noted Psych: Common normals: thought process normal Appearance: well kempt Attitude: engaged Activity/motor behavior: appropriate eye contact Mood and affect: euthymic mood Thought process: normal thought process Insight: insight good Judgement: judgment good Skin: Common normals: no rashes or lesions noted General skin exam: no rashes or lesions noted Course Course ED Course: 34-year-old female from primary transverse presenting with reported hemorrhage, has slowed considerably now in the ED. will place peripheral IV, CBC basic metabolic panel, CRP quant level and type and screen. Ultrasound called. Differential diagnosis including endometritis, retained products of conception, hemorrhage, coagulopathy, amongst others. Will consult obstetric if bleeding worsens or lab abnormalities. Reevaluation(s) Time of Reevaluation #1: 02:35 Reevaluation #1: Counseled patient on findings. Ultrasound reviewed. No products of conception, blood is present in the endometrial canal. Ob team recommending Methergine. First dose given here in the ED. Continue Q 6 times 24 hours. Patient counseled on management. Will likely have increased cramping and passage of the retained blood, especially after the 1st dose of Methergine. Watch for signs of severe dizziness, lightheadedness, fatigue or severe persistent bleeding all of which would warrant coming back to the ED. Please call her Ob provider in the daylight hours to update on the findings here from the ED. We will try to push the images from her ultrasound up to the [facility] system and will also provide her with a CD. Follow-up appointment recommended in 1 week. Vital Signs Vital signs: Initial Vital Signs Temperature 98.3 F 02/22/25 00:24 Temperature Source Temporal Artery Scan 02/22/25 00:24 Pulse Rate 94 02/22/25 00:24 Respiratory Rate 16 02/22/25 00:24 Blood Pressure 139/78 02/22/25 00:24 Blood Pressure Mean 98 02/22/25 00:24 Blood Pressure Position Sitting 02/22/25 00:24 Pulse Oximetry 100 02/22/25 00:24 Oxygen Delivery Method Room Air 02/22/25 00:24 Vital Signs Temperature 98.3 F 02/22/25 00:24 Pulse Rate 94 02/22/25 00:24 Respiratory Rate 16 02/22/25 00:24 Blood Pressure 139/78 02/22/25 00:24 Pulse Oximetry 100 02/22/25 00:24 Oxygen Delivery Method Room Air 02/22/25 00:24 Temperature 98.3 F 02/22/25 02:31 Pulse Rate 85 02/22/25 02:31 Respiratory Rate 16 02/22/25 02:31 Blood Pressure 124/76 02/22/25 02:31 Pulse Oximetry 100 02/22/25 02:31 Oxygen Delivery Method Room Air 02/22/25 02:31 Medications Administered Medications: Generic Name Dose Route Start Last Admin Trade Name Freq PRN Reason Stop Dose Admin Methylergonovine Maleate 0.2 mg 02/22/25 02:23 02/22/25 02:36 Methylergonovine Maleate 0.2 Mg Tablet PO 02/22/25 02:24 0.2 mg ONCE ONE Administration Medical Decision Making Lab Data Lab results reviewed: Yes I reviewed the patient's lab results Lab results narrative: Labs all very reassuring. No leukocytosis, severe anemia, elevated hCG or elevated CRP. No coagulopathy. Labs: Lab Results 02/22/25 02/22/25 Range/Units 00:55 01:00 WBC 8.21 (4.50-11.00) K/uL RBC 4.42 (4.00-5.20) m/uL Hgb 12.9 (12.0-16.0) gm/dL Hct 39.8 (33.0-51.0) % MCV 90 (80-100) fL MCH 29 (26-34) pg MCHC 32 (32-36) gm/dL RDW Coeff of Dave 14.5 (11.5-15.5) % Plt Count 365 (140-440) K/uL Neut % (Auto) 46.9 (42.0-72.0) % Lymph % (Auto) 45.6 H (20-44) % Bulloch % (Auto) 5.1 (0.0-11.0) % Eos % (Auto) 1.9 (0.0-7.0) % Baso % (Auto) 0.4 (0.0-3.0) % Neut # (Auto) 3.85 (1.7-7.0) K/uL Lymph # (Auto) 3.70 H (0.90-2.90) K/uL Bulloch # (Auto) 0.40 (0.00-0.90) K/UL Eos # (Auto) 0.16 (0.00-0.50) K/uL Baso # (Auto) 0.03 (0.00-0.30) K/uL Abs Immat Gran (auto) 0.01 (0.00-0.30) K/uL Imm/Tot Granulo (auto) 0.1 % Sodium 133 L (135-149) mmol/L Potassium 3.8 (3.6-5.1) mmol/L Chloride 104 (96-114) mmol/L Carbon Dioxide 21 (20-32) mmol/L Anion Gap 8 (7-15) mEq/L BUN 11 (5-24) mg/dL Creatinine 0.6 (0.5-1.5) mg/dL Estimated Creat Clear 145.56 Estimated GFR 122 ml/min Glucose 98 (60-115) mg/dL Calcium 9.3 (8.4-10.6) mg/dL C-Reactive Protein 0.8 (0.5-1.0) mg/dL HCG, Quant < 2.39 mIU/mL Blood Type A Positive Antibody Screen NEGATIVE Imaging Data Pelvic ultrasound: Attestation: I have reviewed the pertinent imaging results. My impression: Endometrium does look a little thickened per my interpretation. Radiologist's impression: IMPRESSION: 1. Enlarged uterus, compatible with state. 2. Moderately distended endometrium with likely blood products. No evidence for retained products of conception. Dictated by Fredy Leon MD @ 02/22/2025 1:53:28 AM Discharge Plan Discharge Clinical Impression: bleeding Patient Disposition: Home w/ Parent or Adult Condition: Stable Instructions: Bleeding (ED) Additional Instructions: As we discussed, there does not seem to be any retained products of conception, pieces of placenta or other parts associated with the inside your uterus. There does not seem to be any sign of infection based on blood work and ultrasound also. This is good news. There is some loose blood inside the inner lining of the uterus. This can sometimes happen with really prolonged labors that end in . Our Ob provider recommended that we start you on a medicine called Methergine. You were given a dose here in the emergency department. He will continue taking 1 tablet every 6 hours for an additional 3 doses today, completing a 24 hour cycle. This will likely cause the uterus to cramp and clamping down more. You may have a few more gushes similar to what you experienced because of this. Most of the time though, this gets the rest of the blood out so that the uterus can stay clamped down and stop bleeding. Please picker those 3 tablets as soon as you are able when the pharmacy opens this morning, ideally your next dose would be around 10 30. Please call your OB team when they open today to update them on the things that were done in the emergency room. We have given you a CD copy of your ultrasound, as your OB team is not likely able to view the pictures through the computers. I will have our tech try to push the images up to the [facility] system electronically as well, this is not always successful. It is okay to use Tylenol and/or ibuprofen for the cramping. Please come back to the emergency department if you have severe persistent bleeding, dizziness, lightheadedness or feelings of faint. There were no signs of abnormal bleeding or blood clotting problems based on your blood work which is also great news. Activity Level: Activity as Tolerated and No strenuous activity Discharge Diet: Regular Prescriptions: New methylergonovine 0.2 mg tablet 0.2 mg PO Q6H Qty: 3 0RF No Action sertraline 50 mg tablet 100 mg PO Patient Comments: TAKE ONE TABLET BY MOUTH EVERY DAY DIRECTED lisdexamfetamine [Vyvanse] 40 mg PO Follow Up/Referrals: Provider,Not a Local [Primary Care Provider] - Stand Alone Forms: [employer] Info Instructions
[2025-02-22 01:05] LABS: Basophils Absolute Auto 0.03 K/uL (0.00-0.30); Basophils Percent Auto 0.4 % (0.0-3.0); Eosinophils Absolute Auto 0.16 K/uL (0.00-0.50); Eosinophils Percent Auto 1.9 % (0.0-7.0); Hematocrit 39.8 % (33.0-51.0); Hemoglobin* 12.9 gm/dL (12.0-16.0); Immature Granulocytes Abs Auto 0.01 K/uL (0.00-0.30); Immature Granulocytes Pct Auto 0.1 %; Lymphocytes Percent Auto 45.6 % (20-44); Mean Corpuscular HGB Conc 32 gm/dL (32-36); Mean Corpuscular Hemoglobin 29 pg (26-34); Mean Corpuscular Volume 90 fL (80-100); Monocytes Percent Auto 5.1 % (0.0-11.0); Neutrophils Absolute Auto 3.85 K/uL (1.7-7.0); Neutrophils Percent Auto 46.9 % (42.0-72.0); Platelet Count* 365 K/uL (140-440); RDW Coefficient of Variation % 14.5 % (11.5-15.5); Red Blood Count 4.42 m/uL (4.00-5.20); White Blood Count* 8.21 K/uL (4.50-11.00)
[2025-02-22 01:10] LABS: Slide Review Reflex No
[2025-02-22 01:44] LABS: Chloride* 104 mmol/L (96-114); Potassium* 3.8 mmol/L (3.6-5.1); Sodium* 133 mmol/L (135-149)
[2025-02-22 01:47] LABS: Blood Urea Nitrogen* 11 mg/dL (5-24); Creatinine* 0.6 mg/dL (0.5-1.5); Est. Creatinine Clearance* 145.56; Estimated Glomerular Filt Rate 122 ml/min
[2025-02-22 01:48] LABS: Anion Gap 8 mEq/L (7-15); Calcium* 9.3 mg/dL (8.4-10.6); Carbon Dioxide* 21 mmol/L (20-32); Glucose* 98 mg/dL (60-115)
--- OUTSIDE RECORDS SUMMARY | 2025-02-22 01:48 | XMS_ITS ---
Author Organization [facility] Address [address] [place] [id number] Care Team Providers Care Business Support Specialist Name Role Phone No Ref-Primary, Physician Primary Care Provider Anitha Anaya MD Unavailable [phone] Multivitamin Status:Closed (Closed) Start date:07/26/2024 Enrollment date:07/26/2024 End date:01/21/2025 Close reason:Therapy Completed Linked medications:Multiple Vitamin (Discontinued) Related program episode:Home Infusion (Closed) Continued Care and Services Coordination
--- OUTSIDE RECORDS SUMMARY | 2025-02-22 01:48 | XMS_ITS ---
Author Organization [facility] Address [address] [place] [address] Care Team Providers Care Patient Transporter Name Role Phone No Ref-Primary, Physician Primary Care Provider Anitha Anaya MD Unavailable [phone] Home Infusion Status:Closed (Closed) Start date:07/26/2024 Enrollment date:07/27/2024 End date:01/21/2025 Close reason:Therapy Completed Related service episodes:Antiemetic (Closed), Hydration Therapy (Closed), Multivitamin (Closed), Alteplase (Closed) Continued Care and Services Coordination This section includes services coordinated for Home Infusion. [facility] Name Services Phone [facility] [phone]
--- OUTSIDE RECORDS SUMMARY | 2025-02-22 01:48 | XMS_ITS ---
Author Organization [facility] Address [address] [place] [address] Care Team Providers Care Drilling Foreman Name Role Phone No Ref-Primary, Physician Primary Care Provider Anitha Anaya MD Unavailable [phone] Alteplase Status:Closed (Closed) Start date:07/26/2024 Enrollment date:07/26/2024 End date:01/21/2025 Close reason:Therapy Completed Linked medications:Alteplase (Discontinued) Linked problems:Hyperemesis gravidarum (Active) Related program episode:Home Infusion (Closed) Continued Care and Services Coordination
--- OUTSIDE RECORDS SUMMARY | 2025-02-22 01:48 | XMS_ITS ---
Author Organization [facility] Address [address] [place] [address] Care Team Providers Care Business Team Leader Name Role Phone No Ref-Primary, Physician Primary Care Provider Anitha Anaya MD Unavailable [phone] Transitional Care Management Status:Enrolled (Active) Start date:02/11/2025 Enrollment date:02/12/2025 Continued Care and Services Coordination
--- OUTSIDE RECORDS SUMMARY | 2025-02-22 01:48 | XMS_ITS ---
Author Organization [facility] Address [address] [place] [address] Care Team Providers Care Employee Benefits Specialist Name Role Phone No Ref-Primary, Physician Primary Care Provider Anitha Anaya MD Unavailable [phone] Hydration Therapy Status:Closed (Closed) Start date:07/26/2024 Enrollment date:07/27/2024 End date:01/21/2025 Close reason:Therapy Completed Linked medications:Dextrose in Lactated Ringers (Discontinued) Linked problems:Hyperemesis gravidarum (Active) Related program episode:Home Infusion (Closed) Continued Care and Services Coordination
--- OUTSIDE RECORDS SUMMARY | 2025-02-22 01:48 | XMS_ITS | Clinical Summary ---
[facility] Address [address] [place] [address] Care Team Providers Care Terrazzo Tile Setter Name Role Phone Needs Pcp, Assignment Primary Care Provider [phone] Source Comments You are receiving this document as you are listed as the primary care provider,follow-up provider, or the patient has been referred to you for consultation.This is in compliance with the Medicare and[facility] EHR Incentive Program,which states Providers who transition their patient to another setting of careor provider of care or refers their patient to another provider of care shouldprovide summary care record for each transition of care or referral. 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 Gender Identity Not on file Sexual Orientation Not on file Last Filed Vital Signs Vital Sign Reading Time Taken Comments Blood Pressure 126/79 12/16/2023 11:20 AM RIM TURNING MACHINE OPERATOR Pulse 67 12/16/2023 11:20 AM RIM TURNING MACHINE OPERATOR Temperature - - Respiratory Rate - - Oxygen Saturation - - Inhaled Oxygen Concentration - - Weight 83.9 kg (185 lb) 12/16/2023 11:17 AM RIM TURNING MACHINE OPERATOR Height 178 cm (5' 10.08) 12/16/2023 11:17 AM CS T Body Mass Index 26.48 12/16/2023 11:17 AM RIM TURNING MACHINE OPERATOR Plan of Treatment Health Maintenance Due Date [...] patient's age to complete this topic Insurance [facility] [employer] Care Teams Terrazzo Tile Setter Relationship Specialty Start Date End Date Needs Pcp, [place] [address] PCP - General 12/16/23
--- OUTSIDE RECORDS SUMMARY | 2025-02-22 01:48 | XMS_ITS | Clinical Summary ---
Author Organization [facility] Address [address] [place] [address] Care Team Providers Care Environmental Health And Safety Leader Name Role Phone No Ref-Primary, Physician Primary Care Provider Anitha Anaya MD Unavailable [phone] Allergies Active Allergy Reactions Criticality Noted [...] [facility] [address] [place] [phone] Pete Orozco MD section 02/05/2025 10:38 PM CDT Anesthesia Event [facility] [address] [place] [address] Katlyn Frost MD Schlimmer, James William, MD 02/05/2025 7:39 AM CDT - 02/09/2025 12:38 PM CDT Hospital Encounter [facility] [address] [place] [address] Pete Orozco MD S/P primary low transverse (Primary Dx); Labor and delivery, indication for care Discharge Disposition: Home or Self Care 01/31/2025 Travel 01/18/2025 Home Infusion [facility] [address] [place] [phone] Esther Valenzuela [facility] Hyperemesis gravidarum (Primary Dx) 01/17/2025 5:13 PM SALES ACTIVITY MANAGER - 01/17/2025 7:01 PM SALES ACTIVITY MANAGER Hospital Encounter [facility] [address] [place] [address] Geri Alanis MD Hyperemesis gravidarum (Primary Dx); Infection of peripherally inserted central catheter (PICC), initial encounter Discharge Disposition: Home or Self Care 01/16/2025 11:45 AM SALES ACTIVITY MANAGER Home Care Visit [facility] [address] [place] [phone] Juany Manuel, RN 01/09/2025 2:00 PM SALES ACTIVITY MANAGER Home Care Visit [facility] [address] [place] [phone] Juany Manuel, RN 01/03/2025 Home Infusion [facility] [address] [place] [phone] Gwen Salomon, PharmD 01/02/2025 2:00 PM SALES ACTIVITY MANAGER Home Care Visit [facility] [address] [place] [phone] Ashley London, RN 12/28/2024 Home Infusion [facility] [address] [place] [phone] Bladimir Claudia, [facility] 12/26/2024 12:00 PM SALES ACTIVITY MANAGER Home Care Visit [facility] [address] [place] [phone] Juany Manuel, RN 12/21/2024 Home Infusion [facility] [address] [place] [phone] Lavinia Saldivar, [facility] 12/19/2024 1:30 PM SALES ACTIVITY MANAGER Home Care Visit [facility] [address] [place] [phone] Juany Manuel, RN 12/14/2024 Home Infusion [facility] [address] [place] [phone] Radha Jimenez, PharmD 12/12/2024 12:00 PM SALES ACTIVITY MANAGER Home Care Visit [facility] [address] [place] [phone] Juany Manuel, SUNDAR 12/07/2024 1:30 PM SALES ACTIVITY MANAGER Home Care Visit [facility] [address] [place] [phone] Valente Schuler, RN 12/05/2024 12:00 PM SALES ACTIVITY MANAGER Home Care Visit [facility] [address] [place] [phone] Juany Manuel, RN 11/27/2024 4:49 PM SALES ACTIVITY MANAGER - 11/27/2024 8:31 PM SALES ACTIVITY MANAGER [facility] [address] [place] [address] Pete Orozco MD Discharge Disposition: Home or Self Care 11/27/2024 10:00 AM SALES ACTIVITY MANAGER Home Care Visit [facility] [address] [place] [phone] Juany Manuel RN from Last 3 Months Social History Tobacco Use Types Packs/Day Years Used Date Smoking Tobacco: Never Smokeless Tobacco: Never Tobacco Cessation:Counseling Given: Not Answered Alcohol Use Standard Drinks/Week Comments Not Currently 0 (1 standard drink = 0.6 oz pur e alcohol) Choudrant Depression Scale Answer Date Recorded Last EPDS [...] in an abandoned building, in an overnight senior living, or couch-surfing.) Yes 02/05/2025 Are you worried [...] on file Legal Sex Female 10:15 AM SALES ACTIVITY MANAGER Gender Identity Not on file Sexual Orientation [...] TEST - HIM SCAN 01/17/2025 12:00 AM SALES ACTIVITY MANAGER NON-STRESS TEST - HIM SCAN 01/17/2025 12:00 AM SALES ACTIVITY MANAGER COMPREHENSIVE METABOLIC PANEL STAT 11/27/2024 6:28 PM SALES ACTIVITY MANAGER CBC WITH PLATELETS STAT 11/27/2024 6: 28 PM SALES ACTIVITY MANAGER PROTEIN RANDOM URINE STAT 11/27/2024 5:32 PM SALES ACTIVITY MANAGER from Last 3 Months Results * (ABNORMAL) Hemoglobin (02/06/2025 6:38 AM CDT) Hemoglobin 10.5(L) 11.7 - 15.7 g/dL 02/06/2025 6:58 AM CDT [facility] Blood STRUCTURE OF RIGHT UPPER LIMB / Unknown Venipuncture / Unknown 02/06/2025 6:38 AM CDT 02/06/2025 6:54 AM CDT us Pete Orozco MD LAB - BLOOD ORDERABLES Final Result [facility] [address] [facility] Lab (1st floor, no room number) [place] [address], [facility] * FV AN EPIDURAL DUMMY PERFORMABLE (02/05/2025 10:31 PM CDT) Narrative Yfn MILKA Diego WELL DRILLER HELPER - 02/05/2025 10:31 PM CDT Johnathon Coulter APRN WELL DRILLER HELPER 02/05/2025 11:23 PM Epidural catheter Procedure Note [...] air ANDREW at 8 cm. Needle Type: ToMobimy needle Needle Gauge: 17. Needle Length (Inches): [...] placed, ANDREW @ 8cm, no complications FOR [facility] ([facility]) ONLY: Pain Team Contact information: please page the Pain Team Via Plurchase. Search Pain. During daytime hours, please page the attending first. At night please page the resident first. us Katlyn Frost MD IN ANESTHESIA Final Result * Adult Type and Screen (02/05/2025 8:28 AM CDT) ABO/RH(D) A POS 02/05/2025 8:27 AM CDT [facility] BLOOD BANK Antibody Screen Negative Negative 02/05/2025 8:27 AM CDT RH BLOOD BANK SPECIMEN EXPIRATION DATE [id number] 02/05/2025 8:27 AM CDT BLOOD BANK Blood BLOOD SPECIMEN / Unknown Venipuncture / Unknown 02/05/2025 8:28 AM CDT 02/05/2025 8:53 AM CDT Pete Orozco MD LAB - BLOOD BANK TEST ORDER Final Result BLOOD BANK [address] [place] [address], [facility] * Treponema Abs w Reflex to RPR and Titer (02/05/2025 8:28 AM CDT) Treponema Antibody Total Nonreactive Nonreactive 02/05/2025 1:19 PM CDT [facility] C[facility]/PROT/EN DO Blood BLOOD SPECIMEN / Unknown Venipuncture / Unknown 02/05/2025 8:28 AM CDT 02/05/2025 8:49 AM CDT Pete Orozco MD LAB - BLOOD ORDERABLES Final Result [facility] SPECIAL[facility] CORE/PROT/ENDO [facility] Special[facility] Core/Prot/Endo [address] [facility], [address] [place] [address] * CBC with platelets (02/05/2025 8:28 AM [...] - BLOOD ORDERABLES Final Result [facility] [address] [facility] Lab (1st floor, no room number) [place] [address] * Non-Stress Test - HIM Scan (01/17/2025 12:00 AM SALES ACTIVITY MANAGER) 01/17/2025 Provider Outside PROCEDURES Final Result * Non-Stress Test - HIM Scan (01/17/2025 12:00 AM SALES ACTIVITY MANAGER) 01/17/2025 us Provider Outside PROCEDURES Final Result * (ABNORMAL) Comprehensive metabolic panel (11/27/2024 6:28 PM SALES ACTIVITY MANAGER) Sodium 135 135 - 145 mmol/L 11/27/2024 7:10 PM SALES ACTIVITY MANAGER LABORATORY Potassium 4.2 3.4 - 5.3 mmol/L 11/27/2024 7:10 PM SALES ACTIVITY MANAGER LABORATORY Carbon Dioxide (CO2) 19(L) 22 - 29 mmol/L 11/27/2024 7:10 PM SALES ACTIVITY MANAGER [facility] Anion Gap 13 7 - 15 mmol/L 11/27/2024 7:10 PM [facility] Urea Nitrogen 4.0(L) 6.0 - 20.0 mg/dL 11/27/2024 7:10 PM [facility] Creatinine 0.60 0.51 - 0.95 mg/dL 11/27/2024 7:10 PM [facility] GFR Estimate >90 >60 mL/min/1.7 3m2 11/27/2024 7:10 PM [facility] Comment:eGFR calculated usin 2020 CKD-EPI equation. Calcium 8.8 8.8 - 10.4 mg/dL 11/27/2024 7:10 PM [facility] Comment:Reference intervals for this test were updated on 06/05/2024 to reflect our healthy population more accurately. There may be differences in the flagging of prior results with similar values performed with this method. Those prior results can be interpreted in the context of the updated reference intervals. Chloride 103 98 - 107 mmol/L 11/27/2024 7:10 PM [facility] Glucose 84 70 - 99 mg/dL 11/27/2024 7:10 PM [facility] Alkaline Phosphatase 97 40 - 150 U/L 11/27/2024 7:10 PM [facility] AST 25 0 - 45 U/L 11/27/2024 7:10 PM [facility] ALT 11 0 - 50 U/L 11/27/2024 7:10 PM [facility] Protein Total 6.5 6.4 - 8.3 g/dL 11/27/2024 7:10 PM [facility] Albumin 3.4(L) 3.5 - 5.2 g/dL 11/27/2024 7:10 PM [facility] Bilirubin Total 0.2 <=1.2 mg/dL 11/27/2024 7:10 PM [facility] Blood STRUCTURE OF RIGHT UPPER LIMB / Unknown Venipuncture / Unknown 11/27/2024 6:28 PM SALES ACTIVITY MANAGER 11/27/2024 6:37 PM [facility] Anitha Anaya MD LAB - BLOOD ORDERABLES Final Re sult LABORATORY [facility] [address] Lab (1st floor, no room number) [place] [address]RUST * Protein random urine (11/27/2024 5:32 PM SALES ACTIVITY MANAGER) Total Protein Urine mg/dL <6.0 mg/dL 11/27/2024 6:25 PM SALES ACTIVITY MANAGER LABORATORY Comment:The reference ranges have not been established in urine protein. The results should be integrated into the clinical context for interpretation. Total Protein Urine mg/mg Creat 11/27/2024 6:25 PM SALES ACTIVITY MANAGER LABORATORY Comment:Unable to calculate, urine creatinine or protein is outside the detectable limits. Creatinine Urine mg/dL 50.0 mg/dL 11/27/2024 6:25 PM SALES ACTIVITY MANAGER LABORATORY Comment:The reference ranges have not been established in urine creatinine. The results should be integrated into the clinical context for interpretation. Urine MID-STREAM URINE SPECIMEN / Unknown Non-blood Collection / Unknown 11/27/2024 5:32 PM SALES ACTIVITY MANAGER 11/27/2024 5:51 PM SALES ACTIVITY MANAGER us Anitha Anaya MD LAB - URINE ORDERABLES Final Re sult [facility] [address] Lab (1st floor, no room number) [place] [address]RUST from Last 3 Months Insurance [employer] [facility] [employer] Advance Directives For more information, please contact: [phone] * Full Code (Latest Code Status on [...] patie nt/ legal decision maker Care Teams Environmental Health And Safety Leader Relationship Specialty Start Date End Date No Ref-Primary, Physician PCP - General 12/14/23 Anitha Anaya MD [facility] [address] [place] [address] Physician african studies professor 09/09/24
--- OUTSIDE RECORDS SUMMARY | 2025-02-22 01:48 | XMS_ITS ---
Author Name Interface, [id number] Address [address] [facility] [address] [address] Organization [facility] Address [address] [facility] [address] [address] Care Team Providers Care Dog Sitter Name Role Phone Arielle Blanco Unavailable Unavailable [...] studies to be performed under the direction of??INTERNET TECHNOLOGY MANAGER 3. ??Patient will return weekly??x 2??for continuation of??treatment 4.?? Today??we reviewed??the??side effects including flu type symptoms as well as??infusional reactions. ??Patient verbalized understanding and agrees to proceed. History of Present Illness 34-year-old woman who is a [id number] with final estimated date of delivery 02/11/2025.?? [...] 12 years.?? Her and her live in [place]. 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 Arielle Blanco RN, METAL FURNITURE ASSEMBLER, MA, OCN CC: ? Electronically signed by Arielle Blanco RN, METAL FURNITURE ASSEMBLER, MA, OCN 12/03/2024 15:21 SURGICAL LEAD
--- OUTSIDE RECORDS SUMMARY | 2025-02-22 01:48 | XMS_ITS ---
Author Organization [facility] Address [address] [place] [address] Care Team Providers Care Slicing Machine Tender Name Role Phone No Ref-Primary, Physician Primary Care Provider Anitha Anaya MD Unavailable [phone] Antiemetic Status:Closed (Closed) Start date:07/26/2024 Enrollment date:09/05/2024 End date:01/21/2025 Close reason:Therapy Completed Linked medications:Ondansetron HCl (Discontinued) Linked problems:Hyperemesis gravidarum (Active) Related program episode:Home Infusion (Closed) Continued Care and Services Coordination
--- OUTSIDE RECORDS SUMMARY | 2025-02-22 01:48 | XMS_ITS | CCD ---
Author Name Interface, [id number] lity Address [address] [facility] [address] [place] [address] [facility] Address [address] [facility] [address] [place] [address] Care Team Providers Care Capacity Planner Name Role Phone Arielle Blanco Unavailable Allergies and Adverse Reactions Care Plan Reason for Visit Encounters Immunizations Diagnostic Results Medications Administered Medications Patient Education Problems Procedures Social History Vital Signs
--- OUTSIDE RECORDS SUMMARY | 2025-02-22 01:49 | XMS_ITS | Encounter Summary ---
Author Organization [facility] Address [address] [place] [address] Care Team Providers Care Supervisor Volunteer Services Name Role Phone No Ref-Primary, Physician Primary Care Provider Juany Manuel RN Unavailable Unavailable Giovanna Andersen MD Unavailable Anitha Anaya MD Unavailable Encounter Details Date Type Department Care Team (Latest Contact Info) Description 01/17/2025 5:13 PM GEOTHERMAL SHEET METAL WORKER - 01/17/2025 7:01 PM GEOTHERMAL SHEET METAL WORKER Hospital Encounter [facility] [address] [place] [address] Geri Alanis MD [address] [facility] [address] [place], [place] [address] Hyperemesis gravidarum (Primary Dx); Infection of peripherally [...] on file Legal Sex Female 10:15 AM GEOTHERMAL SHEET METAL WORKER Gender Identity Not on file Sexual Orientation Not on file documented as of this encounter Last Filed Vital Signs Vital Sign Reading Time Taken Comments Blood Pressure 116/81 01/17/2025 5:33 PM GEOTHERMAL SHEET METAL WORKER Pulse - - Temperature 36.7 C (98 F) 01/17/2025 5:33 PM GEOTHERMAL SHEET METAL WORKER Respiratory Rate 16 01/17/2025 5:33 PM GEOTHERMAL SHEET METAL WORKER Oxygen Saturation - - Inhaled Oxygen Concentration - - Weight - - Height - - Body Mass Index - - documented in this encounter Discharge Instructions * Discharge Instructions* Fiorella Pryor, RN - 01/17/2025 6:55 PM GEOTHERMAL SHEET METAL WORKER Learning About When to Call Your Doctor [...] Where can you learn more? Go to [email or web address].net/patiented Enter N531 in the search box to learn more about Learning About When to Call Your Doctor During (After 20 Weeks). Current as of: March 20, 2024 Content Version: 14.3 ?? 2023 [employer]. Care instructions adapted under license by your healthcare professional. If you have questions about a medical condition or this instruction, always ask your healthcare professional. [employer] disclaims any warranty or liability for your use of this information. HERMAL SHEET METAL WORKER HERMAL SHEET METAL WORKER documented in this encounter Medications at Time [...] least 2 hours. Discard remainder of vial. [id number] each 4 01/18/20 25 aspirin (ASA) 81 MG chewable tablet Take 81 mg by mouth 2 times daily. 02/10/20 25 dextrose 5% in lactated ringers in 1,000 mL via CADD pumpIndications:H yperemesis gravidarum Infuse into the vein daily as needed (for dehydration). Remove air via CADD pump. Infuse 2-3 bags (2000 - 3000 mL). Each bag to infuse over 2 hours. [place] Volume 1000 mL. Continuous rate: 500 mL/hr. Add Infuvite-Adult 10ml to one bag daily just prior to infusion. [id number] mL 11/20/2024 11:59 PM GEOTHERMAL SHEET METAL WORKER 4 01/18/20 25 doxylamine (UNISOM) 25 MG TABS tablet Take 25 mg by mouth at bedtime 02/10/20 25 Emergency Supply Kit, Central,Indicatio ns:Hyperemesis gravidarum Patient use for emergency only. Contents: 3 sodium chloride 0.9% flushes, 1 dressing kit, 1 microclave ext set 14, 4 nitrile gloves (med), 6 alcohol prep pads, 1 bacitracin, 1 syringe (10 cc 20 G 1). Call to reorder. [id number] kit 01/18/20 25 famotidine (PEPCID) 20 MG [...] to infusing 2870 mL 11/20/2024 11:59 PM GEOTHERMAL SHEET METAL WORKER 4 01/18/20 25 ondansetron (ZOFRAN ODT) 4 [...] once opened. 2300 mL 12/31/2024 11:59 PM GEOTHERMAL SHEET METAL WORKER 4 01/18/20 25 prochlorperazine (COMPAZINE) 25 MG [...] directed and/or at least every 24 hours. [id number] mL 12/31/2024 11:59 PM GEOTHERMAL SHEET METAL WORKER 01/18/20 25 sterile water, preservative free, injectionIndicati ons:Hyperemesis gravidarum Use 2.2 mLs for reconstitution as needed (with alteplase for catheter occlusion). Direct diluent stream into powder. Mix by gently swirling until dissolved. DO NOT SHAKE. Discard remainder of vial. [id number] mL 01/18/20 25 documented as of this [...] [facility]. Pt was very nervous to go home without po Zofran on hand and states she did ot have any at home HERMAL SHEET METAL WORKER * Plan of Care - Fiorella Pryor [...] afebrile. was already sending inrx for Keflex HERMAL SHEET METAL WORKER documented in this encounter Plan of Treatment Scheduled Orders Name Type Priority Associated Diagnoses Orde r Schedule Non Stress Test by Provider/registered dietitian Routine One Time for 1 Occurrences starting 01/17/2025 until 01/17/2025 documented as of this encounter Procedures Procedure Name Priority Date/Time Associated Diagnosis Comments NON-STRESS TEST - HIM SCAN 01/17/2025 12:00 AM GEOTHERMAL SHEET METAL WORKER NON-STRESS TEST - HIM SCAN 01/17/2025 12:00 AM GEOTHERMAL SHEET METAL WORKER documented in this encounter Results * Non-Stress Test - HIM Scan (01/17/2025 12:00 AM GEOTHERMAL SHEET METAL WORKER) 01/17/2025 us Provider Outside PROCEDURES Final Result * Non-Stress Test - HIM Scan (01/17/2025 12:00 AM GEOTHERMAL SHEET METAL WORKER) 01/17/2025 us Provider Outside PROCEDURES Final Result [...] care documented in this encounter Care Teams Supervisor Volunteer Services Relationship Specialty Start Date End Date No Ref-Primary, Physician PCP - General 12/14/23 Juany Manuel, SUNDAR Home Infusion Measurement Advisor 09/06/2401/21/25 Giovanna Andersen MD [address] [place] [address] Home Infusion Following Provider assistant strength coach 09/09/24 01/21/25 Anitha Anaya MD [facility] [address] [address] Physician assistant strength coach 09/09/24 documented as of this encounter
--- OUTSIDE RECORDS SUMMARY | 2025-02-22 01:49 | XMS_ITS | Encounter Summary ---
Author Organization [facility] Address [address] [place] [address] Care Team Providers Care Sales Director Name Role Phone No Ref-Primary, Physician Primary Care Provider Anitha Anaya MD Unavailable [phone] Encounter Details Date Type Department Care Team (Latest Contact Info) Description 01/31/2025 Travel Social History Tobacco Use Types Packs/Day Years Used Date Smoking Tobacco: Never Smokeless Tobacco: Never Adolescent Education Answer Date Record ed Getting School Help Needed Not on file 08/13 Comments Yes Sex and Gender Information Value Date Recorded Sex Assigned at Not on file Legal Sex Female 10:15 AM DEVELOPMENT REPRESENTATIVE Gender Identity Not on file Sexual Orientation Not on file documented as of this encounter Plan of Treatment Not on file documented as of this encounter Visit Diagnoses Not on filedocumented in this encounter Care Teams Sales Director Relationship Specialty Start Date End Date No Ref-Primary, Physician PCP - General 12/14/23 Anitha Anaya MD [facility] [address] [place] [address] Physician lemon picker 09/09/24 documented as of this encounter
--- OUTSIDE RECORDS SUMMARY | 2025-02-22 01:49 | XMS_ITS | Clinical Summary ---
Author Organization [facility] Address [address] [place] [address] Care Team Providers Care Hand Riveter Name Role Phone Family, Rafaela Wells - [...] on file Legal Sex Female 12:26 PM BOOKIE Gender Identity Not on file Sexual Orientation Not on file Obstetrics History Last Filed Vital Signs Vital Sign Reading Time Taken Comments Blood Pressure 118/69 12/18/2023 12:23 AM BOOKIE Pulse 79 12/18/2023 12:38 AM BOOKIE Temperature 36.2 C (97.2 F) 12/18/2023 12:38 AM BOOKIE Respiratory Rate 16 12/17/2023 6:14 PM BOOKIE Oxygen Saturation 100% 12/17/2023 6:14 PM BOOKIE Inhaled Oxygen Concentration - - Weight 83.5 kg (184 lb) 12/17/2023 8:46 PM BOOKIE Height 177.8 cm (5' 10) 12/17/2023 8:46 PM BOOKIE Body Mass Index 26.4 12/17/2023 8:46 PM BOOKIE Plan of Treatment Health Maintenance Due Date [...] patient's age to complete this topic Insurance [facility] Care Teams Hand Riveter Relationship Specialty Start Date End Date Rafaela Mehta - Prior Valle PCP - General Family Practice 12/17/23
--- OUTSIDE RECORDS SUMMARY | 2025-02-22 01:49 | XMS_ITS | Encounter Summary ---
Author Organization [place] Address [address] [place] [address] Care Team Providers Care Parts Fabricator Name Role Phone No Ref-Primary, Physician Primary Care Provider Anitha Anaya MD Unavailable [phone] Reason for Visit * Auth/Cert (Routine) Specialty Diagnoses / Procedures Referred By Contac t Referred To Contact manager labor delivery Diagnoses Labor and delivery, indication for care [facility] [address] [place] [address] Phone: tel: fax: Referral ID Status Reason Start Date Expiration Date Visits Re quested Visits Authorized [id number] 1 1 Encounter Details Date Type Department Care Team (Late st Contact Info) Description 02/05/2025 10:38 PM CDT Anesthesia Event [facility] [address] [place] [address] Katlyn Frost MD [facility] [place] [address] [place] [address] Lui Cardona MD [facility] ANESTHESIA [address] [place], [place] [id number] Anesthesia Record Procedure Summary Procedure Name Responsible Anesthesiologist Anesthesia Start Time Anesthesia Stop Time section (Abdomen) Katlyn Frost MD 02/05/25223702/05/25 2353 Events Date Time Event Comment 02/05/20252231 MENTAL HEALTH NURSE PRACTITIONER Ready for Procedure 2237 AN REASSESS I attest that I have identified and re-evaluated the patient immediately before the induction of anesthesia and I am satisfied that the anesthetic plan is suitable for the patient's condition and procedure. The first vital signs recorded are pre-induction. Johnathon Coulter APRN MENTAL HEALTH NURSE PRACTITIONER 2237 An Start Anesthesia Star t is [...] Stop Electronically signed by Johnathon Coulter APRN MENTAL HEALTH NURSE PRACTITIONER on February 05, 2025 11:53 PM Meds [...] drink = 0.6 oz pur e alcohol) [place] Depression Scale Answer Date Recorded Last EPDS [...] in an abandoned building, in an overnight nursing home, or couch-surfing.) Yes 02/05/2025 Are you worried [...] on file Legal Sex Female 10:15 AM CARE WORKER Gender Identity Not on file Sexual [...] placed, ANDREW @ 8cm, no complications FOR [facility] ([facility]) ONLY: Pain Team Contact information: please page the Pain Team Via [employer]Search Pain. During daytime hours, please page the [...] and realistic alternatives discussed. Questions answered and patient/financial services representative(s) expressed understanding. - Discussed: - Discussed [...] placed, ANDREW @ 8cm, no complications FOR [facility] ([facility]) ONLY: Pain Team Contact information: please page the Pain Team Via [employer]. Search Pain. During daytime hours, please page the attending first. At night please page the resident first. Katlyn Frost MD [place] ANESTHESIA Final Result documented in this encounter [...] hr documented in this encounter Care Teams Parts Fabricator Relationship Specialty Start Date End Date No Ref-Primary, Physician PCP - General 12/14/23 Anitha Anaya MD [facility] [address] [place] [address] Physician manager labor delivery 09/09/24 documented as of this encounter
--- OUTSIDE RECORDS SUMMARY | 2025-02-22 01:49 | XMS_ITS | Encounter Summary ---
Author Organization [facility] Address [address] [place] [address] Care Team Providers Care Commercial Lease Administrator Name Role Phone No Ref-Primary, Physician Primary Care Provider Juany Manuel RN Unavailable Unavailable Giovanna Andersen MD Unavailable Anitha Anaya MD Unavailable [phone] Encounter Details Date Type Department Care Team (Late st Contact Info) Description 01/18/2025 Home Infusion [facility] [address] [place] [address] Esther Valenzuela [facility] [address] [place] [address] Hyperemesis gravidarum (Primary Dx) Social History Tobacco Use Types Packs/Day Years Used Date Smoking Tobacco: Never Smokeless Tobacco: Never Adolescent Education Answer Date Record ed Getting School Help Needed Not on file 08/13 Comments Yes Sex and Gender Information Value Date Recorded Sex Assigned at Not on file Legal Sex Female 10:15 AM MATH SPECIALIST Gender Identity Not on file Sexual Orientation Not on file documented as of this encounter Plan of Treatment Not on file documented as of this encounter Visit Diagnoses Diagnosis Hyperemesis gravidarum- Primary Mild hyperemesis gravidarum, unspecified as to episode of care documented in this encounter Care Teams Commercial Lease Administrator Relationship Specialty Start Date End Date No Ref-Primary, Physician PCP - General 12/14/23 Juany Manuel, RN Home Infusion Perfume And Toilet Water Maker 09/06/2401/21/25 Giovanna Andersen MD [address] [place] [id number] Home Infusion Following Provider learning and development coordinator 09/09/24 01/21/25 Anitha Anaya MD [facility] [address] [place] [id number] Physician learning and development coordinator 09/09/24 documented as of this encounter
--- OUTSIDE RECORDS SUMMARY | 2025-02-22 01:49 | XMS_ITS | Encounter Summary ---
Author Organization [facility] Address [address] [place] [address] Care Team Providers Care General Passenger Agent Name Role Phone No Ref-Primary, Physician Primary Care Provider Juany Manuel RN Unavailable Unavailable Giovanna Andersen MD Unavailable Anitha Anaya MD Unavailable [phone] Encounter Details Date Type Department Care Team (Late st Contact Info) Description 01/03/2025 Home Infusion [facility] [address] [place] [address] Gwen Salomon, PharmD Social History Tobacco Use Types Packs/Day Years Used Date Smoking Tobacco: Never Smokeless Tobacco: Never Adolescent Education Answer Date Record ed Getting School Help Needed Not on file 08/13 Comments Yes Sex and Gender Information Value Date Recorded Sex Assigned at Not on file Legal Sex Female 10:15 AM HOSE SPRAYER Gender Identity Not on file Sexual Orientation Not on file documented as of this encounter Plan of Treatment Not on file documented as of this encounter Visit Diagnoses Not on filedocumented in this encounter Care Teams General Passenger Agent Relationship Specialty Start Date End Date No Ref-Primary, Physician PCP - General 12/14/23 Juany Manuel, SUNDAR Home [facility]fusion Tuyere Fitter 09/06/2401/21/25 Giovanna Andersen MD [address] [facility] [address] [place], [place] [address] Home Infusion Following Provider corsetier 09/09/24 01/21/25 Anitha Anaya MD [facility] [address] [facility] [address] [place] [address] Physician corsetier 09/09/24 documented as of this encounter
--- OUTSIDE RECORDS SUMMARY | 2025-02-22 01:49 | XMS_ITS | Encounter Summary ---
Author Organization [facility] Address [address] [place] [address] Care Team Providers Care Welder Setter Electron Beam Machine Name Role Phone No Ref-Primary, Physician Primary Care Provider Anitha Anaya MD Unavailable [phone] Reason for Visit * Auth/Cert (Routine) Specialty Diagnoses / Procedures Referred By Contac t Referred To Contact program director air talent Diagnoses Labor and delivery, indication for care [facility] [address] [place] [address] Phone: tel: fax: Referral ID Status Reason Start Date Expiration Date Visits Re quested Visits Authorized [id number] 1 1 Encounter Details Date Type Department Care Team (Late st Contact Info) Description 02/05/2025 10:45 PM CDT - 02/06/2025 12:[address] 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 Copyright 2020 [facility]. All rights reserved. Clinically reviewed by Alanna Monroy, SUNDARC-OB, MSN. [employer] [id number] - Rev 01/13. documented in this encounter [...] (PHN) in to see patient to discuss [facility] ([facility]) programs.Patient is not interested in referral for a nurse visit at this time but will reach out to [facility] if interested in scheduling a nurse visit. PHN discussed [facility] community resource guide and rack cards and left these resources with patient. * Orlando Cardenas MD - 02/07/2025 7:45 AM CDT POD 2 Vss afeb c/o itching and rash on abd FF,NT Incision- intact Ext NT Imp- POD 2, rash due to prep Plan-Benadryl and topical hydrocortisone. Routine care discharge tomorrow * Liseth Ayala PA-C - 02/06/2025 7:36 AM CDT [facility] Obstetrics Post-Op / Progress Note [...] shift note. Outcome: Progressing Flowsheets (Taken 02/09/2025 3168) Plan of Care Reviewed With: patient Overall [...] behavior modeled cue recognition promoted rooming-in promoted puge-un-oejh contact encouraged Goal: Hemostasis Outcome: Progressing Goal: [...] Documentation Taken 02/08/2025 1604 by Mary Varela, agricultural equipment sales engineer Interventions: cold applied medication (see MAR) Taken 02/08/2025 0812 by Mary Varela, agricultural equipment sales engineer Interventions: cold applied medication (see MAR) Intervention: [...] for less than 10 minutes before fatigue. Solar Energy Advisor about to rouse . Nursed for ashort period before non effective at breast. Transfer of 8 mls. Solar Energy Advisor changed plan. Bring infant to breast when [...] on your shift note. 02/07/2025 154 by Desitny Scott RN Outcome: Progressing Flowsheets (Taken 02/07/20251546) [...] Promotion: caring behavior modeled cue recognition promoted hvzy-ag-yxag positioning promoted interaction encouraged parent/caregiver presence encouraged participation in care promoted positive reinforcement provided rooming-in promoted whqg-nd-woxg contact encouraged strengths emphasized Goal: Hemostasis 02/07/2025 [...] Infection Signs and Symptoms 02/07/2025 1547 by eDstiny Scott RN Outcome: Progressing 02/07/2025 1436 by [...] 10:40 AM CDT Visit: was STS when automobile and property underwriter entered the room. Infant was able to [...] Promotion: caring behavior modeled cue recognition promoted uayt-aj-iinp positioning promoted interaction encouraged parent/caregiver presence encouraged participation in care promoted positive reinforcement provided rooming-in promoted qnfv-sa-noog contact encouraged strengths emphasized Goal: Hemostasis Outcome: [...] AM CDT Data: Mami Pete transferred to [facility] via cart at 0225. Baby [...] Orozco MD - 02/05/2025 11:48 PM CDT [facility] Brief Operative Note Pre-operative diagnosis: [...] Name/Title Dr. Orozco Notification Reason Other (Comment) (pcaheco score is 6, clarified if want to do couple doses of cervical ripening first. stated ok to give x2 doses of po miso, then begin iv pit.) * Provider Notification - Ale An RN - 02/05/2025 8:02 AM CDT 02/05/25 1076 Provider Notification Provider Name/Title scott Method of [...] MD LAB - BLOOD ORDERABLES Final Result [facility] Acute Care Lab [address] [facility] Lab (1st floor, no room number) [place] [address] * Adult Type and Screen (02/05/2025 8:28 AM CDT) ABO/RH(D) A POS 02/05/2025 8:27 AM CDT RH BLOOD BANK Antibody Screen Negative Negative 02/05/2025 8:27 AM CDT RH BLOOD BANK SPECIMEN EXPIRATION DATE [id number] 02/05/2025 8:27 AM CDT RH BLOOD BANK Blood BLOOD SPECIMEN / Unknown Venipuncture / Unknown 02/05/2025 8:28 AM CDT 02/05/2025 8:53 AM CDT Pete Orozco MD LAB - BLOOD BANK TEST ORDER Final Result BLOOD BANK [address] [place] [address] * Treponema Abs w Reflex to RPR and Titer (02/05/2025 8:28 AM CDT) Treponema Antibody Total Nonreactive Nonreactive 02/05/2025 1:19 PM CDT [facility] SPECIALTY CORE/PROT/EN DO Blood BLOOD SPECIMEN / Unknown Venipuncture / Unknown 02/05/2025 8:28 AM CDT 02/05/2025 8:49 AM CDT Pete Orozco MD LAB - BLOOD ORDERABLES Final Result [facility] SPECIALTY CORE/PROT/ENDO [facility] Specialty Core/Prot/Endo [address] Building, Room [address] * CBC with platelets (02/05/2025 8:28 [...] - BLOOD ORDERABLES Final Result RH LABORATORY [facility] Acute Care Lab [address] Lab (1st floor, no room number) [place] [address], [facility] documented in this encounter Visit Diagnoses [...] or analgesic side effects. Hold while on CUT FILER or with regular IV opioid dosing. Maximum [...] to rash 0734 ($Given - Provider: Janae Angle RN)1316 ($Given - Provider: Francesca Reagan RN)1946 [...] or analgesic side effects. Hold while on CUT FILER or with regular IV opioid dosing. Maximum [...] provider. documented in this encounter Care Teams Welder Setter Electron Beam Machine Relationship Specialty Start Date End Date No Ref-Primary, Physician PCP - General 12/14/23 Anitha Anaya MD [facility] [address] [address] Physician program director air talent 09/09/24 documented as of this encounter
--- OUTSIDE RECORDS SUMMARY | 2025-02-22 01:49 | XMS_ITS | Encounter Summary ---
Author Organization [facility] Address [address] [place] [address] Care Team Providers Care Activity Coordinator Name Role Phone No Ref-Primary, Physician Primary Care Provider Anitha Anaya MD Unavailable [phone] Reason for Visit * Auth/Cert (Routine) Specialty Diagnoses / Procedures Referred By Contac t Referred To Contact software tester Diagnoses Labor and delivery, indication for care [facility] [address] [place] [address] Phone: tel: fax: Referral ID Status Reason Start Date Expiration Date Visits Re quested Visits Authorized [id number] 1 1 Encounter Details Date Type Department Care Team (Latest Contact Info) Description 02/05/2025 7:39 AM CDT - 02/09/2025 12:38 PM CDT Hospital Encounter [facility] [address] [place] [address] Pete Orozco MD [address] [facility] [address] [place], [place] [address] S/P primary low transverse (Primary Dx); Labor and delivery, indication for care Discharge Disposition: Home or Self Care Social History Tobacco Use Types Packs/Day Years Used Date Smoking Tobacco: Never Smokeless Tobacco: Never Alcohol Use Standard Drinks/Week Comments Not Currently 0 (1 standard drink = 0.6 oz pur e alcohol) [place] Depression Scale Answer Date Recorded Last EPDS [...] in an abandoned building, in an overnight usp, or couch-surfing.) Yes 02/05/2025 Are you worried [...] on file Legal Sex Female 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 Copyright 2020 [facility]. All rights reserved. Clinically reviewed by CYNTHIA Moyer-OB, MSN. easy2map [id number] - Rev 01/13. documented in this encounter [...] (PHN) in to see patient to discuss [facility] ([facility]) programs.Patient is not interested in referral for a nurse visit at this time but will reach out to [facility] if interested in scheduling a nurse visit. PHN discussed [facility] community resource guide and rack cards and left these resources with patient. * Orlando Cardenas MD - 02/07/2025 7:45 AM CDT POD 2 Vss afeb c/o itching and rash on abd FF,NT Incision- intact Ext NT Imp- POD 2, rash due to prep Plan-Benadryl and topical hydrocortisone. Routine care discharge tomorrow * Listeh Ayala PA-C - 02/06/2025 7:36 AM CDT [facility] Obstetrics Post-Op / Progress Note [...] shift note. Outcome: Progressing Flowsheets (Taken 02/09/2025 0502) Plan of Care Reviewed With: patient Overall [...] behavior modeled cue recognition promoted rooming-in promoted clel-wh-zmca contact encouraged Goal: Hemostasis Outcome: Progressing Goal: [...] Documentation Taken 02/08/2025 1604 by Mary Varela, academic associate Interventions: cold applied medication (see MAR) Taken 02/08/2025 0812 by Mary Varela academic associate Interventions: cold applied medication (see MAR) Intervention: [...] Documentation Taken 02/08/2025 1604 by Mary Varela, academic associate Interventions: cold applied medication (see MAR) Taken [...] for less than 10 minutes before fatigue. Strategic Account Manager about to rouse infant. Nursed for ashort period before non effective at breast. Transfer of 8 mls. Strategic Account Manager changed plan. Bring to breast when due [...] Promotion: caring behavior modeled cue recognition promoted omvd-jw-xeja positioning promoted interaction encouraged parent/caregiver presence encouraged participation in care promoted positive reinforcement provided rooming-in promoted lvjl-lh-nvvp contact encouraged strengths emphasized Goal: Hemostasis 02/07/2025 [...] 10:40 AM CDT Visit: was STS when data analyst report writer entered the room. Infant was able [...] Promotion: caring behavior modeled cue recognition promoted gyod-gw-luoz positioning promoted interaction encouraged parent/caregiver presence encouraged participation in care promoted positive reinforcement provided rooming-in promoted cfsv-xf-qrik contact encouraged strengths emphasized Goal: Hemostasis Outcome: [...] AM CDT Data: Mami Pete transferred to [facility] via cart at 0225. Baby [...] Orozco MD - 02/05/2025 11:48 PM CDT [facility] Brief Operative Note Pre-operative diagnosis: 1. Intrauterine [...] RN - 02/05/2025 8:02 AM CDT 02/05/25 2196 Provider Notification Provider Name/Title scott Method of [...] LAB - BLOOD ORDERABLES Final Result LABORATORY [facility] Lab [address] [facility] Lab (1st floor, no room number) [place] [address] * Adult Type and Screen (02/05/2025 8:28 AM CDT) ABO/RH(D) A POS 02/05/2025 8:27 AM CDT RH BLOOD BANK Antibody Screen Negative Negative 02/05/2025 8:27 AM CDT RH BLOOD BANK SPECIMEN EXPIRATION DATE [id number] 02/05/2025 8:27 AM CDT RH BLOOD BANK Blood BLOOD SPECIMEN / Unknown Venipuncture / Unknown 02/05/2025 8:28 AM CDT 02/05/2025 8:53 AM CDT Pete Orozco MD LAB - BLOOD BANK TEST ORDER Final Result BLOOD BANK [address] [place] [address] * Treponema Abs w Reflex to RPR and Titer (02/05/2025 8:28 AM CDT) Treponema Antibody Total Nonreactive Nonreactive 02/05/2025 1:19 PM CDT [facility] SPECIALTY CORE/PROT/EN DO Blood BLOOD SPECIMEN / Unknown Venipuncture / Unknown 02/05/2025 8:28 AM CDT 02/05/2025 8:49 AM CDT Pete Orozco MD LAB - BLOOD ORDERABLES Final Result [facility] SPECIALTY CORE/PROT/ENDO UM Specialty Core/Prot/Endo [address] [facility] [address] Building, Room 3-[address] * CBC with platelets (02/05/2025 8:28 [...] - BLOOD ORDERABLES Final Result RH LABORATORY [facility] Acute Care Lab [address] Lab (1st floor, no room number) [place] [address], [facility] documented in this encounter Visit Diagnoses Diagnosis [...] or analgesic side effects. Hold while on TIME STUDY ENGINEER or with regular IV opioid dosing. Maximum [...] Janae Angel RN)0732 ($Given - Provider: Janae Agnel RN)1328 ($Given - Provider: Mary Varela RN)1930 [...] or analgesic side effects. Hold while on TIME STUDY ENGINEER or with regular IV opioid dosing. Maximum [...] provider. documented in this encounter Care Teams Activity Coordinator Relationship Specialty Start Date End Date No Ref-Primary, Physician PCP - General 12/14/23 Anitha Anaya MD [facility] [address] [facility] [address] [place] [address] Physician software tester 09/09/24 documented as of this encounter
--- OUTSIDE RECORDS SUMMARY | 2025-02-22 01:49 | XMS_ITS ---
Author Name Interface, [facility] Address [address] [facility] [address] [address] Organization [facility] Address [address] [facility] [address] [address] Care Team Providers Care Pharmaceutical Scientist Name Role Phone Arielle Blanco Unavailable Unavailable [...] studies to be performed under the direction of??INDUSTRIAL MAINTENANCE REPAIRER HELPER 3. ??Patient will return weekly??x 2??for continuation of??treatment 4.?? Today??we reviewed??the??side effects including flu type symptoms as well as??infusional reactions. ??Patient verbalized understanding and agrees to proceed. History of Present Illness 34-year-old woman who is a [id number] with final estimated date of delivery 02/11/2025.?? [...] 12 years.?? Her and her live in [place]. 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 Arielle Blanco RN, FAMILY PRACTICE PHYSICIAN ASSISTANT, MA, OCN CC: ? Electronically signed by Arielle Blanco RN, FAMILY PRACTICE PHYSICIAN ASSISTANT, MA, OCN 12/03/2024 15:21 HOT MILL SHEARER
--- OUTSIDE RECORDS SUMMARY | 2025-02-22 01:49 | XMS_ITS | CCD ---
Author Name Interface, [facility] Address [address] [facility] [address] [place] [address] [facility] Address [address] [facility] [address] [place] [address] Care Team Providers Care Inclusion Special Educator Name Role Phone Arielle Blanco Unavailable Allergies and Adverse Reactions Care Plan Reason for Visit Encounters Immunizations Diagnostic Results Medications Administered Medications Patient Education Problems Procedures Social History Vital Signs
--- OUTSIDE RECORDS SUMMARY | 2025-02-22 01:49 | XMS_ITS | Encounter Summary ---
Author Organization [facility] Address [address] [place] [id number] Care Team Providers Care Health Information Coder Name Role Phone No Ref-Primary, Physician Primary Care Provider Juany Manuel RN Unavailable Unavailable Giovanna Andersen MD Unavailable Anitha Anaya MD Unavailable [phone] Reason for Visit * Home Infusion Authorization (Routine) - Authorized Specialty Diagnoses / Procedures Referred By Contml t Referred To Contact Home Infusion [facility] In[facility] [address] [place] [phone] Phone: tel: fax: Referral ID Status Reason Start Date Expiration Date V isits Requested Visits Authorized [id number] Authorized 07/26/2024 07/26/2025 [phone] Encounter Details Date Type Department Care Team (Late st Contact Info) Description 01/16/2025 11:45 AM COMMUNITY PLANNING TECHNICIAN Home Care Visit [facility] [address] [place] [phone] Juany Manuel, RN Social History Tobacco Use Types Packs/Day Years Used Date Smoking Tobacco: Never Smokeless Tobacco: Never Adolescent Education Answer Date Record ed Getting School Help Needed Not on file 08/13 Comments Yes Sex and Gender Information Value Date Recorded Sex Assigned at Not on file Legal Sex Female 10:15 AM COMMUNITY PLANNING TECHNICIAN Gender Identity Not on file Sexual Orientation Not on file documented as of this encounter Last Filed Vital Signs Vital Sign Reading Time Taken Comments Blood Pressure 100/60 01/16/2025 12:07 PM COMMUNITY PLANNING TECHNICIAN Pulse 93 01/16/2025 12:07 PM COMMUNITY PLANNING TECHNICIAN Temperature 36.2 C (97.1 F) 01/16/2025 12:07 PM COMMUNITY PLANNING TECHNICIAN Respiratory Rate 20 01/16/2025 12:07 PM COMMUNITY PLANNING TECHNICIAN Oxygen Saturation 100% 01/16/2025 12:07 PM COMMUNITY PLANNING TECHNICIAN Inhaled Oxygen Concentration - - Weight 103.4 kg (228 lb) 01/16/2025 12:07 PM COMMUNITY PLANNING TECHNICIAN Height - - Body Mass Index 32.71 10/22/2024 3:46 PM COMMUNITY PLANNING TECHNICIAN documented in this encounter Progress Notes * Juany Manuel RN - 01/16/2025 12:12 PM CST Nursing Visit Note: Nurse visit today for CLC for Mami Pete. Machine Leather Trimmer present during visit today: Not Applicable. Intravenous [...] 01/23/25 for CLC Juany Manuel RN 01/16/2025 UNITY PLANNING TECHNICIAN documented in this encounter Plan of Treatment Not on file documented as of this encounter Visit Diagnoses Not on filedocumented in this encounter Care Teams Health Information Coder Relationship Specialty Start Date End Date No Ref-Primary, Physician PCP - General 12/14/23 Juany Manuel RN Home Infusion Screedman/Laborer 09/06/2401/21/25 Giovanna Andersen MD [address] [facility] [address] [id number] Home Infusion Following Provider web assistant 09/09/24 01/21/25 Anitha Anaya MD [facility] [address] [id number] Physician web assistant 09/09/24 documented as of this encounter
--- OUTSIDE RECORDS SUMMARY | 2025-02-22 01:49 | XMS_ITS | Encounter Summary ---
Author Organization [facility] Address [address] [place] [id number] Care Team Providers Care Chemical Laboratory Tester Name Role Phone No Ref-Primary, Physician Primary Care Provider Juany Manuel RN Unavailable Unavailable Giovanna Andersen MD Unavailable Anitha Anaya MD Unavailable [phone] Reason for Visit * Home Infusion Authorization (Routine) - Authorized Specialty Diagnoses / Procedures Referred By Contml t Referred To Contact Home Infusion and In[facility] Services [facility] [address] [place] [phone] Phone: tel: fax: Referral ID Status Reason Start Date Expiration Date V isits Requested Visits Authorized [id number] Authorized 07/26/2024 07/26/2025 [phone] Encounter Details Date Type Department Care Team (Late st Contact Info) Description 01/09/2025 2:00 PM NEWSPAPER VENDOR Home Care Visit [facility] [address] [place] [phone] Juany Manuel, RN Social History Tobacco Use Types Packs/Day Years Used Date Smoking Tobacco: Never Smokeless Tobacco: Never Adolescent Education Answer Date Record ed Getting School Help Needed Not on file 08/13 Comments Yes Sex and Gender Information Value Date Recorded Sex Assigned at Not on file Legal Sex Female 10:15 AM NEWSPAPER VENDOR Gender Identity Not on file Sexual Orientation Not on file documented as of this encounter Last Filed Vital Signs Vital Sign Reading Time Taken Comments Blood Pressure 104/60 01/09/2025 2:22 PM NEWSPAPER VENDOR Pulse 92 01/09/2025 2:22 PM NEWSPAPER VENDOR Temperature 35.9 C (96.6 F) 01/09/2025 2:22 PM NEWSPAPER VENDOR Respiratory Rate 20 01/09/2025 2:22 PM NEWSPAPER VENDOR Oxygen Saturation 99% 01/09/2025 2:22 PM NEWSPAPER VENDOR Inhaled Oxygen Concentration - - Weight 103.4 kg (228 lb) 01/09/2025 2:22 PM NEWSPAPER VENDOR Height - - Body Mass Index 32.71 10/22/2024 3:46 PM NEWSPAPER VENDOR documented in this encounter Progress Notes * Juany Manuel, RN - 01/09/2025 2:37 PM CST Nursing Visit Note: Nurse visit today for CLC for Mami Pete. Fruit Vendor present during visit today: Not Applicable. Intravenous Access: PICC. Note: VSS, patient has follow up appointment with provider next Tuesday afternoon. All questions answered by RN. Saline administered: 10 ml (ml) Supply Check: Does the patient have all the supplies they need for the next visit? Yes Next visit plan: 1 week 01/16/25 at 09/1130 Juany Manuel RN 01/09/2025 PAPER VENDOR documented in this encounter Plan of Treatment Not on file documented as of this encounter Visit Diagnoses Not on filedocumented in this encounter Care Teams Chemical Laboratory Tester Relationship Specialty Start Date End Date No Ref-Primary, Physician PCP - General 12/14/23 Juany Manuel RN Home Infusion Environmental Lawyer 09/06/2401/21/25 Giovanna Andersen MD [address] [id number] Home Infusion Following Provider process control specialist 09/09/24 01/21/25 Anitha Anaya MD [facility] [address] [id number] Physician process control specialist 09/09/24 documented as of this encounter
[2025-02-22 01:50] LABS: C Reactive Protein* 0.8 mg/dL (0.5-1.0)
[2025-02-22 02:10] LABS: HCG Quantitative* < 2.39 mIU/mL
[2025-02-22 02:31] VITALS: BP 124/76; PULSE 85; RESP 16; TEMP 36.8; O2SAT 100
[2025-02-22] MEDS: METHYLERGONOVINE MALEATE 0.2 MG TABLET PO (02:36)
[2025-02-22 03:34] VITALS: BP 124/76; PULSE 85; RESP 16; TEMP 36.8
== END 2025-02-22 03:34 | disposition home or self-care (01) ==
PROVIDERS: Emergency Provider Family Medicine
DX: O72.1 Other immediate postpartum hemorrhage (principal)
CPT/HCPCS: 36415; 76830; 76856; 80048; 84702; 85025; 86140; 86850; 86900; 86901; 99284; A9270

== ENCOUNTER 2025-10-31 14:46 | Emergency (ER) | payer BC, SELFPAY ==
[2025-10-31 14:55] VITALS: BP 148/99; PULSE 83; RESP 16; TEMP 37.1; O2SAT 100; BMI 28.0
--- NOTE | 2025-10-31 15:07 | CRLHL7_ITS ---
For Patients: As a result of the Century Cures Act, medical imaging exams and procedure reports are released immediately into your electronic medical record. You may view this report before your referring provider. If you have questions, please contact your health care provider. INDICATION: Fall TECHNIQUE: CT head without contrast. COMPARISON: CT head without contrast 11/22/2022. FINDINGS: CSF spaces: Within normal limits for age. Brain parenchyma and extra-axial spaces: The winter-white differentiation is normal. No sign of mass, hemorrhage, or midline shift. No extra-axial fluid collection. Skull base and calvarium: The visualized paranasal sinuses and mastoid air cells demonstrate no acute or significant findings. The visualized orbits are grossly unremarkable. No skull fractures. IMPRESSION: Unremarkable noncontrast head CT. Please note that all CT scans at this facility use dose modulation, iterative reconstruction, and/or weight-based dosing when appropriate to reduce radiation dose to as low as reasonably achievable. Dictated by Lavinia Mcallister MD @ 10/31/2025 3:36:48 PM (Electronically Signed)
--- NOTE | 2025-10-31 15:07 | CRLHL7_ITS ---
For Patients: As a result of the Century Cures Act, medical imaging exams and procedure reports are released immediately into your electronic medical record. You may view this report before your referring provider. If you have questions, please contact your health care provider. INDICATION: Fall, neck pain with radiation to right shoulder TECHNIQUE: CT cervical spine without contrast. COMPARISON: None. FINDINGS: Vertebrae: There is straightening of the cervical lordosis. There are no fractures or suspicious bony lesions. Discs and facet joints: Postsurgical changes of C5-C6 disc replacement. Small posterior disc osteophyte complex at C6-C7 and C7-T1. No significant osseous neural foraminal narrowing. The facet joints are unremarkable. Extraspinal findings: Paraspinous soft tissues are unremarkable. IMPRESSION: No acute abnormality of the cervical spine. Please note that all CT scans at this facility use dose modulation, iterative reconstruction, and/or weight-based dosing when appropriate to reduce radiation dose to as low as reasonably achievable. Dictated by Lavinia Mcallister MD @ 10/31/2025 3:30:40 PM (Electronically Signed)
--- NOTE | 2025-10-31 16:29 | ED_ITS ---
HPI - General Adult General Chief complaint: Head Injury/Pain Stated complaint: Fell hit back of head, dizzy, pressure on head Time Seen by Provider: 10/31/25 16:28 Source: patient Mode of arrival: ambulatory Limitations: no limitations History of Present Illness HPI narrative: 34-year-old female coming in today with a headache. Patient states that she tripped over the baby gate hit her home and fell forward hitting her face on hardwood floors. She felt her ears ringing and saw stars right away. She now has a headache and feels a bit sleepy. This occurred approximately 3 hours ago. She does not have any confusion, no slurred speech. No significant neck discomfort but patient is quite concerned because she has had neck surgery in the past. She felt a little nauseated, no vomiting. States that she had a concussion about 10 years ago and felt very similar to how she feels right now. She did not lose consciousness. Related Data Home Medications ?Medication ?Instructions ?Recorded ?Confirmed sertraline 50 mg tablet 50 mg PO DAILY 03/28/2410/21 Allergies Allergy/AdvReac Type Severity Reaction Status Date / Time metoclopramide (From Reglan) Allergy Severe syncope Verified 10/31/25 14:59 chlorhexidine Allergy Rash Verified 10/31/25 14:59 Review of Systems Status of ROS: Reports: 10 or more systems reviewed and unremarkable except as noted in History and below [facility] Medical History No significant past medical history Surgical History History of ?Z98.891 - History of uterine scar from previous surgery (ICD-10) Social History Smoking Status: Never smoker Second hand tobacco smoke exposure: No How often do you have a drink containing alcohol: never AUDIT-C Alcohol total score: 0 Non-prescribed substance use: denies use Exam Narrative: Exam Narrative: Well-nourished well-developed patient in no acute distress. Alert and oriented x3. Answers questions appropriately. Mood and affect are appropriate. Thoughts are goal oriented and rational. No tangential or magical thinking noted. Patient speaks in full sentences without needing to catch her breath. GCS is 15. Patient is speaking and breathing without difficulty. There is no obvious significant bleeding noted. HEENT: Normocephalic atraumatic. No bruising or swelling to the face. Pupils are equally round reactive to light. Extraocular muscles are intact. Conjunctivae are moist without any icterus noted. Moist mucous membranes. No trauma noted to the inside of the mouth. Neck is soft without pain. Cardiovascular: Heart is regular rate and rhythm S1 and S2 are present without any murmurs. Lungs: Clear to auscultation bilaterally no wheezes rhonchi or rales are appreciated. Skin: Well perfused without any obvious rashes. Patient has no tenderness to palpation at the cervical spine. Patient has full range of motion at the neck with flexion, extension, side way bending and rotation without pain. 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 Both were unremarkable. Vital Signs Vital signs: Initial Vital Signs Temperature 98.8 F 10/31/25 14:55 Temperature Source Temporal Artery Scan 10/31/25 14:55 Pulse Rate 83 10/31/25 14:55 Respiratory Rate 16 10/31/25 14:55 Blood Pressure 148/99 H 10/31/25 14:55 Blood Pressure Mean 115 H 10/31/25 14:55 Blood Pressure Position Sitting 10/31/25 14:55 Pulse Oximetry 100 10/31/25 14:55 Oxygen Delivery Method Room Air 10/31/25 14:55 Vital Signs Temperature 98.8 F 10/31/25 14:55 Pulse Rate 83 10/31/25 14:55 Respiratory Rate 16 10/31/25 14:55 Blood Pressure 148/99 H 10/31/25 14:55 Pulse Oximetry 100 10/31/25 14:55 Oxygen Delivery Method Room Air 10/31/25 14:55 Temperature 98.8 F 10/31/25 14:55 Pulse Rate 83 10/31/25 14:55 Respiratory Rate 16 10/31/25 14:55 Blood Pressure 148/99 H 10/31/25 14:55 Pulse Oximetry 100 10/31/25 14:55 Oxygen Delivery Method Room Air 10/31/25 14:55 Medical Decision Making MDM Narrative Medical decision making narrative: 34-year-old female with mild concussion without cognitive deficits. We discussed symptomatic treatment and reasons for follow-up. Imaging Data CT scan - head: Attestation: I have reviewed the pertinent imaging results. Radiologist's impression: TECHNIQUE: CT head without contrast. COMPARISON: CT head without contrast 11/22/2022. FINDINGS: CSF spaces: Within normal limits for age. Brain parenchyma and extra-axial spaces: The winter-white differentiation is normal. No sign of mass, hemorrhage, or midline shift. No extra-axial fluid collection. Skull base and calvarium: The visualized paranasal sinuses and mastoid air cells demonstrate no acute or significant findings. The visualized orbits are grossly unremarkable. No skull fractures. IMPRESSION: Unremarkable noncontrast head CT. CT- Other: Attestation: I have reviewed the pertinent imaging results. Radiologist's impression: TECHNIQUE: CT cervical spine without contrast. COMPARISON: None. FINDINGS: Vertebrae: There is straightening of the cervical lordosis. There are no fractures or suspicious bony lesions. Discs and facet joints: Postsurgical changes of C5-C6 disc replacement. Small posterior disc osteophyte complex at C6-C7 and C7-T1. No significant osseous neural foraminal narrowing. The facet joints are unremarkable. Extraspinal findings: Paraspinous soft tissues are unremarkable. IMPRESSION: No acute abnormality of the cervical spine. Discharge Plan Discharge Clinical Impression: Closed head injury, Mild concussion Patient Disposition: Home, Self-Care Condition: Stable Additional Instructions: Rest for 24 hours then return to activity: Each step should take 24 hours before advancing to the next step. 1. School or work 2. Light physical activity 3. Rigorous activity. If symptoms return, rest for 24 hours and resume at the last step that did not produce symptoms. Okay to use Tylenol or ibuprofen as needed/as directed. If you are not seeing improvement in your symptoms in approximately 5-7 days, follow-up with your primary care provider. Prescriptions: No Action sertraline 50 mg tablet 50 mg PO DAILY Patient Comments: TAKE ONE TABLET BY MOUTH EVERY DAY DIRECTED Follow Up/Referrals: Provider,Not a Local [Primary Care Provider, Family Practice] Stand Alone Forms: [facility] Inst[facility]
== END 2025-10-31 17:05 | disposition home or self-care (01) ==
LOC: ED 17:05
PROVIDERS: Emergency Provider Family Medicine
DX: S06.0X0A Concussion without loss of consciousness, initial encounter (principal); W01.10XA Fall on same level from slipping, tripping and stumbling with subsequent striking against unspecified object, initial encounter
CPT/HCPCS: 70450; 72125; 99284